=== PATIENT | female | born 1980 | race Caucasian/White ===

== ENCOUNTER 2022-07-15 13:50 | Outpatient (CLI) | payer OTHER, SELFPAY ==
--- NOTE | 2022-07-15 14:00 | CRLHL7_ITS ---
For Patients: As a result of the Century Cures Act, medical imaging exams and procedure reports are released immediately into your electronic medical record. You may view this report before your referring provider. If you have questions, please contact your health care provider. BILATERAL SCREENING MAMMOGRAM WITH COMPUTER-AIDED DETECTION AND TOMOSYNTHESIS TECHNIQUE: CC and MLO views were obtained. These mammographic images have been obtained using full-field digital technique. These mammographic images were interpreted with the benefit of computer-aided detection. Breast Tomosynthesis was used in this interpretation. COMPARISON FILM: 12/05/20, 10/08/19. FINDINGS: There are scattered areas of fibroglandular density IMPRESSION: There is no radiographic evidence for malignancy. ASSESSMENT: BI-RADS Category 1: Negative RECOMMENDATION: Routine screening mammogram in 1 year. A lay language report of this examination will be provided to the patient. Radhames Carlos M.D. Diagnostic Radiologist [email or web address] ARRON/Dictated by: Radhames Carlos MD @ 07/16/2022 10:36:00 AM (Electronically Signed)
== END 2022-07-15 13:51 | disposition home or self-care (01) ==
LOC: MAMMO 13:51
PROVIDERS: Visit Provider Registered Nurse
DX: Z12.31 Encounter for screening mammogram for malignant neoplasm of breast (principal)
CPT/HCPCS: 77063; 77067

== ENCOUNTER 2023-07-22 13:02 | Outpatient (CLI) | payer OTHER, SELFPAY ==
--- NOTE | 2023-07-22 13:20 | CRLHL7_ITS ---
For Patients: As a result of the Cures Act, medical imaging exams and procedure reports are released immediately into your electronic medical record. You may view this report before your referring provider. If you have questions, please contact your health care provider. BILATERAL SCREENING MAMMOGRAM WITH COMPUTER-AIDED DETECTION AND TOMOSYNTHESIS TECHNIQUE: CC and MLO views were obtained. These mammographic images have been obtained using full-field digital technique. These mammographic images were interpreted with the benefit of computer-aided detection. Breast Tomosynthesis was used in this interpretation. COMPARISON FILM: 07/15/22, 12/05/20, 10/08/19. FINDINGS: There are scattered areas of fibroglandular density IMPRESSION: There is no radiographic evidence for malignancy. ASSESSMENT: BI-RADS Category 1: Negative RECOMMENDATION: Routine screening mammogram in 1 year. A lay language report of this examination will be provided to the patient. Harry Martinez M.D. Diagnostic/Nuclear Medicine Radiologist [email or web address] ARRON/Dictated by: Harry Martinez MD @ 07/23/2023 10:39:00 AM (Electronically Signed)
== END 2023-07-22 13:03 | disposition home or self-care (01) ==
LOC: MAMMO 13:04
PROVIDERS: Visit Provider Registered Nurse
DX: Z12.31 Encounter for screening mammogram for malignant neoplasm of breast (principal)
CPT/HCPCS: 77063; 77067

== ENCOUNTER 2024-06-22 16:12 | Outpatient (CLI) | payer OTHER, SELFPAY ==
[2024-06-22 21:01] LABS: Chlamydia DNA Amplified* NOT DETECTED (No Detected); GC DNA Amplified* NOT DETECTED (No Detected)
== END 2024-06-22 16:13 | disposition home or self-care (01) ==
PROVIDERS: Visit Provider Registered Nurse
DX: Z01.419 Encounter for gynecological examination (general) (routine) without abnormal findings (principal); I10 Essential (primary) hypertension; R63.5 Abnormal weight gain; Z11.3 Encounter for screening for infections with a predominantly sexual mode of transmission; Z86.32 Personal history of gestational diabetes
CPT/HCPCS: 84443; 87491; 87591

== ENCOUNTER 2024-07-27 15:22 | Outpatient (CLI) | payer OTHER, SELFPAY ==
--- NOTE | 2024-07-27 15:40 | CRLHL7_ITS ---
For Patients: As a result of the Cures Act, medical imaging exams and procedure reports are released immediately into your electronic medical record. You may view this report before your referring provider. If you have questions, please contact your health care provider. BILATERAL SCREENING MAMMOGRAM WITH COMPUTER-AIDED DETECTION AND TOMOSYNTHESIS TECHNIQUE: CC and MLO views were obtained. These mammographic images have been obtained using full-field digital technique. These mammographic images were interpreted with the benefit of computer-aided detection. Breast Tomosynthesis was used in this interpretation. COMPARISON FILM: 07/22/23, 07/15/22, 12/05/20. FINDINGS: There are scattered areas of fibroglandular density IMPRESSION: There is no radiographic evidence for malignancy. ASSESSMENT: BI-RADS Category 2: Benign RECOMMENDATION: Routine screening mammogram in 1 year. A lay language report of this examination will be provided to the patient. Radhames Carlos M.D. Diagnostic Radiologist [email or web address] Transcribed: 4:15 p.marian carmen/Dictated by: Radhames Carlos MD @ 07/28/2024 9:08:00 AM (Electronically Signed)
== END 2024-07-27 15:23 | disposition home or self-care (01) ==
LOC: MAMMO 15:23
PROVIDERS: Visit Provider Registered Nurse
DX: Z12.31 Encounter for screening mammogram for malignant neoplasm of breast (principal)
CPT/HCPCS: 77063; 77067

== ENCOUNTER 2024-08-23 07:13 | Outpatient (CLI) | payer OTHER, SELFPAY ==
--- NOTE | 2024-08-23 08:19 | W.ANESCHARGE ---
Anesthesia Charges Start Date/Time Anesthesia Start Date: 08/23/24 Anesthesia Start Time: 07:53 Stop Date/Time Anesthesia Stop Date: 08/23/24 Anesthesia Stop Time: 08:17
--- NOTE | 2024-08-23 12:04 | W.ANESCHARGE ---
Anesthesia Charges Start Date/Time Anesthesia Start Date: 08/23/24 Anesthesia Start Time: 07:53 Stop Date/Time Anesthesia Stop Date: 08/23/24 Anesthesia Stop Time: 08:17
== END 2024-08-23 07:14 | disposition home or self-care (01) ==
LOC: OP CLINIC 07:14
PROVIDERS: Visit Provider Internal Medicine
DX: Z12.11 Encounter for screening for malignant neoplasm of colon (principal); Z86.010 Personal history of colon polyps
CPT/HCPCS: 00811; 00812; 45378; J2704

== ENCOUNTER 2024-12-02 10:53 | Outpatient (CLI) | payer OTHER, SELFPAY | END 2024-12-02 10:54 | disposition home or self-care (01) | LOC: NFLDREF 12-04 23:38 | PROVIDERS: Visit Provider Physician Assistant | DX: J02.9 Acute pharyngitis, unspecified (principal); N93.9 Abnormal uterine and vaginal bleeding, unspecified; N92.3 Ovulation bleeding | CPT/HCPCS: 87086 ==

== ENCOUNTER 2025-04-05 08:38 | Outpatient (CLI) | payer OTHER, SELFPAY | END 2025-04-05 08:39 | disposition home or self-care (01) | PROVIDERS: PCP Registered Nurse; Visit Provider Internal Medicine | DX: Z76.89 Persons encountering health services in other specified circumstances (principal); N02.B1 Recurrent and persistent immunoglobulin A nephropathy with glomerular lesion; I10 Essential (primary) hypertension | CPT/HCPCS: 99001 ==

== ENCOUNTER 2025-04-11 10:45 | Emergency (ER) | payer OTHER, SELFPAY ==
--- OUTSIDE RECORDS SUMMARY | 2025-04-11 10:48 | XMS_ITS | Encounter Summary ---
Author Organization [facility] Address [address] [place] [id number] Care Team Providers Care Satellite Tv Technician Installer Name Role Phone Elsewhere, Pcp Primary Care Provider Unavailabl e Encounter Details Date Type Department Care Team (Latest Contact Info) Description 03/24/2025 9:18 AM CDT - 03/24/2025 2:29 PM CDT Hospital Encounter Department of Laboratory Medicine and Pathology, [facility] in [place], [place] [address] [place] [address] Aleisha Sales T, AUTO WHEEL ALIGNMENT SPECIALIST, C.N.P. 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 No 03/30/2024 Social Connection and Isolat ion Panel [NHANES] Answer Date Recorded Frequency of Communication w ith Friends and Family Three times a week 07/16/2019 Frequency of Social Gatherin gs with Friends and Family Once a week 07/16/2019 Attends Islam Services More than 4 times per year 07/16/2019 Active Member of Clubs or Organizations No 07/16/2019 Attends Club or Organization Meetings Patient de veronicaed 07/16/2019 Marital Status 07/16/2019 AUDIT-C Answer Date Recorded Frequency of Alcohol Consumption 2-4 times a mon 06/17/2019 Average Number of Drinks 1 or 2 019 Frequency of Binge Drinking Less than monthly Overall Financial Resource Strain (CARDIA) Answe r Date Recorded Difficulty of Paying Living Expenses Not hard at all 06/17/2019 [facility] - Occupational Stress Questionnaire Answer Date Recorded Feeling of Stress Not at all 06/17/2019 Exercise Vital Sign Answer Date Recorde d On average, how many days pe r week do you engage in moderate to strenuous exercise (like a brisk walk)? 3 days 03/30/2024 On average, how many minutes do you engage in exercise at this level? 30 min 03/30/2024 Hunger Vital Sign Answer Date Recorded Within the past 12 months, y ou worried that your food would run out before you got the money to buy more. Never true 03/30/20 Within the past 12 months, t he food you bought just didn't last and you didn't have money to get more. Never true 03/30/2024 PRAPARE - Transportation Answer Date Re corded In the past 12 months, has l ack of transportation kept you from medical appointments or from getting medications? No 03/03 In the past 12 months, has l ack of transportation kept you from meetings, work, or from getting things needed for daily living? No 03/30/2024 Nutrition Answer Date Recorded On average, how many serving s of fruits and vegetables do you eat per day (serving size is equal to 1 cup or approximately the size of a tennis ball)? 3-5 03/30/2024 Dental Answer Date Recorded Dental: Regular Dentist Yes 04/07/20 Employment Answer Date Recorded Employment status Employed and actively working without restrictions 03/30/2024 Housing Stability Answer Date Recorded What is your living situation today? I have a [facility] place to live 03/30/2024 Education Answer Date Recorded What is the highest level of school you have completed or the highest degree you have received? 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 amoxicillin-pot clavulanate (Augmentin) 875-125 mg per tablet Take 1 tablet by mouth 2 (two) times a day. 12/20/2024 5 candesartan (ATACAND) 4 mg tablet Take 1 tablet by mouth daily. 5 cholecalciferol (Vitamin D3) 50 mcg (2,000 Unit) capsule Take 2,000 Units by mouth daily. 5 fluticasone propionate (Flovent HFA) 110 mcg/actuation inhaler Inhale 2 puffs 2 (two) times a day. Rinse mouth with water after use to reduce aftertaste and incidence of candidiasis. Do not swallow. 12 g 11 01/27/2025 5 hydroCHLOROthiazi de (MICROZIDE) 12.5 mg capsule Take 12.5 mg by mouth as directed. Every other day 5 predniSONE (Deltasone) 20 mg tablet Take 20 mg by mouth daily. TAKE 2 TABLETS BY MOUTH DAILY FOR 3 DAYS THEN TAKE 1 TABLET BY MOUTH DAILY FOR 2 DAYS 12/13/2024 5 documented as of this encounter Plan of Treatment Upcoming Encounters Date Type Department Care Team (Late st Contact Info) Description 04/26/2025 8:00 AM CDT Telemedicine Division of Nephrology and Hypertension in [place], [place] [address] [place] [address] Ángel Cleveland M.B.B.S. 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 LAB URINE ORDER PRUDENCE Final Result [facility] [address] [facility] 200 [place] [address] * Osmolality, Urine (03/24/2025 10:00 AM CDT) Osmolality, U 228 150 - 1150 mOsm/kg 03/24/2025 10:45 AM CDT DTL Urine 03/24/2025 10:0 0 AM CDT 03/24/2025 10:00 AM CDT Aleisha Sales APRN, C.N.P. LAB URINE ORDER PRUDENCE Final Result [facility] [address] 200 [place] [address] * pH, Urine (03/24/2025 10:00 AM CDT) Pathologist [facility] pH, U 5.6 4.5 - 8.0 03/24/2025 10: 45 AM CDT DT Urine 03/24/2025 10:0 0 AM CDT 03/24/2025 10:00 AM CDT Aleisha Sales APRN, C.N.P. LAB URINE ORDER PRUDENCE Final Result [facility] [address] 200 [place] [address] * Microscopic Automated (03/24/2025 10:00 AM CDT) Microscopy Normal 03/24/2025 10:27 AM CDT DTL RBC None Seen <3 /hpf 03/24/2025 10:27 AM CDT DTL WBC None Seen /hpf 03/24/2025 10:27 AM CDT DTL Comment: ----REFERENCE VALUE---- <4 (Males) <11 (Females) Urine 03/24/2025 10:0 0 AM CDT 03/24/2025 10:00 AM CDT us Aleisha Sales APRN, C.N.P. LAB URINE ORDER PRUDENCE Final Result Performing Organization Address [facility] de Phone Number [facility] [address] [place], [place] [phone] [place] [address] 200 [place] [address] * (ABNORMAL) Urinalysis, with Microscopic: Urine, Midstream (03/24/2025 10:00 AM CDT) Source Urine, Urine, Midstream 03/24/2025 10:00 AM CDT DTL Color, U Yellow 03/24/2025 10:00 AM CDT DTL Clarity, U Clear 03/24/2025 10:00 AM CDT DTL Protein, U 8 <26 mg/dL 03/24/2025 10:46 AM CDT DTL Protein/Osmol ality 0.35 <0.42 ratio 03/24/2025 10:46 AM CDT DTL Predicted 24 HR Protein, U 258(H) <229 mg/24 h 03/24/2025 10:46 AM CDT DTL Predicted Range 64-1046 mg/24 h 03/24/2025 10:46 AM CDT DTL Urine (Urine, Midstream) 03/24/2025 10:00 AM CDT 03/24/2025 10:00 AM CDT us Aleisha Sales APRN, C.N.P. 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
--- OUTSIDE RECORDS SUMMARY | 2025-04-11 10:48 | XMS_ITS | Encounter Summary ---
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 [address] [place] [address] Phone: tel: fax: [facility] Referral ID Status Reason Start Date Expiration Date Visits Re quested Visits Authorized [id number] Closed 03/24/2025 09/23/20[address] 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 [address] [place] [address] Phone: tel: fax: [facility] Referral ID Status Reason Start Date Expiration Date Visits Re quested Visits Authorized [id number] Closed 02/04/2025 08/06/2026 1 1 Encounter Details Date Type Department Care Team (Latest Contact Info) Description 03/24/2025 2:00 PM CDT Comprehensive Visit Division of Pulmonary Medicine in [place], [place] [address] [place] [phone] Atif Ambrose M.D. 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) Social History Tobacco Use Types Packs/Day Years Used Date Smoking Tobacco: Never Smokeless Tobacco: Never Alcohol Use Standard Drinks/Week Comments Yes 2 (1 standard drink = 0.6 oz pur e alcohol) 1-2 per week [facility] Utilities Answer Date Recorded In the past [...] and Family Once a week 07/16/2019 Attends Buddhism Services More than 4 times per year 07/16/2019 Active Member of Clubs or Organizations No 07/16/2019 Attends Club or Organization Meetings Patient murrayed 07/16/2019 Marital Status 07/16/2019 AUDIT-C Answer Date Recorded Frequency of Alcohol Consumption 2-4 times a mon 06/17/2019 Average Number of Drinks 1 or 2 019 Frequency of Binge Drinking Less than monthly Overall Financial Resource Strain (CARDIA) Answe r Date Recorded Difficulty of Paying Living Expenses Not hard at all 06/17/2019 [facility] Occupat ional [facility] - Occupational Stress [...] your living situation today? I have a [facility] place to live 03/30/2024 Education Answer Date Recorded What is the highest level of school you have completed or the highest degree you have received? 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 Gender Identity Female 05/12/2018 9:12 AM CDT Sexual Orientation Straight 05/12/2018 9: 12 AM CDT documented as of this encounter Last Filed Vital Signs Vital Sign Reading Time Taken Comments Blood Pressure 139/85 03/24/2025 1:53 PM CDT Pulse 80 03/24/2025 1:53 PM CDT Temperature 36.3 C (97.3 F) 03/24/2025 1:53 PM CDT Respiratory Rate - - Oxygen Saturation 98% 03/24/2025 1:53 PM CDT Inhaled Oxygen Concentration - - Weight 93.2 kg (205 lb 7.5 oz) 03/24/2025 1:53 P M CDT Height 170 cm (5' 6.93) 03/24/2025 1:53 PM CDT Body Mass Index 32.25 03/24/2025 1:53 PM CDT documented in this encounter H&P Notes * Atif Ambrose M.D. - 03/24/2025 2:00 PM CDT SUBJECTIVE CHIEF COMPLAINT / REASON FOR VISIT Mrs. Glendy Vieira is a 45 y.o. 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 VASCULITIS HISTORY Ms. Vieira has a history of IgA nephropathy (diagnosed at age 15, managed with blood pressure control) who was initially seen at the [facility] in 2012 for evaluation of shortness of breath. At that time she was found to have subglottic stenosis and she was also noted to have a positive MPO ANCA. She was told that vasculitis was in the list of differentials. She was referred to ENT to evaluate thesubglottic stenosis. She had a CO2 laser resection, Kenalog injections, mitomycin injections and steroid therapy without much relief in 2012. 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 In addition, working out would be even more challenging than usual. She was then seen by Dr. Vargas in clinic. It was noted that her MPO ANCA was still positive. She was also seen by ENT and was started on 40 mg of prednisone to taper over 2 months based on their exam showing inflammation in the infraglottic area. They had talked about starting Flonase as well but ultimately decided to go with oral steroids. In addition, she was referred to GI for evaluation of reflux. She does have acid reflux whileupright based on ambulatory pH monitoring and was restarted on omeprazole. She feels that while shewas on prednisone, she had improved in terms of shortness of breath but she did gain weight while on it. She has been off steroids since summer She also has Raynaud's phenomenon which she has had since childhood. She also has cold-induced urticaria managed with Zyrtec. Finally, she is allergic to sulfa. Last seen here in 2020. At that time no signs or symptoms suggesting worsening of her subglottic stenosis or the development of other symptoms of vasculitis over the preceding 2 years. No immunosuppressinve therapy recommended, but continuation of Flovent 2 puffs twice daily, omeprazole 40 mg dailyand dietary and behavioral reflux precautions. HISTORY OF PRESENT ILLNESS Since her last visit here 4 years ago she has continued to do well. She has not experienced any progressive dyspnea on exertion suggesting any organ system involvement of MPO ANCA associated vasculitis. She was evaluated at the end of January by Aleisha Sales in ENT, and no progressive narrowing in the subglottic region was noted. Her return evaluation in ENT was prompted by a prolonged (almost 2 months) conley with respiratory symptoms in the aftermath of an influenza infection around [place]. These symptoms have since completely resolved. OBJECTIVE Vitals: 03/24/25 1353 BP: 139/85 Patient Position: Sitting Pulse: 80 Temp: 36.3 ??C Height: 170 cm Weight: 93.2 kg SpO2: 98% TempSrc: Temporal PHYSICAL EXAM General: Well appearing. No conversational dyspnea. No coughing during evaluation. 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 C-reactive protein is mildly elevated of 5.5, which is better than testing obtained with the last 6 years. Her MPO ANCA level remains elevated at 7.7. Urinalysis shows trace hemoglobin and mild proteinuria at 258. No chest roentgenogram was obtained at this visit. Complete pulmonary function testing showed normal lung volumes, flows and diffusing capacity, representing no change compared to last testing in 2020. Again, there is no evidence for any disease activity of MPO ANCA associated vasculitis, and consequently no reason for immunosuppression from that end. In light of her IgA nephropathy, the gradually rising serum creatinine is of concern, and in light of the latest evidence the mere observation approach, given her young age, may no longer reflect thestate of the art. I discussed this with Dr. Marie from on glomerulonephritis clinic, and she kindly agreed to see Mrs Vieira on April 08 or consultation. documented in this encounter Plan of Treatment Upcoming Encounters Date Type Department Care Team (Late st Contact Info) Description 04/26/2025 8:00 AM CDT Telemedicine Division of Nephrology and Hypertension in [place], [place] [address] [place] [phone] Ángel Cleveland M.B.B.S. 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
--- OUTSIDE RECORDS SUMMARY | 2025-04-11 10:48 | XMS_ITS | Encounter Summary ---
Author Organization [facility] Address [address] [place] [address] Care Team Providers Care Vice President Of Instruction Name Role Phone Elsewhere, Pcp Primary Care Provider Unavailabl e Reason for Visit * Outpatient (Routine) - Closed Specialty Diagnoses / Procedures Referred By Parul chauhan Referred To Contact Otorhinolaryngology Aleisha Sales APRN, C.N.P. [address] [place] [phone] Phone: tel: fax: [facility] Referral ID Status Reason Start Date Expiration Date Visits Re quested Visits Authorized [id number] Closed 02/01/2025 08/03/2026 1 1 Encounter Details Date Type Department Care Team (Latest Contact Info) Description 03/24/2025 11:15 AM CDT Office Visit Department of Otorhinolaryngology in [place], [place] [address] [place] [phone] Aleisha Sales APRN, C.N.P. 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 No 03/30/2024 Social Connection and Isolat ion Panel [NHANES] Answer Date Recorded Frequency of Communication w ith Friends and Family Three times a week 07/16/2019 Frequency of Social Gatherin gs with Friends and Family Once a week 07/16/2019 Attends Adventism Services More than 4 times per year [...] Living Expenses Not hard at all 06/17/2019 [facility] of Occupat ional Health - Occupational Stress [...] your living situation today? I have a mini place to live 03/30/2024 Education Answer Date Recorded What is the highest level of school you have completed or the highest degree you have received? Master's degree (e.g., MA, MS, Viraj, MEd, CP BLEACHER OPERATOR, SIMONE) 06/16/2019 Comments Unknown Sex and Gender Information Value Date Recorded Sex Assigned at Female 05/12/2018 9:12 AM CDT Legal Sex Female 5:22 PM PHOTOGRAPHER'S MODEL Gender Identity Female 05/12/2018 9:12 AM CDT Sexual Orientation Straight 05/12/2018 9: 12 AM CDT documented as of this encounter Progress Notes * Aleisha Sales, CORAL, C.N.P. - 03/24/2025 11:15 AM CDT Images from the original note were not included. The patient verbally consented to an audio recording of their visit to assist with the completion of documentation. SUBJECTIVE CHIEF COMPLAINT/ REASON FOR VISIT 1. Granulomatosis with polyangiitis 2. 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 Glendy Vieira is a 45 year old female with granulomatosis with polyangiitis and subglottic stenosis who presents for evaluation of her breathing difficulties. She experienced worsening breathing, particularly at night, with episodes of severe difficulty during her last visit in January 2025. Infraglottic edema was noted at that time. She was started on Flovent, 110 mcg, two puffs twice a day. She then switch to Arnuity Ellipta 1 puff daily. Overall, shenotes a significant improvement in her breathing with no ???scary?? episodes of shortness of breath. However, she still experiences shortness of breath when walking up stairs or talking while walking.Severe episodes have not recurred, and she feels the influenza has resolved. She is scheduled for pulmonary function testing early this afternoon and follow up with Dr. Ambrose for assessment of her GPA. She reports her peak flow meter readings are in the 350 range and overall she can complete all activities of daily living without difficulty CURRENT MEDICATIONS Reviewed and updated in the EMR. Allergies Allergen Reactions Midazolam Hypotension (Reselect Reaction) Sulfa (Sulfonamide Antibiotics) Itching Erythromycin Rash OBJECTIVE PHYSICAL EXAMINATION Physical Exam HEENT: Ears normal. Vocal cords improved, less erythematous. General: 45 y.o. year old female, in no acute distress. Skin: No rashes or lesions. Ears: Bilateral canals and TM's normal. Nose: [place] and moist. Oral Cavity: [place] and moist. Mucous membranes normal . [place] dentition noted. Neck: No palpable lymphadenopathy. PROCEDURE NOTE Procedure: Tracheoscopy Details: After verbal consent obtained, topical decongestion and anesthesia with lidocaine and phenylephrinewas applied. The flexible laryngoscope was inserted on the left side. The nasal cavity, nasopharynx, oropharynx, and hypopharynx were normal. The larynx was anesthetized with 4% lidocaine via the EZ sprayer. At the level of the larynx, the epiglottis, false vocal folds, true vocal folds, arytenoids, and pyriform sinuses are without masses or lesions. The true vocal folds are mobile bilaterally. The scope was advanced below the glottis into the subglottis and upper trachea with edema noted in the infraglottic region, less erythema than the prior exam. The patient tolerated the procedure well. 01/2024 - initiated inhaled steroid 03/24/25 ASSESSMENT / PLAN #1 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) #2 Stenosis Subglottic Assessment & Plan Subglottic/infraglottic stenosis Improved breathing, reduced infraglottic edema, no recent respiratory distress, minor exertional limitations. Inhaled steroid therapy beneficial. - Continue Arnuity Ellipta, one puff daily. - Rinse and gargle after using inhaled steroid. - Perform pulmonary function testing today, as scheduled - Consult with Dr. Ambrose in pulmonary medicine, later today has scheduled - Review pulmonary function test results and Dr. Ambrose consult with sales representative cash registers. - Follow up after reviewing test results and consulting with sales representative cash registers. PATIENT EDUCATION: Ready to learn, no apparent learning barriers were identified; learning preferences include listening. Explained diagnosis and treatment plan; patient expressed understanding of the content. documented in this encounter Plan of Treatment Upcoming Encounters Date Type Department Care Team (Late st Contact Info) Description 04/26/2025 8:00 AM CDT Telemedicine Division of Nephrology and Hypertension in [place], [place] [address] [place] [phone] Ángel Cleveland M.B.BMatheusS. [address] [place] [phone] Sylvia Jackman, NERYN, LD [address] [place] [phone] documented as of this encounter Visit Diagnoses Diagnosis 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)- Primary Stenosis Subglottic documented in this encounter Care Teams Vice President Of Instruction Relationship Specialty Start Date End Date Elsewhere, Pcp PCP - General Family Medicine 07/16/18 documented as of this encounter
--- OUTSIDE RECORDS SUMMARY | 2025-04-11 10:48 | XMS_ITS | Encounter Summary ---
Author Organization [facility] Address [address] [place] [address] Care Team Providers Care Digester Name Role Phone Elsewhere, Pcp Primary Care Provider Unavailabl e Encounter Details Date Type Department Care Team (Latest Contact Info) Description 03/24/2025 9:18 AM CDT - 03/24/2025 2:29 PM CDT Hospital Encounter Department of Laboratory Medicine and Pathology, [facility] in [place], [place] [address] [place] [phone] Aleisha Sales T, MACHINE TOOL OPERATOR, C.N.P. [address] [place] [phone] 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); Stenosis Subglottic Discharge Disposition: Home or Self Care Social History Tobacco Use Types Packs/Day Years Used Date Smoking Tobacco: Never Smokeless Tobacco: Never Alcohol Use Standard Drinks/Week Comments Yes 2 (1 standard drink = 0.6 oz pur e alcohol) 1-2 per week [facility] Utilities Answer Date Recorded In the [...] and Family Once a week 07/16/2019 Attends Catholic Services More than 4 times per [...] Living Expenses Not hard at all 06/17/2019 [employer] of Occupat ional Health - Occupational Stress [...] Master's degree (e.g., MA, MS, Viraj, MEd, EMERGENCY DISPATCH OPERATOR, SIMONE) 06/16/2019 Comments Unknown Sex and Gender Information Value Date Recorded Sex Assigned at Female 05/12/2018 9:12 AM CDT Legal Sex Female 5:22 PM ACCOUNT SERVICES ANALYST Gender Identity Female 05/12/2018 9:12 AM CDT [...] Telemedicine Division of Nephrology and Hypertension in [place], [place] [address] [place] [address] Ángel Cleveland M.B.B.S. [address] [place] [address] Sylvia Jackman, NERYN, LD [address] [place] [phone] documented as of this encounter Procedures Procedure Name Priority Date/Time Associated Diagnosis Comments ANCA VASCULITIS PANEL, S Routine 03/24/2025 9:27 AM CDT 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) Stenosis Subglottic CYTOPLASMIC NEUTROPHIL ABS, S Routine 03/24/2025 9:27 AM CDT CBC WITH DIFFERENTIAL, B Routine 03/24/2025 9:27 AM CDT 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) Stenosis Subglottic C-REACTIVE PROTEIN (CRP), S/P Routine 03/24/2025 9:27 AM CDT 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) Stenosis Subglottic URIC ACID, S/P Routine 03/24/2025 9:27 AM CDT 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) Stenosis Subglottic PHOSPHORUS (INORGANIC), S Routine 03/24/2025 9:27 AM CDT 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) Stenosis Subglottic GLUCOSE, FASTING, S/P Routine 03/24/2025 9:27 AM CDT 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) Stenosis Subglottic COMPREHENSIVE METABOLIC PANEL, S/P Routine 03/24/2025 9:27 AM CDT 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) Stenosis Subglottic documented in this encounter Results * (ABNORMAL) Cytoplasmic Neutrophil Antibodies (03/24/2025 9:27 AM CDT) c-ANCA Negative Negative 03/28/2025 9:33 AM CDT [facility] Perinuclear (P-ANCA) Positive(A) Negative 03/28/2025 9:33 AM CDT [facility] Comment: Positive for MPO antibodies by solid-phase immunoassay and pANCA pattern by immunofluorescence. Consistent with ANCA-associated vasculitis, if compatible clinical features are present. ----ADDITIONAL INFORMATION---- This test was developed and its performance characteristics determined by [facility] in a manner consistent with CLIA requirements. This test has not been cleared or approved by the U.S. Food and Drug Administration. Blood 03/24/2025 9:27 AM CDT 03/24/2025 1:46 PM CDT Aleisha Sales APRN, C.N.P. LAB BLOOD ADD-O N Final Result Performing Organization Address City/[facility]/ZIP Co de Phone Number [facility] [address] [place] [address] [facility] [address] [place] [address] [place] [address] * Uric Acid (03/24/2025 9:27 AM CDT) Pathologist [facility] Uric Acid, S 5.6 2.7 - 6.1 mg/dL 03/24/2025 10:42 AM CDT DT Blood (Blood, Venous) 03/24/2025 9:27 AM CDT 03/24/2025 10:12 AM CDT Aleisha Sales APRN, C.N.P. LAB BLOOD ADD-O N Final Result [facility] [address] [place] [address], [place] [facility] [address] [place] [address] * Phosphorus Inorganic (03/24/2025 9:27 AM CDT) Pathologist [facility] Phosphorus (Inorganic), S 3.0 2.5 - 4.5 mg/dL 03/24/2025 10:42 AM CDT DTL Blood (Blood, Venous) 03/24/2025 9:27 AM CDT 03/24/2025 10:12 AM CDT Aleisha Sales APRN, C.N.P. LAB BLOOD ADD-O N Final Result Performing Organization Address City/[facility]/ZIP Co de Phone Number [facility] [address] [place] [address], [facility] [address] [place] [address] * (ABNORMAL) Glucose, Fasting (03/24/2025 9:27 AM CDT) Glucose, P 117(H) 70 - 100 mg/dL 03/24/2025 11:07 AM CDT DTL Last Intake 3 hr 03/24/2025 10:01 AM CDT DT Blood (Blood, Venous) 03/24/2025 9:27 AM CDT 03/24/2025 10:01 AM CDT Aleisha Sales APRN, C.N.P. LAB BLOOD NON A DD-ON Final Result Performing Organization Address [facility] Co de Phone Number [facility] [address] [place] [address], [facility] [address] [place] [address] * (ABNORMAL) CRP (C-Reactive Protein) (03/24/2025 9:27 AM CDT) C-Reactive Protein (CRP), S 5.5(H) <5.0 mg/L 03/24/2025 10:42 AM CDT DTL Blood (Blood, Venous) 03/24/2025 9:27 AM CDT 03/24/2025 10:12 AM CDT Aleisha Sales APRN, C.N.P. LAB BLOOD ADD-O N Final Result [facility] [address] [place] [address], [place] DTL [facility] [address] [place] [address] * (ABNORMAL) Comprehensive Metabolic Panel (03/24/2025 9:27 AM CDT) Potassium, S 5.0 3.6 - 5.2 mmol/L 03/24/2025 10:46 AM CDT DTL Sodium, S 140 135 - 145 mmol/L 03/24/2025 10:46 AM CDT DTL Chloride, S 106 98 - 107 mmol/L 03/24/2025 10:46 AM CDT DTL Bicarbonate, S 24 22 - 29 mmol/L 03/24/2025 10:42 AM CDT DTL Anion Gap 10 7 - 15 03/24/2025 10:46 AM CDT DTL BUN (Blood Urea Nitrogen), S 29(H) 6 - 21 mg/dL 03/24/2025 10:42 AM CDT DTL Creatinine 1.24(H) 0.59 - 1.04 mg/dL 03/24/2025 10:42 AM CDT DTL Estimated GFR (eGFR) 54(L) >=60 mL/min/BS A 03/24/2025 10:42 AM CDT DTL Comment: Estimated GFR calculated using the 2020 CKD_EPI creatinine equation. Calcium, Total, S 10.3(H) 8.6 - 10.0 mg/dL 03/24/2025 10:42 AM CDT DTL Glucose, S CANCELED mg/dL 03/24/2025 10:12 AM CDT DTL Comment: Duplicate test request. Result canceled by the ancillary. Protein, Total, S 7.0 6.3 - 7.9 g/dL 03/24/2025 10:42 AM CDT DTL Albumin, S 4.4 3.5 - 5.0 g/dL 03/24/2025 10:42 AM CDT DTL Aspartate Aminotransferase (AST), S 16 8 - 43 U/L 03/24/2025 10:42 AM CDT DTL Alkaline Phosphatase, S 61 35 - 104 U/L 03/24/2025 10:42 AM CDT DTL Alanine Aminotransferase (ALT), S 19 7 - 45 U/L 03/24/2025 10:42 AM CDT DTL Bilirubin, Total, S 0.6 0.0 - 1.2 mg/dL 03/24/2025 10:42 AM CDT DTL Blood (Blood, Venous) 03/24/2025 9:27 AM CDT 03/24/2025 10:12 AM CDT us Aleisha Sales APRN, C.N.P. LAB BLOOD ADD-O N Final Result [facility] [address] [place] [address], [place] [facility] [address] [place] [address] * (ABNORMAL) CBC with Differential, Blood (03/24/2025 9:27 AM CDT) Hemoglobin 15.6(H) 11.6 - 15.0 g/dL 03/24/2025 10:03 AM CDT DTL Hematocrit 46.7(H) 35.5 - 44.9 % 03/24/2025 10:03 AM CDT DTL Erythrocytes 5.12 3.92 - 5.13 x10(12)/L 03/24/2025 10:03 AM CDT DTL MCV 91.2 78.2 - 97.9 fL 03/24/2025 10:03 AM CDT DTL RBC Distrib Width 12.6 12.2 - 16.1 % 03/24/2025 10:03 AM CDT DTL Platelet Count 271 157 - 371 x10(9)/L 03/24/2025 10:03 AM CDT DTL Leukocytes 8.2 3.4 - 9.6 x10(9)/L 03/24/2025 10:03 AM CDT DTL Neutrophils 5.77 1.56 - 6.45 x10(9)/L 03/24/2025 10:03 AM CDT DHPM Lymphocytes 1.66 0.95 - 3.07 x10(9)/L 03/24/2025 10:03 AM CDT DTL Monocytes 0.51 0.26 - 0.81 x10(9)/L 03/24/2025 10:03 AM CDT DTL Eosinophils 0.17 0.03 - 0.48 x10(9)/L 03/24/2025 10:03 AM CDT DTL Basophils 0.06 0.01 - 0.08 x10(9)/L 03/24/2025 10:03 AM CDT DTL Blood (Blood, Venous) 03/24/2025 9:27 AM CDT 03/24/2025 9:49 AM CDT us Aleisha Sales APRN, C.N.P. LAB BLOOD ADD-O N Final Result Performing Organization Address City/[facility]/ZIP Co de Phone Number [facility] [address] [place] [address], [place] DTL [facility] [address] [place] [address] DHPM [facility] [address] [place] [address] * (ABNORMAL) ANCA (Antineutrophil Cytoplasmic Antibodies) Vasculitis Panel (03/24/2025 9:27 AM CDT) Myeloperoxidase Ab, S 7.7(H) <0.4 (Negative ) U 03/24/2025 1:38 PM CDT [facility] Comment:Interpretation: Posi tive (>=1.0) Proteinase 3 Ab (PR3), S <0.2 <0.4 (Negative ) U 03/24/2025 1:38 PM CDT [facility] Blood (Blood, Venous) 03/24/2025 9:27 AM CDT 03/24/2025 11:57 AM CDT us Aleisha Sales APRN, C.N.P. LAB BLOOD ADD-O N Final Result Performing Organization Address City/[facility]/ZIP Co de Phone Number [facility] [address] [place] [address] [facility] [address] [place] [place] [address] documented in this encounter Visit Diagnoses Diagnosis 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) Stenosis Subglottic documented in this encounter Care Teams Digester Relationship Specialty Start Date End Date Elsewhere, Pcp PCP - General Family Medicine 07/16/18 documented as of this encounter
--- OUTSIDE RECORDS SUMMARY | 2025-04-11 10:49 | XMS_ITS | Encounter Summary ---
Author Organization [facility] Address [address] [place] [address] Phone Care Team Providers Care Raisin Washer Name Role Phone Flores Carter MD Primary Care Provider [phone] Reason for Visit * Reason Comments Med Refill Encounter Details Date Type Department Care Team (Late st Contact Info) Description 10/11/2022 Refill [facility] [address] [place], [place] [phone] Micky Chandra PA [address] [place], [place] [address] Chronic kidney disease stage 2; IgA nephropathy; Essential (primary) hypertension; Proteinuria, not otherwise specified Social History Tobacco Use Types Packs/Day Years Used Date Smoking Tobacco: Former Cigarettes Smokeless Tobacco: Never Comments:In college Alcohol Use Standard Drinks/Week Comments Yes 2 (1 standard drink = 0.6 oz pur e alcohol) Comments Unknown Sex and Gender Information Value Date Recorded Sex Assigned at Not on file Legal Sex Female 3:46 PM MDT Gender Identity Not on file Sexual Orientation Not on file documented as of this encounter Plan of Treatment Not on file documented as of this encounter Visit Diagnoses Diagnosis Chronic kidney disease stage 2 IgA nephropathy Essential (primary) hypertension Proteinuria, not otherwise specified documented in this encounter Care Teams Raisin Washer Relationship Specialty Start Date End Date Flores Carter MD [address] [place] [address] PCP - General 06/12/23 documented as of this encounter
--- OUTSIDE RECORDS SUMMARY | 2025-04-11 10:49 | XMS_ITS | Encounter Summary ---
Author Organization [facility] Address [address] [place] [address] Care Team Providers Care Privacy Analyst Name Role Phone Elsewhere, Pcp Primary Care Provider Unavailabl e Encounter Details Date Type Department Care Team (Late st Contact Info) Description 03/21/2025 Orders Only Virtual Review in [place], [place] [address] [place] [address] Beatris Mendiola Social History Tobacco Use Types Packs/Day Years Used Date Smoking Tobacco: Never Smokeless Tobacco: Never Alcohol Use Standard Drinks/Week Comments Yes 2 (1 standard drink = 0.6 oz pur e alcohol) 1-2 per week [facility] Utilities Answer Date Recorded In the past [...] and Family Once a week 07/16/2019 Attends [employer] Services More than 4 times per year [...] Living Expenses Not hard at all 06/17/2019 [facility] of Occupat ional Health - Occupational Stress [...] your living situation today? I have a [facility] place to live 03/30/2024 Education Answer Date Recorded What is the highest level of school you have completed or the highest degree you have received? Master's degree (e.g., MA, MS, Viraj, MEd, SHELLFISH MEAT SEPARATOR OPERATOR, SIMONE) 06/16/2019 Comments Unknown Sex and Gender Information Value Date Recorded Sex Assigned at Female 05/12/2018 9:12 AM CDT Legal Sex Female 5:22 PM DISPENSARY CLERK Gender Identity Female 05/12/2018 9:12 AM CDT Sexual Orientation Straight 05/12/2018 9: 12 AM CDT documented as of this encounter Plan of Treatment Upcoming Encounters Date Type Department Care Team (Late st Contact Info) Description 04/26/2025 8:00 AM CDT Telemedicine Division of Nephrology and Hypertension in [place], [place] [address] [place] [phone] Ángel Cleveland M.B.B.S. [address] [place] [phone] Sylvia Jackman, RDN, LD [address] [place] [phone] documented as of this encounter Visit Diagnoses Not on filedocumented in this encounter Care Teams Privacy Analyst Relationship Specialty Start Date End Date Elsewhere, Pcp PCP - General Family Medicine 07/16/18 documented as of this encounter
--- OUTSIDE RECORDS SUMMARY | 2025-04-11 10:49 | XMS_ITS | Encounter Summary ---
Author Organization [facility] Address [address] [place] [address] Care Team Providers Care Heel Trimmer Name Role Phone Elsewhere, Pcp Primary Care Provider Unavailabl e Reason for Visit * Reason Onset Date Comments Appt Request 02/04/2025 Encounter Details Date Type Department Care Team (Late st Contact Info) Description 02/04/2025 Clinical Communication Division of Pulmonary Medicine in [place], [place] [address] [place] [phone] Atif Ambrose M.D. [address] [place] [phone] Appt Request Social History Tobacco Use Types Packs/Day Years Used Date Smoking Tobacco: Never Smokeless Tobacco: Never Alcohol Use Standard Drinks/Week Comments Yes 2 (1 standard drink = 0.6 oz pur e alcohol) 1-2 per week [facility] Utilities Answer Date Recorded In the past 12 months has e [employer], gas, oil, or water [employer] threatened to shut off services in your home? No 03/30/2024 Social Connection and Isolat ion Panel [NHANES] Answer Date Recorded Frequency of Communication w ith Friends and Family Three times a week 07/16/2019 Frequency of Social Gatherin gs with Friends and Family Once a week 07/16/2019 Attends Protestant Services More than 4 times per year [...] Living Expenses Not hard at all 06/17/2019 [facility] of Occupat ional Health - Occupational Stress [...] your living situation today? I have a [facility] place to live 03/30/2024 Education Answer Date Recorded What is the highest level of school you have completed or the highest degree you have received? Master's degree (e.g., MA, MS, Viraj, MEd, FISHERIES INSPECTOR, SIMONE) 06/16/2019 Comments Unknown Sex and Gender Information Value Date Recorded Sex Assigned at Female 05/12/2018 9:12 AM CDT Legal Sex Female 5:22 PM TOP AND SEAT COVER FITTER Gender Identity Female 05/12/2018 9:12 AM CDT Sexual Orientation Straight 05/12/2018 9: 12 AM CDT documented as of this encounter Plan of Treatment Upcoming Encounters Date Type Department Care Team (Late st Contact Info) Description 04/26/2025 8:00 AM CDT Telemedicine Division of Nephrology and Hypertension in [place], [place] [address] [place] [address] Ángel Cleveland M.B.B.S. [address] [place] [address] Sylvia Jackman, NERYN, LD [address] [place] [phone] documented as of this encounter Visit Diagnoses Not on filedocumented in this encounter Care Teams Heel Trimmer Relationship Specialty Start Date End Date Elsewhere, Pcp PCP - General Family Medicine 07/16/18 documented as of this encounter
--- OUTSIDE RECORDS SUMMARY | 2025-04-11 10:49 | XMS_ITS | Clinical Summary ---
Author Organization [facility] Address [address] [place] [address] Phone Care Team Providers Care Engine Repairer Production Name Role Phone Flores Carter MD Primary Care Provider [phone] Allergies Active Allergy Reactions Criticality Noted Date Comments Erythromycin Rash Low 12/17/2005 Sulfa Antibiotics Itching Low 07/28/2024 Midazolam 01/19/2020 Medications cetirizine (ZyrTEC) 10 MG tablet Take 10 mg by mouth 1 (one) time each day Active norethindrone (MICRONOR) 0.35 MG tablet Take 1 tablet by mouth 1 (one) time each day Active Cholecalciferol (Vitamin D) 50 MCG (1999 UT) capsule Take 2,000 Units by mouth 1 (one) time each day Active hydroCHLOROthiaz summer 12.5 MG tablet TAKE 1 TABLET(12.5 MG) BY MOUTH EVERY OTHER DAY 45 tablet 3 12/21/2024 Active candesartan (ATACAND) 4 MG tabletIndication s:Chronic kidney disease stage 2,IgA nephropathy,Esse ntial (primary) hypertension,Pro teinuria, not otherwise specified TAKE 1 TABLET(4 MG) BY MOUTH EVERY DAY 90 tablet 3 01/02/2025 Active Active Problems Problem Noted Date Diagnosed Date Hyperglycemia 06/12/2023 Other specified disease of upper respiratory tra ct 02/18/2019 Chronic kidney disease stage 2 10/03/2016 Acute upper respiratory infection 10/03/2016 Diarrhea 10/03/2016 IgA nephropathy 03/21/2016 Proteinuria 03/23/2015 Essential (primary) hypertension 08/16/2013 Immunizations Immunization Administration Dates Next Due Influenza, Injectable, Quadr ivalent, Preservative Free 10/12/2022,11/01/2021,10/03/2020,2018,10/20/2018,09/13/2016,09/04/2015,1 12/19/2011 Moderna Sars-cov-2 Vaccination 10/19/2021,2020,01/02/2021 TD Preservative Free 12/01/1996 Tdap 09/04/2015,07/05/2008 Family History Medical History Relation Comments COPD Brother 1 Hypertension Brother 2 ADD / ADHD Daughter COPD Father Depression Father Hypertension Father Hypertension Mother ADD / ADHD Son Kidney disease Neg Hx Relation Status Comments Brother 1 Alive Brother 2 Alive Daughter Alive Father Alive Mother Alive Son Alive Social History Tobacco Use Types Packs/Day Years Used Date Smoking Tobacco: Former Cigarettes Smokeless Tobacco: Never Tobacco Cessation:Counseling Given: No Comments:In college Alcohol Use Standard Drinks/Week Comments Yes 2 (1 standard drink = 0.6 oz pur e alcohol) Comments No Sex and Gender Information Value Date Recorded Sex Assigned at Not on file Legal Sex Female 3:46 PM MDT Gender Identity Not on file Sexual Orientation Not on file Last Filed Vital Signs Vital Sign Reading Time Taken Comments Blood Pressure 115/75 07/28/2024 2:29 PM CDT Pulse 68 07/28/2024 2:29 PM CDT Temperature 36.3 C (97.4 F) 07/28/2024 2:29 PM CDT Respiratory Rate 16 06/12/2023 9:24 AM CDT Oxygen Saturation 100% 06/12/2023 9:24 AM CDT Inhaled Oxygen Concentration - - Weight 96.2 kg (212 lb) 07/28/2024 2:29 PM CDT Height 170.2 cm (5' 7) 06/12/2023 9:24 AM CDT Body Mass Index 33.2 06/12/2023 9:24 AM CDT Plan of Treatment Health Maintenance Due Date Last Done Comments Pneumococcal PPSV23 Highest Risk Adult (1 of 3 - PCV13) 1998 COVID-19 Vaccine (4 - 2023-2 5 season) 2024 10/19/2021, 2021, 01/02/2021 Influenza Vaccine (Season Ended) 2025 10/12/2022, 11/01/2021, 10/03/2020, Additional history exists Insurance PM INTERFACED INSURANCE PM INTERFACED INSURANCE Care Teams Engine Repairer Production Relationship Specialty Start Date End Date Flores Carter MD [address] [place] [address] PCP - General 06/12/23
--- OUTSIDE RECORDS SUMMARY | 2025-04-11 10:49 | XMS_ITS | Encounter Summary ---
Author Organization [facility] Address [address] [place] [address] Care Team Providers Care Lehr Cutter Name Role Phone Elsewhere, Pcp Primary Care Provider Unavailabl e Encounter Details Date Type Department Care Team (Latest Contact Info) Description 02/03/2025 Clinical Communication Department of Otorhinolaryngology in [place], [place] [address] [place] [phone] Aleisha Sales T, MATTRESS INSPECTOR, C.N.P. [address] [place] [phone] Social History Tobacco Use Types Packs/Day Years Used Date Smoking Tobacco: Never Smokeless Tobacco: Never Alcohol Use Standard Drinks/Week Comments Yes 2 (1 standard drink = 0.6 oz pur e alcohol) 1-2 per week [facility] Utilities Answer Date Recorded In the past 12 months has e [employer], gas, oil, or water [employer] threatened to shut off services in your home? No 03/30/2024 Social Connection and Isolat ion Panel [NHANES] Answer Date Recorded Frequency of Communication w ith Friends and Family Three times a week 07/16/2019 Frequency of Social Gatherin gs with Friends and Family Once a week 07/16/2019 Attends Rastafarian Services More than 4 times per year 07/16/2019 Active Member of Clubs or Organizations No 07/16/2019 Attends Club or Organization Meetings Patient de clined 07/16/2019 Marital Status 07/16/2019 AUDIT-C Answer Date Recorded Frequency of Alcohol Consumption 2-4 times a mon 06/17/2019 Average Number of Drinks 1 or 2 07/18/2 019 Frequency of Binge Drinking Less than monthly Overall Financial Resource Strain (CARDIA) Answe r Date Recorded Difficulty of Paying Living Expenses Not hard at all 06/17/2019 [facility] of Occupat ional Health - Occupational Stress [...] money to buy more. Never true 03/30/20 24 Within the past 12 months, t he [...] living situation today? I have a [facility] place to live 03/30/2024 Education Answer Date Recorded What is the highest level of school you have completed or the highest degree you have received? Master's degree (e.g., MA, MS, Viraj, MEd, MANAGER DIVISION, SIMONE) 06/16/2019 Comments Unknown Sex and Gender Information Value Date Recorded Sex Assigned at Female 05/12/2018 9:12 AM CDT Legal Sex Female 5:22 PM PSYCHIATRIC TECHNICIAN ASSISTANT Gender Identity Female 05/12/2018 9:12 AM CDT Sexual Orientation Straight 05/12/2018 9: 12 AM CDT documented as of this encounter Plan of Treatment Upcoming Encounters Date Type Department Care Team (Late st Contact Info) Description 04/26/2025 8:00 AM CDT Telemedicine Division of Nephrology and Hypertension in [place], [place] [address] [place] [address] Ángel Cleveland M.B.B.S. [address] [place] [phone] Sylvia Jackman, RDN, LD [address] [place] [phone] documented as of this encounter Visit Diagnoses Not on filedocumented in this encounter Care Teams Lehr Cutter Relationship Specialty Start Date End Date Elsewhere, Pcp PCP - General Family Medicine 07/16/18 documented as of this encounter
--- OUTSIDE RECORDS SUMMARY | 2025-04-11 10:49 | XMS_ITS | Encounter Summary ---
Author Organization [facility] Address [address] [place] [address] Care Team Providers Care Pilot Boat Operator Name Role Phone Elsewhere, Pcp Primary Care Provider Unavailabl e Reason for Visit * Reason Onset Date Comments Med Refill 03/01/2025 Encounter Details Date Type Department Care Team (Late st Contact Info) Description 03/01/2025 Refill Department of Otorhinolaryngology in [place], [place] [address] [place] [phone] Aleisha Sales T, OUT AND OUT CIGAR MAKER HAND, C.N.P. [address] [place] [phone] Med Refill Social History Tobacco Use Types Packs/Day Years Used Date Smoking Tobacco: Never Smokeless Tobacco: Never Alcohol Use Standard Drinks/Week Comments Yes 2 (1 standard drink = 0.6 oz pur e alcohol) 1-2 per week [facility] Utilities Answer Date Recorded In the past 12 months has [employer], gas, oil, or water [employer] threatened to shut off services in your [...] Living Expenses Not hard at all 06/17/[address] [facility] [address] of Occupat ional Health - Occupational Stress [...] your living situation today? I have a [facility] place to live 03/30/2024 Education Answer Date Recorded What is the highest level of school you have completed or the highest degree you have received? Master's degree (e.g., MA, MS, Viraj, MEd, SURVEYOR HELPER, SIMONE) 06/16/2019 Comments Unknown Sex and Gender Information Value Date Recorded Sex Assigned at Female 05/12/2018 9:12 AM CDT Legal Sex Female 5:22 PM CUSTOMER SUPPORT TECHNICIAN Gender Identity Female 05/12/2018 9:12 AM CDT Sexual Orientation Straight 05/12/2018 9: 12 AM CDT documented as of this encounter Plan of Treatment Upcoming Encounters Date Type Department Care Team (Late st Contact Info) Description 04/26/2025 8:00 AM CDT Telemedicine Division of Nephrology and Hypertension in [place], [place] [address] [place] [phone] Ángel Cleveland M.B.B.S. [address] [place] [phone] Sylvia Jackman, RDN, LD [address] [place] [phone] documented as of this encounter Visit Diagnoses Not on filedocumented in this encounter Care Teams Pilot Boat Operator Relationship Specialty Start Date End Date Elsewhere, Pcp PCP - General Family Medicine 07/16/18 documented as of this encounter
--- OUTSIDE RECORDS SUMMARY | 2025-04-11 10:49 | XMS_ITS | Encounter Summary ---
Author Organization [facility] Address [address] [place] [address] Care Team Providers Care Development Mechanic Name Role Phone Elsewhere, Pcp Primary Care Provider Unavailabl e Reason for Visit * Reason Onset Date Comments Pre-visit Intake 03/21/2025 * Appointment Request (Routine) - Authorized Specialty Diagnoses / Procedures Referred By Parul t Referred To Contact Otorhinolaryngology Referral ID Status Reason Start Date Expiration Date V isits Requested Visits Authorized [id number] Authorized 02/11/2025 05/14/2026 1 1 Encounter Details Date Type Department Care Team (Latest Contact Info) Description 03/21/2025 4:15 PM CDT Clinical Communication Virtual Review in [address] [phone] Pre-visit Intake Social History Tobacco Use Types Packs/Day Years Used Date Smoking Tobacco: Never Smokeless Tobacco: Never Tobacco Cessation:Counseling Given: Not Answered Alcohol Use Standard Drinks/Week Comments Yes 2 (1 standard drink = 0.6 oz pur e alcohol) 1-2 per week [facility] Utilities Answer Date Recorded In the [...] and Family Once a week 07/16/2019 Attends [employer] Services More than 4 times per year [...] Not hard at all 06/17/2019 [facility] of Occupat ional Health - Occupational Stress [...] your living situation today? I have a [facility] place to live 03/30/2024 Education Answer Date Recorded What is the highest level of school you have completed or the highest degree you have received? Master's degree (e.g., MA, MS, Viraj, MEd, NET TRAINER, SIMONE) 06/16/2019 Comments Unknown Sex and Gender Information Value Date Recorded Sex Assigned at Female 05/12/2018 9:12 AM CDT Legal Sex Female 5:22 PM CHIEF PAYROLL CLERK Gender Identity Female 05/12/2018 9:12 AM CDT Sexual Orientation Straight 05/12/2018 9: 12 AM CDT documented as of this encounter Plan of Treatment Upcoming Encounters Date Type Department Care Team (Late st Contact Info) Description 04/26/2025 8:00 AM CDT Telemedicine Division of Nephrology and Hypertension in [place], [place] [address] [place] [phone] Ángel Cleveland M.B.B.S. [address] [place] [phone] Sylvia Jackman, RDN, LD [address] [place] [phone] documented as of this encounter Visit Diagnoses Not on filedocumented in this encounter Care Teams Development Mechanic Relationship Specialty Start Date End Date Elsewhere, Pcp PCP - General Family Medicine 07/16/18 documented as of this encounter
--- OUTSIDE RECORDS SUMMARY | 2025-04-11 10:50 | XMS_ITS | Encounter Summary ---
Author Organization [facility] Address [address] [place] [address] Care Team Providers Care Resistance Welding Machine Operator Name Role Phone Elsewhere, Pcp Primary Care Provider Unavailabl e Reason for Visit * Reason Onset Date Comments Follow-up Orders 04/08/2025 Encounter Details Date Type Department Care Team (Latest Contact Info) Description 04/08/2025 Clinical Communication Division of Nephrology and Hypertension in [place], [place] [address] [place] [phone] Qian Marie M.D. [address] [place] [phone] Follow-up Orders Social History Tobacco Use Types Packs/Day Years Used Date Smoking Tobacco: Never Smokeless Tobacco: Never Alcohol Use Standard Drinks/Week Comments Yes 2 (1 standard drink = 0.6 oz pur e alcohol) 1-2 per week [facility] Utilities Answer Date Recorded In the past 12 months has [employer], gas, oil, or water [employer] threatened to shut off services in your home? No 04/08/2025 Social Connection and Isolat ion Panel [NHANES] Answer Date Recorded Frequency of Communication w ith Friends and Family Three times a week 07/16/2019 Frequency of Social Gatherin gs with Friends and Family Once a week 07/16/2019 Attends Congregation Services More than 4 times per year [...] Living Expenses Not hard at all 06/17/2019 [employer] [place] of Occupat ional Health - Occupational Stress [...] Master's degree (e.g., MA, MS, Viraj, MEd, KETTLE FIRER, SIMONE) 06/16/2019 Comments Unknown Sex and Gender Information Value Date Recorded Sex Assigned at Female 05/12/2018 9:12 AM CDT Legal Sex Female 5:22 PM .NET PROGRAMMER Gender Identity Female 05/12/2018 9:12 AM CDT Sexual Orientation Straight 05/12/2018 9: 12 AM CDT documented as of this encounter Miscellaneous Notes * Telephone Encounter - Foster Harris - 04/08/2025 2:12 PM CDT Orders have been placed for this patient to do locally. Send to:Fax to facility Name of facility: [facility] Fax or Date of Orders/Encounter: 04/08/25 Provider: Qian Marie Lab order(s) to be sent: Home Overnight Oximetry [[id number]] Imaging order(s)to be sent: Infusion order(s) to be sent: Additional information: Upon receiving, please call patient to schedule at their convenience. documented in this encounter Plan of Treatment Upcoming Encounters Date Type Department Care Team (Late st Contact Info) Description 04/26/2025 8:00 AM CDT Telemedicine Division of Nephrology and Hypertension in [place], [place] [address] [place] [phone] Ángel Cleveland M.B.B.S. [address] [place] [phone] Sylvia Jackman, RDN, LD [address] [place] [phone] documented as of this encounter Visit Diagnoses Not on filedocumented in this encounter Care Teams Resistance Welding Machine Operator Relationship Specialty Start Date End Date Elsewhere, Pcp PCP - General Family Medicine 07/16/18 documented as of this encounter
--- OUTSIDE RECORDS SUMMARY | 2025-04-11 10:50 | XMS_ITS | Encounter Summary ---
Author Organization [facility] Address [address] [place] [address] Care Team Providers Care Corporate Development Analyst Name Role Phone Elsewhere, Pcp Primary Care Provider Unavailabl e Reason for Referral * Outpatient (Routine) - Authorized Specialty Diagnoses / Procedures Referred By Parul chauhan Referred To Contact Nephrology and Hypertension Diagnoses Glomerulonephritis Immunoglobulin A (IgA Nephropathy) Ángel Cleveland M.B.B.S. [address] [place] [phone] Phone: tel: fax: Qian Marie M.D. 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 200 [place] [phone] Phone: tel: fax: [facility] Referral ID Status Reason Start Date Expiration Date V isits Requested Visits Authorized [id number] Authorized 04/08/2025 10/08/2026 1 1 Scheduling Instructions This appointment should ideally be scheduled AFTER the Prize Fighter Consults, but must at least be scheduled 48 hours after 24-hour urine collection is complete. Virtual visit is acceptable for this dietitian visit. 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 [address] [place] [address] Phone: tel: fax: [facility] Referral ID Status Reason Start Date Expiration Date Visits Re quested Visits Authorized [id number] Closed 03/24/2025 09/23/2026 1 1 Encounter Details Date Type Department Care Team (Latest Contact Info) Description 04/08/2025 1:00 PM CDT Comprehensive Visit Division of Nephrology and Hypertension in [place], [place] [address] [place] [phone] Qian Marie M.D. 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 No 04/08/2025 Social Connection and Isolat ion Panel [NHANES] Answer Date Recorded Frequency of Communication w ith Friends and Family Three times a week 07/16/2019 Frequency of Social Gatherin gs with Friends and Family Once a week 07/16/2019 Attends Yazidism Services More than 4 times per year [...] Living Expenses Not hard at all 06/17/2019 [facility] of Occupat ional Health - Occupational [...] Master's degree (e.g., MA, MS, Viraj, MEd, SPECIAL PROJECTS COORDINATOR, SIMONE) 06/16/2019 Comments Unknown Sex and Gender Information Value Date Recorded Sex Assigned at Female 05/12/2018 9:12 AM CDT Legal Sex Female 5:22 PM YARN PREPARATION SUPERVISOR Gender Identity Female 05/12/2018 9:12 AM CDT [...] 5. We will refer patient to a enologist/dietitian for additional recommendations regarding low protein diet [...] recommendations. This can be performed either in [place] or locally with her primary care provider. [...] blood pressure, patient remember referred to a pediatrician managing partner and perform any kidney biopsy and being told that she has IgA nephropathy, started CAROLYNE inhibitors with reported cough and then transitioned to ARBs and maintained on conservative medical management with RAAS inhibitors. Patient reported no additional immunosuppression treatment history. During lifetime patient reported 3 pregnancies with the 1st in 2006 noted to be complicated with preeclampsia lower leg swelling patient was induced and delivered at 37 weeks and after which patient was maintained on chlorthalidone. Duringadditionally patient antihypertensive medication managed accordingly. 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 Most recently noted patient noted to have worsening shortness of breath with exertion, MPO titer noted to be positive in 2017 and patient was started on oral prednisone [...] Total, S 1.0 Recent Labs 04/06/25 0526 [id number] ASSESSMENT / PLAN IgA nephropathy Proteinuria [...] additionally patient we will meet with a dietitian/enologist for additional management recommendations. Noted elevated hemoglobin [...] sleep apnea especially in the setting of her elevated hemoglobin levels. We can consider addition of an SGLT2 inhibitor if she remains proteinuric. We also referred her to a dietitian to cut down on her protein intake as it currently is high at 145 g per day. Weight reduction can also help alone her proteinuria. I plan to see her back in 3 months to assess the response to medication adjustments. documented in this encounter Plan of Treatment Upcoming Encounters Date Type Department Care Team (Late st Contact Info) Description 04/26/2025 8:00 AM CDT Telemedicine Division of Nephrology and Hypertension in [place], [place] [address] [place] [address] Ángel Cleveland M.B.B.S. [address] [place] [phone] Sylvia Jackman, VIRIDIANA, LD [address] [place] [phone] Scheduled Orders Name Type Priority Associated Diagnoses [...] Snoring documented in this encounter Care Teams Corporate Development Analyst Relationship Specialty Start Date End Date Elsewhere, Pcp PCP - General Family Medicine 07/16/18 documented as of this encounter
--- OUTSIDE RECORDS SUMMARY | 2025-04-11 10:50 | XMS_ITS | Encounter Summary ---
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 [address] [place] [address] Phone: tel: fax: [facility] Referral ID Status Reason Start Date Expiration Date Visits Re quested Visits Authorized [id number] Closed 03/24/2025 06/24/2026 1 1 Encounter Details Date Type Department Care Team (Latest Contact Info) Description 04/08/2025 7:51 AM CDT - 04/08/2025 9:09 AM CDT Hospital Encounter Department of Radiology, [facility], in [place], [place] [address] [place] [address] Qian Marie M.D. 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 I have a [facility] place to live 04/08/2025 Education Answer Date Recorded What is the highest level of school you have completed or the highest degree you have received? Master's degree (e.g., MA, MS, Viraj, MEd, PIPE CUTTER, SIMONE) 06/16/2019 Comments Unknown Sex and Gender Information Value Date Recorded Sex Assigned at Female 05/12/2018 9:12 AM CDT Legal Sex Female 5:22 PM DRAY DRIVER Gender Identity Female 05/12/2018 9:12 AM CDT [...] Telemedicine Division of Nephrology and Hypertension in [place], [place] [address] [place] [address] Ángel Cleveland M.B.B.S. [address] [place] [address] Sylvia Jackman, RDN, LD [address] [place] [address] documented as of this encounter Procedures Procedure [...] No renal artery stenosis. 2. No hydronephrosis. Qian Marie M.D. 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
--- OUTSIDE RECORDS SUMMARY | 2025-04-11 10:50 | XMS_ITS | Encounter Summary ---
Author Organization [facility] Address [address] [place] [address] Care Team Providers Care Bush Regenerator Name Role Phone Elsewhere, Pcp Primary Care Provider Unavailabl e Encounter Details Date Type Department Care Team (Latest Contact Info) Description 03/24/2025 2:30 PM CDT - 03/24/2025 11:59 PM CDT Hospital Encounter Department of Laboratory Medicine and Pathology, [facility] in [place], [place] [address] [place] [address] Qian Marie M.D. 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) Discharge Disposition: Home or Self Care Social History Tobacco Use Types Packs/Day Years Used Date Smoking Tobacco: Never Smokeless Tobacco: Never Alcohol Use Standard Drinks/Week Comments Yes 2 (1 standard drink = 0.6 oz pur e alcohol) 1-2 per week [facility] Utilities Answer Date Recorded In [...] and Family Once a week 07/16/2019 Attends Taoist Services More than 4 times per year [...] Living Expenses Not hard at all 06/17/2019 [facility] of Occupat ional [facility] - Occupational Stress Questionnaire Answer Date [...] your living situation today? I have a [facility] place to live 03/30/2024 Education Answer Date Recorded What is the highest level of school you have completed or the highest degree you have received? Master's degree (e.g., MA, MS, Viraj, MEd, COMMUNITY HEALTH NURSE SUPERVISOR, SIMONE) 06/16/2019 Comments Unknown Sex and Gender Information Value Date Recorded Sex Assigned at Female 05/12/2018 9:12 AM CDT Legal Sex Female 5:22 PM UNDERWRITING CLERK Gender Identity Female 05/12/2018 9:12 AM [...] Telemedicine Division of Nephrology and Hypertension in [place], [place] [address] [place] [address] Ángel Cleveland M.B.B.S. 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 LAB URINE ORDERABLES Final Resul t [facility] [address] [place] [address], [facility] [address] [place] [address] * (ABNORMAL) Protein, Total, 24 hour, Urine (04/06/2025 5:26 AM CDT) Total Protein, 24 HR, U 432(H) <229 mg/24 h 04/07/2025 2:13 PM CDT DTL Collection Duration 24 h 04/07/2025 1:31 PM CDT DTL Urine Volume 1200 mL 04/07/2025 1:31 PM CDT DTL Urine (Urine, 24 Hours) 04/06/2025 5:26 AM CDT 04/07/2025 1:31 PM CDT Qian Marie M.D. LAB URINE ORDERABLES Final Resul t [facility] [address] [place] [address], [facility] [address] [place] [address] * (ABNORMAL) Creatinine Clearance, Serum and 24 hour Urine (04/05/2025 8:49 AM CDT) Creatinine 1.17(H) 0.59 - 1.04 mg/dL 04/07/2025 2:41 PM CDT DTL Estimated GFR (eGFR) 58(L) >=60 mL/min/BSA 04/07/2025 2:41 PM CDT DTL Comment: Estimated GFR calculated using the 2020 CKD_EPI creatinine equation. Creatinine, U 137 mg/dL 04/07/2025 2:13 PM CDT DTL Collection Duration (h) 24 h 04/07/2025 1:31 PM CDT DTL Volume (mL) 1200 mL 04/07/2025 1:31 PM CDT DTL Creatinine Clearance 83 67 - 146 mL/min/BSA 04/07/2025 2:41 PM CDT DTL Urine (Urine, 24 Hours) 04/05/2025 8:49 AM CDT 04/07/2025 1:31 PM CDT Narrative [facility] - 04/07/2025 2:41 PM CDT Specimen Information: Specimen ID: [id number] Specimen Type: Urine Specimen Collection Start Date: 04/06/2025 5:26 AM Specimen Received Date: 04/07/2025 1:31 PM Specimen ID: [id number] Specimen Type: Blood Specimen Collection Start Date: 04/05/2025 8:49 AM Specimen Received Date: 04/07/2025 1:42 PM Qian Marie M.D. 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
--- OUTSIDE RECORDS SUMMARY | 2025-04-11 10:50 | XMS_ITS | Encounter Summary ---
Author Organization [facility] Address [address] [place] [address] Care Team Providers Care Online Marketer Name Role Phone Elsewhere, Pcp Primary Care Provider Unavailabl e Encounter Details Date Type Department Care Team (Latest Contact Info) Description 04/08/2025 9:10 AM CDT - 04/08/2025 11:59 PM CDT Hospital Encounter Department of Laboratory Medicine and Pathology, [facility] in [place], [place] [address] [place] [address] Qian Marie M.D. 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 I have a [facility] place to live 04/08/2025 Education Answer Date Recorded What is the highest level of school you have completed or the highest degree you have received? Master's degree (e.g., MA, MS, Viraj, MEd, MANAGER UNDERWRITING, SIMONE) 06/16/2019 Comments Unknown Sex and Gender Information Value Date Recorded Sex Assigned at Female 05/12/2018 9:12 AM CDT Legal Sex Female 5:22 PM MANAGER POWER Gender Identity Female 05/12/2018 9:12 AM CDT Sexual Orientation Straight 05/12/2018 9: 12 AM CDT documented as of this encounter Medications at Time of Discharge candesartan (Atacand) 4 mg tabletIndications:Gl omerulonephritis Immunoglobulin A (IgA Nephropathy) Take 2 tablets (8 mg total) by mouth daily. 180 tablet 3 04/08/2025 cetirizine (ZyrTEC) 10 mg tablet Take 10 mg by mouth daily. fluticasone furoate (Arnuity Ellipta) 100 mcg/actuation diskus inhaler Inhale 1 puff daily. 30 each 11 03/01/2025 norethindrone (NORLYDA) 0.35 mg tablet Take 1 tablet by mouth daily. documented as of this encounter Plan of Treatment Upcoming Encounters Date Type Department Care Team (Late st Contact Info) Description 04/26/2025 8:00 AM CDT Telemedicine Division of Nephrology and Hypertension in [place], [place] [address] [place] [phone] Ángel Cleveland M.B.B.S. 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) Once for 1 Occurrences starting 04/08/2025 until 04/08/2025 1,25-Dihydroxyvitam in D Lab Routine 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) Once for 1 Occurrences starting 04/08/2025 until 04/08/2025 documented as of this encounter Procedures Procedure Name Priority Date/Time Associated Diagnosis Comments PHOSPHORUS (INORGANIC), S Routine 04/08/2025 9:52 AM CDT 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) PARATHYROID HORMONE (PTH), S Routine 04/08/2025 9:52 AM CDT 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) COMPREHENSIVE METABOLIC PANEL, S/P Routine 04/08/2025 9:52 AM CDT 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) documented in this encounter Results * (ABNORMAL) Comprehensive Metabolic Panel (04/08/2025 9:52 AM CDT) Pathologist [facility] Potassium, S 4.5 3.6 - 5.2 mmol/L [...] BLOOD ADD-ON Final Result Performing Organization Address City/[facility]/ZIP Co de Phone Number [facility] [address] [place], [place] [phone] [place] [address] * Phosphorus Inorganic (04/08/2025 9:52 AM CDT) Phosphorus (Inorganic), S 3.0 2.5 - 4.5 mg/dL 04/08/2025 10:55 AM CDT DTL Blood (Blood, Venous) 04/08/2025 9:52 AM CDT 04/08/2025 10:25 AM CDT Qian Marie M.D. LAB BLOOD ADD-ON Final Result Performing Organization Address City/[facility]/ZIP Co de Phone Number [facility] [address] [place] [address], [facility] [address] [place] [phone] * Parathyroid Hormone (PTH) (04/08/2025 9:52 AM CDT) Parathyroid Hormone (PTH), S 56 15 - 65 pg/mL 04/08/2025 10:55 AM CDT DTL Blood (Blood, Venous) 04/08/2025 9:52 AM CDT 04/08/2025 10:25 AM CDT Qian Marie M.D. 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
--- OUTSIDE RECORDS SUMMARY | 2025-04-11 10:50 | XMS_ITS | Encounter Summary ---
Author Organization [facility] Address [address] [place] [address] Care Team Providers Care Grinder Set Up Operator Gear Tool Name Role Phone Elsewhere, Pcp Primary Care Provider Unavailabl e Encounter Details Date Type Department Care Team (Latest Contact Info) Description 03/24/2025 6:40 PM CDT Ancillary Procedure Department of Otorhinolaryngology Social History Tobacco Use Types Packs/Day Years Used Date Smoking Tobacco: Never Smokeless Tobacco: Never Alcohol Use Standard Drinks/Week Comments Yes 2 (1 standard drink = 0.6 oz pur e alcohol) 1-2 per week [facility] Utilities Answer Date Recorded In the [...] and Family Once a week 07/16/2019 Attends Gnosticist Services More than 4 times per year [...] Living Expenses Not hard at all 06/17/2019 [facility] [place] of Occupat ional Health - Occupational Stress [...] your living situation today? I have a [facility] place to live 03/30/2024 Education Answer Date Recorded What is the highest level of school you have completed or the highest degree you have received? Master's degree (e.g., MA, MS, Viraj, MEd, ENVIRONMENTAL HEALTH SANITARIAN, SIMONE) 06/16/2019 Comments Unknown Sex and Gender Information Value Date Recorded Sex Assigned at Female 05/12/2018 9:12 AM CDT Legal Sex Female 5:22 PM SYSTEMS MGR Gender Identity Female 05/12/2018 9:12 AM CDT Sexual Orientation Straight 05/12/2018 9: 12 AM CDT documented as of this encounter Plan of Treatment Upcoming Encounters Date Type Department Care Team (Late st Contact Info) Description 04/26/2025 8:00 AM CDT Telemedicine Division of Nephrology and Hypertension in [place], [place] [address] [place] [address] Ángel Cleveland M.B.B.S. [address] [place] [address] Sylvia Jackman, RDN, LD [address] [place] [address] documented as of this encounter Procedures Procedure Name Priority Date/Time Associated Diagnosis Comments OTORHINOLARYNGOLOGY IMAGE EXAM Routine 03/24/2025 11:50 AM CDT documented in this encounter Results * Laryngopharyngoscopy-Otorhinolaryngology Image Exam (03/24/2025 11:50 AM CDT) Narrative [facility] - 03/24/2025 11:50 AM CDT This order has been created and auto-finalized to support the import of images acquired without order. The clinical documentation to support these images can be found on the encounter that produced images. us Provider Not In System IMG NON RAD IMAGING PROCE DURES Final Result [facility] NA documented in this encounter Visit Diagnoses Not on filedocumented in this encounter Care Teams Grinder Set Up Operator Gear Tool Relationship Specialty Start Date End Date Elsewhere, Pcp PCP - General Family Medicine 07/16/18 documented as of this encounter
--- OUTSIDE RECORDS SUMMARY | 2025-04-11 10:50 | XMS_ITS | Clinical Summary ---
Author Organization [facility] Address [facility] [place] [address] Care Team Providers Care Automotive Manufacturer Name Role Phone Linette Ambrocio Cortez Primary Care Provider + Allergies Active Allergy Reactions Criticality Noted Date Comments Erythromycin Rash 12/17/2005 Sulfa (Sulfonamide Antibiotics) Itching 06/01 Midazolam Hypotension 12/17/2005 Medications Cetirizine (ZYRTEC) 10 mg cap Take by mouth. 0 08/31/2014 Active norethindrone, Contraceptive, (MICRONOR, 28,) 0.35 mg tablet Take 1 Tablet by mouth. Active fluticasone propionate (FLOVENT) 110 mcg/Actuation inhaler Inhale 1 Puff by mouth. 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, with unspecified pathological lesion in kidney 02/21/2006 Ventricular septal defect 02/21/2006 Need for desensitization to allergens 02/21/2006 Immunizations Immunization Administration Dates Next Due Td, Preservative Free (age >= 7 Years) 7 Tdap 07/05/2008 Family History Medical History Relation Name Comments Psychiatric illness Father Depressi on/anxiety Diabetes Maternal Grandmother type II Heart Disease Maternal Grandmother CHF Other Mother Fibroids Thyroid Disease Mother Diabetes Paternal Grandfather type II Relation Name Status Comments Brother 1 Alive Brother 2 Alive Father Alive Maternal Grandfather Maternal Grandmother Alive Mother Alive Paternal Grandfather Alive Paternal Grandmother Alive Social History Tobacco Use Types Packs/Day Years Used Date Smoking Tobacco: Never Smokeless Tobacco: Never Tobacco Cessation:Counseling Given: Yes Alcohol Use Standard Drinks/Week Comments Yes 0 (1 standard drink = 0.6 oz pur e alcohol) occasional Comments No Sex and Gender Information Value Date Recorded Sex Assigned at Not on file Legal Sex Female 7:08 AM COKE DRAWER Gender Identity Not on file Sexual Orientation Not on file Obstetrics History Para Term AB IAB SAB Ectopic Multiple Livin g Live Births 1 1 1 0 0 0 0 0 0 1 1 Date Outcome GA Total Labor Labor//3rd Weight Sex Type Anes PTL Alanna A1 A5 Name Clin 2006 Term 37w 0d 4.17 kg (9 lb 3 oz) F Vag Living Dmitry Comments:Induced Last Filed Vital Signs Vital Sign Reading Time Taken Comments Blood Pressure 125/85 12/10/2022 3:33 PM COKE DRAWER tow er Pulse 72 12/10/2022 3:33 PM COKE DRAWER Temperature 36.5 C (97.7 F) 10/02/2010 9:27 AM CDT Respiratory Rate 16 09/14/2010 2:34 PM CDT Oxygen Saturation 97% 12/10/2022 3:33 PM COKE DRAWER Inhaled Oxygen Concentration - - Weight 98 kg (216 lb) 12/10/2022 3:33 PM COKE DRAWER Height 171.5 cm (5' 7.5) 01/02/2010 9:02 AM COKE DRAWER Body Mass Index - - Plan of Treatment Health Maintenance Due Date Last Done Comments Depression screening for age 12+ 1991 HIV for age 15-65 1994 BMI (ht and wt on same day) for age 18+ 1997 Hepatitis C screening for ag e 18-79 1997 Pneumococcal series for age 6-49 (1 of 2 - PCV) 1998 Tetanus booster 07/05/2018 07/05/2008, 12/01/1996 Colonoscopy through age 75 01/31/2024 Lipids for age 45-75 01/31/2024 07/05/2008, 01/24/20 05 Mammogram for age 45-75 01/31/2024 COVID-19 vaccine series (2023- season) 2024 10/19/2021, 2021, 01/02/2021 Influenza Vaccine (Season Ended) 2025 Pap test for age 21-65 06/20/2026 , 06/20/2023, 11/05/2018, Additional history exists Tdap Completed 07/05/2008 Procedures Procedure Name Priority Date/Time Associated Diagnosis Comments HPV HIGH RISK Routine 06/20/2023 4:30 PM CDT LIPID PANEL Routine 07/05/2008 11:21 AM CDT Routine General Medical Exam from Last 3 Months or Most Recently Relevant to Health Maintenance Results * HPV HIGH RISK (06/20/2023 4:30 PM CDT) TYPE 16 Negative Negative 06/26/2023 1:50 PM CDT [facility] TYPE 18 Negative Negative 06/26/2023 1:50 PM CDT [facility] OTHER HIGH RISK TYPES Negative Negative 06/26/2023 1:50 PM CDT [facility] Other (Cervical) 06/20/2023 4:30 PM CDT 06/25/2023 11:53 AM CDT Narrative [facility] - 06/26/2023 1:50 PM CDT HPV types 16, 18, 31, 33, 35, 39, 45, 51, 52, 56, 58, 59, 66 and 68 DNA were undetectable or below the pre-set threshold. Methodology: Rohini Cristiano 4800 HPV Test us Maame Palacios NP MICROBIOLOGY Final Res ult [facility] [address] [place] [address], * LIPID PANEL (07/05/2008 11:21 AM CDT) CHOLESTEROL,TOTAL 131 110 - 199 mg/dL [facility] TRIGLYCERIDES 101 40 - 149 mg/dL [facility] HDL CHOLESTEROL 43 >40 mg/dL [facility] CHOL/HDL RATIO 3.05 <4.51 [facility] LDL CHOLESTEROL 68 <131 mg/dL [facility] PATIENT STATUS Fasting [facility] Blood specimen (specimen) BLOOD SPECIMEN / Unknown 07/05/2008 11:21 AM CDT 07/05/2008 11:15 AM CDT Ambrocio Sue DO CHEMISTRY Final Re sult [facility] [place]NAL ZIP [id number] [address] from Last 3 Months or Most Recently Relevant to Health Maintenance Care Teams Automotive Manufacturer Relationship Specialty Start Date End Date Ambrocio Sue DO [address] [place] [id number] PCP - General 12/17/05
--- OUTSIDE RECORDS SUMMARY | 2025-04-11 10:50 | XMS_ITS | Clinical Summary ---
Author Organization [facility] Address [address] [place] [address] Care Team Providers Care Law Enforcement Instructor Name Role Phone Elsewhere, Pcp Primary Care Provider Unavailabl e Source Comments Patient records contain information from all sites at [facility]. For routine questions regarding patient records, call [phone] during business hours, M-F 8:00 AM - 5:00 PM Central Time. Record requests for emergency care only can be directed to [phone] at any time.[facility] Allergies Active Allergy Reactions Criticality Noted Date Comments Erythromycin Rash Low 12/17/2005 Midazolam Hypotension (Reselec t Reaction) 05/05/2013 Sulfa (Sulfonamide Antibiotics) Itching 05/05/2013 Medications * This document contains information received from the source organization and may not represent a complete record from that organization. norethindrone (NORLYDA) 0.35 mg tablet Take 1 tablet by mouth daily. Active cetirizine (ZyrTEC) 10 mg tablet Take 10 mg by mouth daily. Active fluticasone furoate (Arnuity Ellipta) 100 mcg/actuation diskus inhaler Inhale 1 puff daily. 30 each 11 025 2025 Active candesartan (Atacand) 4 mg tabletIndications :Glomerulonephrit is Immunoglobulin A (IgA Nephropathy) Take 2 tablets (8 mg total) by mouth daily. 180 tablet 3 Active hydroCHLOROthiazi de (MICROZIDE) 12.5 mg capsule Take 12.5 mg by mouth as directed. Every other day 2024 Discontinued candesartan (ATACAND) 4 mg tablet Take 1 tablet by mouth daily. 2024 Discontinued(R eorder) fluticasone propionate (Flovent HFA) 110 mcg/actuation inhaler Inhale 2 puffs 2 (two) times a day. Rinse mouth with water after use to reduce aftertaste and incidence of candidiasis. Do not swallow. 12 g 11 025 2024 Discontinued amoxicillin-pot clavulanate (Augmentin) 875-125 mg per tablet Take 1 tablet by mouth 2 (two) times a day. 025 2024 Discontinued cholecalciferol (Vitamin D3) 50 mcg (2,000 Unit) capsule Take 2,000 Units by mouth daily. 2024 Discontinued predniSONE (Deltasone) 20 mg tablet Take 20 mg by mouth daily. 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 Date Type Department Care Team Description 5 1:00 PM CDT Comprehensive Visit Division of Nephrology and Hypertension in [place], [place] [address] [place] [address] Qian Marie M.D. 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) Discharge Disposition: Home or Self Care 5 7:51 AM CDT - 5 9:09 AM CDT Hospital Encounter Department of Radiology, [facility] in [place], [place] [address] [place] [address] Qian Marie M.D. 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) Discharge Disposition: Home or Self Care 5 Clinical Communication Division of Nephrology and Hypertension in [place], [place] [address] [place] [address] Qian Marie M.D. Follow-up Orders 5 6:40 PM CDT Ancillary Procedure Department of Otorhinolaryngology 5 2:30 PM CDT - 5 11:59 PM CDT Hospital Encounter Department of Laboratory Medicine and Pathology, [facility] in [place], [place] [address] [place] [address] Qian Marie M.D. 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) Discharge Disposition: Home or Self Care 5 2:00 PM CDT Comprehensive Visit Division of Pulmonary Medicine in [place], [place] [address] [place] [address] Atif Ambrose M.D. 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) (Primary Dx); Stenosis Subglottic 5 9:18 AM CDT - 5 2:29 PM CDT Hospital Encounter Department of Laboratory Medicine and Pathology, [facility] in [place], [place] [address] [place] [address] Aleisha Sales APRN, C.N.P. 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); Stenosis Subglottic Discharge Disposition: Home or Self Care 5 9:18 AM CDT - 5 2:29 PM CDT Hospital Encounter Department of Laboratory Medicine and Pathology, [facility], in [place], [place] [address] [place] [address] Aleisha Sales APRN, C.N.P. 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); Stenosis Subglottic Discharge Disposition: Home or Self Care 5 Orders Only Division of Nephrology and Hypertension in [place], [place] [address] [place] [phone] Qian Marie M.D. 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) (Primary Dx) 5 4:15 PM CDT Clinical Communication Virtual Review in [place], [place] [address] [place] [address] Pre-visit Intake 5 Orders Only Virtual Review in [place], [place] [address] [place] [address] Beatris Mendiola 5 Refill Department of Otorhinolaryngology in [place], [place] [address] [place] [phone] Aleisha Sales APRN, C.N.P. Med Refill 5 Clinical Communication Division of Pulmonary Medicine in [place], [place] [address] [place] [phone] Atif Ambrose M.D. Appt Request 5 Orders Only Department of Otorhinolaryngology in [place], [place] [address] [place] [phone] Aleisha Sales APRN, C.N.P. 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) (Primary Dx); Stenosis Subglottic 5 Orders Only Department of Otorhinolaryngology in [place], [place] [address] [place] [phone] Aleisha Sales APRN, C.N.P. 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) (Primary Dx); Stenosis Subglottic 5 Clinical Communication Department of Otorhinolaryngology in [place], [place] [address] [place] [address] Aleisha Sales APRN, C.N.P. 5 Orders Only Department of Otorhinolaryngology in [place], [place] [address] [place] [address] Aleisha Sales APRN, C.N.P. 5 Orders Only Department of Otorhinolaryngology in [place], [place] [address] [place] [address] Aleisha Sales APRN, C.N.P. 5 6:15 PM RECORDS MANAGEMENT DIRECTOR Ancillary Procedure Department of Otorhinolaryngology 5 10:45 AM RECORDS MANAGEMENT DIRECTOR Office Visit Department of Otorhinolaryngology in [place], [place] [address] [place] [address] Aleisha Sales APRN, C.N.P. Stenosis Subglottic (Primary Dx) from Last 3 Months Family History Medical History Relation Name Comments Anxiety disorder Brother 1 ceasar muhle Hyperlipidemia Brother 1 ceasar muhle Sleep apnea Brother 1 ceasar muhle Anxiety disorder Brother 2 bryant muhle Anxiety disorder Father lucas muhle Depression Father lucas muhle Diabetes Father lucas muhle Hypertension Father lucas muhle Stroke Maternal Grandmother erika riedman Diabetes Paternal Grandfather migel muhle Parkinsonism Paternal Grandfather migel muhle Anxiety disorder Paternal Grandmother erika muhle Depression Paternal Grandmother eirka muhle Relation Name Status Comments Brother 1 ceasar muhle Brother 2 bryant muhle Father lucas muhle Maternal Grandmother erika riedman Paternal Grandfather migel muhle Paternal Grandmother erika muhle Social History Tobacco Use Types Packs/Day Years Used Date Smoking Tobacco: Never Smokeless Tobacco: Never Tobacco Cessation:Counseling Given: Not Answered Alcohol Use Standard Drinks/Week Comments Yes 2 (1 standard drink = 0.6 oz pur e alcohol) 1-2 per week [facility] Utilities Answer Date Recorded In [...] and Family Once a week 07/16/2019 Attends Jewish Services More than 4 times per year [...] Living Expenses Not hard at all 06/17/2019 [facility] of Occupat ional Health - Occupational Stress [...] your living situation today? I have a [facility] place to live 04/08/2025 Education Answer Date Recorded What is the highest level of school you have completed or the highest degree you have received? Master's degree (e.g., MA, MS, Viraj, MEd, RADIO TELEVISION ANNOUNCER, SIMONE) 06/16/2019 Comments Unknown Sex and Gender Information Value Date Recorded Sex Assigned at Female 05/12/2018 9:12 AM CDT Legal Sex Female 5:22 PM RECORDS MANAGEMENT DIRECTOR Gender Identity Female 05/12/2018 9:12 AM CDT Sexual Orientation Straight 05/12/2018 9: 12 AM CDT Last Filed Vital Signs Vital Sign Reading Time Taken Comments Blood Pressure 114/79 04/08/2025 12:52 PM CDT Pulse 87 04/08/2025 12:52 PM CDT Temperature 36.9 C (98.4 F) 04/08/2025 12:52 PM CDT Respiratory Rate 17 06/19/2018 2:15 PM CDT Oxygen Saturation 98% 03/24/2025 1:53 PM CDT Inhaled Oxygen Concentration - - Weight 91.7 kg (202 lb 4.4 oz) 04/08/2025 12:52 PM CDT Height 170.1 cm (5' 6.97) 04/08/2025 12:52 PM C DT Body Mass Index 31.71 04/08/2025 12:52 PM CDT Plan of Treatment Upcoming Encounters Date Type Department Care Team (Late st Contact Info) Description 04/26/2025 8:00 AM CDT Telemedicine Division of Nephrology and Hypertension in [place], [place] [address] [place] [address] Ángel Cleveland M.B.B.S. [address] [place] [address] Sylvia Jackman, RDN, LD [address] [place] [address] Health Maintenance Due Date Last Done Comments CT Colonography 1979 Cologuard 1979 Colonoscopy 1979 Colorectal Cancer Surveillance 1979 HIV Screening 1979 Hepatitis C Screening 1979 Lipid (Cholesterol) Screening 1979 Mammogram 1979 Hepatitis B Vaccines (1 of 3 - 19+ 3-dose series) 1998 COVID-19 Vaccine ( season) 2024 12/15/2022, 10/19/2021, 2021, Additional history exists Influenza Vaccine (#1) 2024 , 11/01/2021, 10/03/2020, Additional history exists Depression Screening (Annual PHQ-2) 12/01/2024 DTaP,Tdap,and Td Vaccines (4 - Td or Tdap) 09/04/2025 09/04/2015, 07/05/2008, 12/01/1996 Creatinine Level (Kidney Function Test) 04/08/2026 04/08/2025, 04/05/2025, 03/24/2025, Additional history exists Potassium Level 04/08/2026 04/08/2025, 03/02, 10/18/2021, Additional history exists Sodium Level 04/08/2026 04/08/2025, 03/02, 10/18/2021, Additional history exists Cervical/Vaginal Cancer Screening 06/20/2026 06/20/2023, 11/05/2018 Fasting Glucose for Diabetes Screening 04/08/2028 04/08/2025, 03/24/2025, 10/18/2021, Additional history exists IPV Vaccines Aged Out No longer eligi ble based on patient's age to complete this topic Pneumococcal vaccine (0-49 years) Aged Out No longer eligible based on patient's age to complete this topic Procedures Procedure Name Priority Date/Time Associated Diagnosis Comments COMPREHENSIVE METABOLIC PANEL, S/P Routine 04/08/2025 9:52 AM CDT 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) PHOSPHORUS (INORGANIC), S Routine 04/08/2025 9:52 AM CDT 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) PARATHYROID HORMONE (PTH), S Routine 04/08/2025 9:52 AM CDT 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) US KIDNEYS WITH RENAL ARTERY DOPPLER RAD - Routine (most inpatients and all outpatients) 04/08/2025 9:25 AM CDT 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) SODIUM, U Routine 04/06/2025 5:26 AM CDT 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) PROTEIN, TOTAL, 24 HR, U Routine 025 5:26 AM CDT 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) CREATININE CLEARANCE, S AND 24H U Routine 04/05/2025 8:49 AM CDT 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) PULMONARY FUNCTION TESTS Routine 025 12:38 PM CDT 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) Stenosis Subglottic OTORHINOLARYNGOLOGY IMAGE EXAM Routine 03/24/2025 11:50 AM CDT DIPSTICK, U Routine 03/24/2025 10:00 AM CDT OSMOLALITY, U Routine 03/24/2025 10:00 AM CDT PH, U Routine 03/24/2025 10:00 AM CDT MICROSCOPIC AUTOMATED Routine 03/24/2025 10:00 AM CDT URINALYSIS WITH MICROSCOPIC Routine 03/24/2025 10:00 AM CDT 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) Stenosis Subglottic CYTOPLASMIC NEUTROPHIL ABS, S Routine 03/24/2025 9:27 AM CDT URIC ACID, S/P Routine 03/24/2025 9:27 AM [...] Polyangiitis Without Renal Involvement (HCC) Stenosis Subglottic CBC WITH DIFFERENTIAL, B Routine 025 9:27 AM CDT 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) Stenosis Subglottic ANCA VASCULITIS PANEL, S Routine 025 9:27 AM CDT 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) Stenosis Subglottic OTORHINOLARYNGOLOGY IMAGE EXAM Routine 01/27/2025 11:29 AM RECORDS MANAGEMENT DIRECTOR from Last 3 Months Results * Phosphorus Inorganic (04/08/2025 9:52 AM CDT) Only the most recent of2 resultswithin the time period is included. Phosphorus (Inorganic), S 3.0 2.5 - 4.5 mg/dL 04/08/2025 10:55 AM CDT DTL Blood (Blood, Venous) 04/08/2025 9:52 AM CDT 04/08/2025 10:25 AM CDT Qian Marie M.D. LAB BLOOD ADD-ON Final Result Performing Organization Address City/[facility]/ZIP Co de Phone Number [facility] [address] [place] [address], [facility] [address] [place] [address] * Parathyroid Hormone (PTH) (04/08/2025 9:52 AM CDT) Parathyroid Hormone (PTH), S 56 15 - 65 pg/mL 04/08/2025 10:55 AM CDT DTL Blood (Blood, Venous) 04/08/2025 9:52 AM CDT 04/08/2025 10:25 AM CDT Qian Marie M.D. LAB BLOOD ADD-ON Final Result Performing Organization Address [facility] de Phone Number [facility] [address] [place] [address], [place] [address] * (ABNORMAL) Comprehensive Metabolic Panel (04/08/2025 9:52 AM CDT) Only the most recent of2 resultswithin the time period is included. Potassium, S 4.5 3.6 - 5.2 mmol/L [...] 9:52 AM CDT 04/08/2025 10:25 AM CDT us Qian Marie M.D. LAB BLOOD ADD-ON Final Result [facility] [address] [place] [address], [facility] [address] [place] [address] * US Kidneys with Renal Artery Doppler [...] Bladder: Normal where seen. Procedure Note Millicent oMore M.D. - 04/08/2025 EXAM: US KIDNEYS WITH [...] 2. No hydronephrosis. us Qian Marie M.D. IMG US PROCEDURES Final Result * Sodium, 24 hour, Urine (04/06/2025 5:26 AM CDT) Sodium, 24 HR, U 80 22 - 328 mmol/24 h 04/07/2025 2:13 PM CDT DTL Collection Duration 24 h 04/07/2025 1:31 PM CDT DTL Urine Volume 1200 mL 04/07/2025 1:31 PM CDT DTL Urine (Urine, 24 Hours) 04/06/2025 5:26 AM CDT 04/07/2025 1:31 PM CDT us Qian Marie M.D. LAB URINE ORDERABLES Final Resul t [facility] [address] [place] [address], [facility] [address] [place] [address] * (ABNORMAL) Protein, Total, 24 hour, Urine (04/06/2025 5:26 AM CDT) Total Protein, 24 HR, U 432(H) <229 mg/24 h 04/07/2025 2:13 PM CDT DTL Collection Duration 24 h 04/07/2025 1:31 PM CDT DTL Urine Volume 1200 mL 04/07/2025 1:31 PM CDT DTL Urine (Urine, 24 Hours) 04/06/2025 5:26 AM CDT 04/07/2025 1:31 PM CDT us Qian Marie M.D. LAB URINE ORDERABLES Final Resul t [facility] [address] [place] [address], [facility] [address] [place] [address] * (ABNORMAL) Creatinine Clearance, Serum and 24 [...] AM CDT 04/07/2025 1:31 PM CDT Narrative [facility] - 04/07/2025 2:41 PM CDT Specimen Information: Specimen ID: [id number] Specimen Type: Urine Specimen Collection Start Date: 04/06/2025 5:26 AM Specimen Received Date: 04/07/2025 1:31 PM Specimen ID: [id number] Specimen Type: Blood Specimen Collection Start Date: 04/05/2025 8:49 AM Specimen Received Date: 04/07/2025 1:42 PM us Qian Marie M.D. LAB URINE ORDERABLES Final Resul t [facility] [address] [place] [address], [place] [facility] [address] [place] [address] * Pulmonary Function Tests (03/24/2025 12:38 PM CDT) FVC 3.95 L 03/24/2025 1:29 PM CDT [facility]1 3.08 L 03/24/2025 1:29 PM CDT [facility] FEV1/FVC 78.05 % 03/24/2025 1:29 PM CDT [facility] CUU94-49% 2.78 L/s 03/24/2025 1:29 PM CDT [facility] PEF PRE 5.84 L/s 03/24/2025 1:29 PM CDT [facility] PIF PRE 4.48 L/s 03/24/2025 1:29 PM CDT [facility] Pre FEF50/FIF50 121.20 % 03/24/2025 1:29 PM CDT [facility] FET PRE 11.48 sec 03/24/2025 1:29 PM CDT [facility] MVV 82.61 L/min 03/24/2025 1:29 PM CDT [facility] DLCO 25.04 ml/(min*mm Hg) 03/24/2025 1:29 PM CDT [facility] DLCOc 23.58 ml/(min*mm Hg) 03/24/2025 1:29 PM CDT [facility] HB 15.60 g(Hb)/dL 03/24/2025 1:29 PM CDT [facility] SUITE Pre % Pred [place] SINGLE BREATH 5.32 L 03/24/2025 1:29 PM CDT [facility] PulseRest 85.00 1/min 03/24/2025 1:29 PM CDT [facility] T1WtbNgtk 98.00 % 03/24/2025 1:29 PM CDT [facility] PulseExer 109.00 1/min 03/24/2025 1:29 PM CDT [facility] EXER TIME 3.00 min 03/24/2025 1:29 PM CDT [facility] STEP HEIGHT PRE 9.00 Inch 03/24/2025 1:29 PM CDT [facility] 03/24/2025 12:3 8 PM CDT Impressions [facility] - 03/24/2025 1:29 PM CDT Abnormal. Maximum voluntary ventilation (MVV) is reduced relative to FEV1, suggesting neuromuscular weakness, poor performance or central airway obstruction. Spirometry and diffusion capacity are otherwise normal. Pulse oximetry is normal at rest and with exercise. Compared to 10/18/2021, there has been no significant change. Narrative Procedure Note Kishan Carrillo M.B.BMatheusS. - 03/24/2025 IMPRESSION: Abnormal. Maximum voluntary ventilation (MVV) is reduced relative to FEV1,suggesting neuromuscular weakness, poor performance or central airwayobstruction. Spirometry and diffusion capacity are otherwise normal. Pulseoximetry is normal at rest and with exercise. Compared to 10/18/2021, there has been no significantchange. us Aleisha Sales APRN, C.N.P. PFT ORDERABLES Final Result [facility] NA * Laryngopharyngoscopy-Otorhinolaryngology Image Exam (03/24/2025 11:50 AM CDT) Only the most recent of2 resultswithin the time period is included. Narrative [facility] - 03/24/2025 11:50 AM CDT This order has been created and auto-finalized to support the import of images acquired without order. The clinical documentation to support these images can be found on the encounter that produced images. us Provider Not In System IMG NON RAD IMAGING PROCE DURES Final Result [facility] NA * (ABNORMAL) Dipstick, Urine (03/24/2025 10:00 AM CDT) Pathologist [facility] Hemoglobin, QL, U Trace(A) Negative 03/24/2025 10:27 [...] ORDER PRUDENCE Final Result Performing Organization Address City/[facility] [place] [address] * Microscopic Automated (03/24/2025 10:00 AM CDT) [facility] Microscopy Normal 03/24/2025 10:27 AM CDT DTL RBC None Seen <3 /hpf 03/24/2025 10:27 AM CDT DTL WBC None Seen /hpf 03/24/2025 10:27 AM CDT DTL Comment: ----REFERENCE VALUE---- <4 (Males) <11 (Females) Urine 03/24/2025 10:0 0 AM CDT 03/24/2025 10:00 AM CDT Aleisha Sales APRN, C.N.P. LAB URINE ORDER PRUDENCE Final Result Performing Organization Address City/[facility]/[place] [address] * pH, Urine (03/24/2025 10:00 AM CDT) Pathologist [facility] pH, U 5.6 4.5 - 8.0 03/24/2025 10: 45 AM CDT DTL Urine 03/24/2025 10:0 0 AM CDT 03/24/2025 10:00 AM CDT Aleisha Sales APRN, C.N.P. LAB URINE ORDER PRUDENCE Final Result Performing Organization Address [facility] Co de Phone Number [facility] [address] [place] [address] * Osmolality, Urine (03/24/2025 10:00 AM CDT) Pathologist [facility] Osmolality, U 228 150 - 1150 mOsm/kg 03/24/2025 10:45 AM CDT DT Urine 03/24/2025 10:0 0 AM CDT 03/24/2025 10:00 AM CDT Aleisha Sales APRN, C.N.P. LAB URINE ORDER PRUDENCE Final Result Performing Organization Address [facility] de Phone Number [facility] [address] [place] [address] * (ABNORMAL) Urinalysis, with Microscopic: Urine, Midstream [...] 10:00 AM CDT 03/24/2025 10:00 AM CDT Aleisha Sales APRN, C.N.P. LAB URINE ORDER PRUDENCE Final Result [facility] [address] [place] [address], [facility] DTL [facility] [address] [place] [address] * (ABNORMAL) ANCA (Antineutrophil Cytoplasmic Antibodies) Vasculitis Panel (03/24/2025 9:27 AM CDT) Pathologist [facility] Myeloperoxidase Ab, S 7.7(H) <0.4 (Negative ) U 03/24/2025 1:38 PM CDT [facility] Comment:Interpretation: Posi tive (>=1.0) Proteinase 3 Ab (PR3), S <0.2 <0.4 (Negative ) U 03/24/2025 1:38 PM CDT [facility] Blood (Blood, Venous) 03/24/2025 9:27 AM CDT 03/24/2025 11:57 AM CDT Aleisha Sales APRN, C.N.P. LAB BLOOD ADD-O N Final Result [facility] [address] [place] [address] [facility] [address] [place] [address] * (ABNORMAL) Cytoplasmic Neutrophil Antibodies (03/24/2025 9:27 AM CDT) c-ANCA Negative Negative 03/28/2025 9:33 AM CDT [facility] Perinuclear (P-ANCA) Positive(A) Negative 03/28/2025 9:33 AM CDT [facility] Comment: Positive for MPO antibodies by solid-phase immunoassay and pANCA pattern by immunofluorescence. Consistent with ANCA-associated vasculitis, if compatible clinical features are present. ----ADDITIONAL INFORMATION---- This test was developed and its performance characteristics determined by [facility] in a manner consistent with CLIA requirements. This test has not been cleared or approved by the U.S. Food and Drug Administration. Blood 03/24/2025 9:27 AM CDT 03/24/2025 1:46 PM CDT us Aleisha Sales APRN C.N.P. LAB BLOOD ADD-O N Final Result [facility] [address] [place] [address] [facility] [address] [place] [address] [place] [address] * (ABNORMAL) CBC with Differential, Blood (03/24/2025 [...] 9:27 AM CDT 03/24/2025 9:49 AM CDT Aleisha Sales APRN, C.N.P. LAB BLOOD ADD-O N Final Result Performing Organization Address City/[facility]/ZIP Co de Phone Number [facility] [address] [place] [address] * (ABNORMAL) CRP (C-Reactive Protein) (03/24/2025 9:27 AM CDT) Pathologist [facility] C-Reactive Protein (CRP), S 5.5(H) <5.0 mg/L 03/24/2025 10:42 AM CDT DTL Blood (Blood, Venous) 03/24/2025 9:27 AM CDT 03/24/2025 10:12 AM CDT Aleisha Sales APRN, C.N.P. LAB BLOOD ADD-O N Final Result [facility] [address] [place] [address] * Uric Acid (03/24/2025 9:27 AM CDT) Uric Acid, S 5.6 2.7 - 6.1 mg/dL 03/24/2025 10:42 AM CDT DTL Blood (Blood, Venous) 03/24/2025 9:27 AM CDT 03/24/2025 10:12 AM CDT Aleisha Sales APRN, C.N.P. LAB BLOOD ADD-O N Final Result Performing Organization Address City/[facility]/ZIP Co de Phone Number [facility] [address] [place] [address], [facility] 200 [place] [address] * (ABNORMAL) Glucose, Fasting (03/24/2025 9:27 AM CDT) Glucose, P 117(H) 70 - 100 mg/dL 03/24/2025 11:07 AM CDT DTL Last Intake 3 hr 03/24/2025 10:01 AM CDT DTL Blood (Blood, Venous) 03/24/2025 9:27 AM CDT 03/24/2025 10:01 AM CDT Aleisha Sales APRN, C.N.P. LAB BLOOD NON A DD-ON Final Result Performing Organization Address City/[facility] Co de Phone Number [facility] [address] [place] [address], [facility] [address] [place] [address] from Last 3 Months Insurance [place] Care Teams Law Enforcement Instructor Relationship Specialty Start Date End Date Elsewhere, Pcp PCP - General Family Medicine 07/16/18
--- OUTSIDE RECORDS SUMMARY | 2025-04-11 10:51 | XMS_ITS | Encounter Summary ---
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 200 [place] [address] Phone: tel: fax: [facility] Referral ID Status Reason Start Date Expiration Date Visits Re quested Visits Authorized [id number] Closed 03/24/2025 06/24/2026 1 1 Encounter Details Date Type Department Care Team (Late st Contact Info) Description 03/24/2025 Orders Only Division of Nephrology and Hypertension in [place], [place] 200 [place] [phone] Qian Marie M.D. 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 I have a [facility]'s place to live 04/08/2025 Education Answer Date Recorded What is the highest level of school you have completed or the highest degree you have received? Master's degree (e.g., MA, MS, Viraj, MEd, STILL CLEANER TUBE, SIMONE) 06/16/2019 Comments Unknown Sex and Gender Information Value Date Recorded Sex Assigned at Female 05/12/2018 9:12 AM CDT Legal Sex Female 5:22 PM ESTIMATION MANAGER Gender Identity Female 05/12/2018 9:12 AM CDT Sexual Orientation Straight 05/12/2018 9: 12 AM CDT documented as of this encounter Plan of Treatment Upcoming Encounters Date Type Department Care Team (Late st Contact Info) Description 04/26/2025 8:00 AM CDT Telemedicine Division of Nephrology and Hypertension in [place], [place] [address] [place] [phone] Ángel Cleveland M.B.B.S. 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) Expected: 04/08/2025, Expires: 06/23/2026 documented as of this encounter Results * (ABNORMAL) Comprehensive Metabolic Panel (04/08/2025 9:52 AM CDT) Pathologist [facility] Potassium, S 4.5 3.6 - 5.2 mmol/L [...] BLOOD ADD-ON Final Result Performing Organization Address City/[facility]/ZIP Co de Phone Number [facility] [address] 200 [place] [address] * Phosphorus Inorganic (04/08/2025 9:52 AM CDT) Phosphorus (Inorganic), S 3.0 2.5 - 4.5 mg/dL 04/08/2025 10:55 AM CDT DTL Blood (Blood, Venous) 04/08/2025 9:52 AM CDT 04/08/2025 10:25 AM CDT Qian Marie M.D. LAB BLOOD ADD-ON Final Result Performing Organization Address City/[facility]/ZIP Co de Phone Number [facility] [address] [place], [place] [address] [place] [address] 200 [place] [address] * Parathyroid Hormone (PTH) (04/08/2025 9:52 AM CDT) Parathyroid Hormone (PTH), S 56 15 - 65 pg/mL 04/08/2025 10:55 AM CDT DTL Blood (Blood, Venous) 04/08/2025 9:52 AM CDT 04/08/2025 10:25 AM CDT us Qian Marie M.D. LAB BLOOD ADD-ON Final Result [facility] [address] [place] [address], [place] DTL [facility] [address] * US Kidneys with Renal Artery Doppler [...] LAB URINE ORDERABLES Final Resul t [facility] [address] [place] [address], [facility] [address] [place] [address] * (ABNORMAL) Protein, Total, 24 hour, Urine [...] M.D. LAB URINE ORDERABLES Final Resul t [facility] [address] [place] [address], [facility] [address] [place] [address] * (ABNORMAL) Creatinine Clearance, Serum and 24 [...] AM CDT 04/07/2025 1:31 PM CDT Narrative [facility] - 04/07/2025 2:41 PM CDT Specimen Information: Specimen ID: [id number] Specimen Type: Urine Specimen Collection Start Date: 04/06/2025 5:26 AM Specimen Received Date: 04/07/2025 1:31 PM Specimen ID: [id number] Specimen Type: Blood Specimen Collection Start Date: 04/05/2025 8:49 AM Specimen Received Date: 04/07/2025 1:42 PM Qian Marie M.D. 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
[2025-04-11 11:01] VITALS: BP 143/87; PULSE 71; RESP 16; TEMP 36.7; O2SAT 100; BMI 31.6
[2025-04-11 12:04] LABS: Basophils Absolute Auto 0.04 K/uL (0.00-0.30); Basophils Percent Auto 0.5 % (0.0-3.0); Eosinophils Percent Auto 1.3 % (0.0-7.0); Hematocrit 44.5 % (33.0-51.0); Hemoglobin* 14.7 gm/dL (12.0-16.0); Immature Granulocytes Abs Auto 0.02 K/uL (0.00-0.30); Immature Granulocytes Pct Auto 0.3 %; Lymphocytes Percent Auto 19.9 % (20-44); Mean Corpuscular HGB Conc 33 gm/dL (32-36); Mean Corpuscular Hemoglobin 31 pg (26-34); Mean Corpuscular Volume 93 fL (80-100); Monocytes Percent Auto 6.4 % (0.0-11.0); Neutrophils Absolute Auto 5.34 K/uL (1.7-7.0); Neutrophils Percent Auto 71.6 % (42.0-72.0); Platelet Count* 248 K/uL (140-440); RDW Coefficient of Variation % 12.2 % (11.5-15.5); Red Blood Count 4.78 m/uL (4.00-5.20); White Blood Count* 7.47 K/uL (4.50-11.00)
[2025-04-11 12:09] LABS: Slide Review Reflex No
[2025-04-11 12:17] LABS: Chloride* 109 mmol/L (96-114); Potassium* 4.5 mmol/L (3.6-5.1)
[2025-04-11 12:20] LABS: Blood Urea Nitrogen* 14 mg/dL (5-24); Calcium* 9.3 mg/dL (8.4-10.6); Carbon Dioxide* 25 mmol/L (20-32); Est. Creatinine Clearance* 68.36; Estimated Glomerular Filt Rate 70 ml/min; Glucose* 113 mg/dL (60-115); Magnesium* 2.1 mg/dL (1.5-2.6)
--- OUTSIDE RECORDS SUMMARY | 2025-04-11 12:27 | XMS_ITS | Encounter Summary ---
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 200 [place] [address] Phone: tel: fax: [facility] Referral ID Status Reason Start Date Expiration Date Visits Re quested Visits Authorized [id number] Closed 03/24/2025 09/23/2026 [address] 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 200 [place] [address] Phone: tel: fax: [facility] Referral ID Status Reason Start Date Expiration Date Visits Re quested Visits Authorized [id number] Closed 02/04/2025 08/06/2026 1 1 Encounter Details Date Type Department Care Team (Latest Contact Info) Description 03/24/2025 2:00 PM CDT Comprehensive Visit Division of Pulmonary Medicine in [place], [place] [address] [place] [phone] Atif Ambrose M.D. 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 I have a [facility] place to live 03/30/2024 Education Answer Date Recorded What is the highest level of school you have completed or the highest degree you have received? Master's degree (e.g., MA, MS, Viraj, MEd, GOVERNMENT CLERK, SIMONE) 06/16/2019 Comments Unknown Sex and Gender Information Value Date Recorded Sex Assigned at Female 05/12/2018 9:12 AM CDT Legal Sex Female 5:22 PM STERILE TECH Gender Identity Female 05/12/2018 9:12 AM CDT [...] who was initially seen at the [facility] in 2012 for evaluation of shortness of [...] the aftermath of an influenza infection around [place]. These symptoms have since completely resolved. OBJECTIVE [...] Telemedicine Division of Nephrology and Hypertension in [place], [place] [address] [place] [phone] Ángel Cleveland M.B.B.S. [address] [place] [phone] Sylvia Jackman, RDN, LD [address] [place] [phone] Scheduled Referrals Name Type Priority Associated Diagnoses [...] (HCC) documented in this encounter Care Teams Superintendent House Relationship Specialty Start Date End Date Elsewhere, Pcp PCP - General Family Medicine 07/16/18 documented as of this encounter
--- OUTSIDE RECORDS SUMMARY | 2025-04-11 12:27 | XMS_ITS | Encounter Summary ---
Author Organization [facility] Address [address] [place] [address] Care Team Providers Care Flight Communications Operator Name Role Phone Elsewhere, Pcp Primary Care Provider Unavailabl e Encounter Details Date Type Department Care Team (Latest Contact Info) Description 03/24/2025 9:18 AM CDT - 03/24/2025 2:29 PM CDT Hospital Encounter Department of Laboratory Medicine and Pathology, [facility] in [place], [place] [address] [place] [address] Aleisha Sales T, CONSULTING SOFTWARE ENGINEER, C.N.P. 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); Stenosis Subglottic Discharge Disposition: Home or Self Care Social History Tobacco Use Types Packs/Day Years Used Date Smoking Tobacco: Never Smokeless Tobacco: Never Alcohol Use Standard Drinks/Week Comments Yes 2 (1 standard drink = 0.6 oz pur e alcohol) 1-2 per week [facility] Utilities Answer Date Recorded In the [...] and Family Once a week 07/16/2019 Attends [facility] More than 4 times per year [...] Living Expenses Not hard at all 06/17/2019 [facility] of Occupat ional Health - [...] Master's degree (e.g., MA, MS, Viraj, MEd, ROAD DRIVER, SIMONE) 06/16/2019 Comments Unknown Sex and Gender Information Value Date Recorded Sex Assigned at Female 05/12/2018 9:12 AM CDT Legal Sex Female 5:22 PM PLANT PHYSIOLOGY TEACHER Gender Identity Female 05/12/2018 9:12 AM CDT [...] Telemedicine Division of Nephrology and Hypertension in [place], [place] [address] [place] [address] Ángel Cleveland M.B.B.S. 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 Consistent with ANCA-associated vasculitis, if compatible clinical features are present. ----ADDITIONAL INFORMATION---- This test was developed and its performance characteristics determined by [facility] in a manner consistent with CLIA requirements. This test has not been cleared or approved by the U.S. Food and Drug Administration. Blood 03/24/2025 9:27 AM CDT 03/24/2025 1:46 PM CDT Aleisha Sales APRN, C.N.P. LAB BLOOD ADD-O N Final Result Performing Organization Address City/[facility]/ZIP Co de Phone Number [facility] [address] [place] [address] [facility] [address] [place] [address] [place] [address] * Uric Acid (03/24/2025 9:27 AM CDT) Pathologist [facility] Uric Acid, S 5.6 2.7 - 6.1 mg/dL 03/24/2025 10:42 AM CDT DT Blood (Blood, Venous) 03/24/2025 9:27 AM CDT 03/24/2025 10:12 AM CDT Aleisha Sales APRN, C.N.P. LAB BLOOD ADD-O N Final Result [facility] [address] [place] [address], [place] [facility] [address] [place] [address] * Phosphorus Inorganic (03/24/2025 9:27 AM CDT) Pathologist [facility] Phosphorus (Inorganic), S 3.0 2.5 - 4.5 mg/dL 03/24/2025 10:42 AM CDT DTL Blood (Blood, Venous) 03/24/2025 9:27 AM CDT 03/24/2025 10:12 AM CDT Aleisha Sales APRN, C.N.P. LAB BLOOD ADD-O N Final Result Performing Organization Address City/[facility]/ZIP Co de Phone Number [facility] 200 [place] [address], [facility] 200 [place] [address] * (ABNORMAL) Glucose, Fasting (03/24/2025 9:27 AM CDT) Glucose, P 117(H) 70 - 100 mg/dL 03/24/2025 11:07 AM CDT DTL Last Intake 3 hr 03/24/2025 10:01 AM CDT DT Blood (Blood, Venous) 03/24/2025 9:27 AM CDT 03/24/2025 10:01 AM CDT Aleisha Sales APRN, C.N.P. LAB BLOOD NON A DD-ON Final Result Performing Organization Address [facility] Co de Phone Number [facility] [address] [place] [address], [facility] [address] [place] [address] * (ABNORMAL) CRP (C-Reactive Protein) (03/24/2025 9:27 AM CDT) C-Reactive Protein (CRP), S 5.5(H) <5.0 mg/L 03/24/2025 10:42 AM CDT DTL Blood (Blood, Venous) 03/24/2025 9:27 AM CDT 03/24/2025 10:12 AM CDT Aleisha Sales APRN, C.N.P. LAB BLOOD ADD-O N Final Result [facility] [address] [place] [address], [place] DTL [facility] [address] [place] [address] * (ABNORMAL) Comprehensive Metabolic Panel (03/24/2025 9:27 [...] C.N.P. LAB BLOOD ADD-O N Final Result [facility] [address] [place] [address], [facility] [address] [place] [address] * (ABNORMAL) CBC with Differential, Blood (03/24/2025 [...] ADD-O N Final Result Performing Organization Address City/[facility]/ZIP Co de Phone Number [facility] [address] [place] [address], [facility] DTL [facility] [address] [place] [address] DHPM [facility] [address] [place] [address] * (ABNORMAL) ANCA (Antineutrophil Cytoplasmic Antibodies) Vasculitis Panel (03/24/2025 9:27 AM CDT) Myeloperoxidase Ab, S 7.7(H) <0.4 (Negative ) U 03/24/2025 1:38 PM CDT [facility] Comment:Interpretation: Posi tive (>=1.0) Proteinase 3 Ab (PR3), S <0.2 <0.4 (Negative ) U 03/24/2025 1:38 PM CDT [facility] Blood (Blood, Venous) 03/24/2025 9:27 AM CDT 03/24/2025 11:57 AM CDT us Aleisha Sales APRN, C.N.P. 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
--- OUTSIDE RECORDS SUMMARY | 2025-04-11 12:27 | XMS_ITS | Encounter Summary ---
Author Organization [facility] Address [address] [place] [address] Care Team Providers Care Hand Flatwork Finisher Name Role Phone Elsewhere, Pcp Primary Care Provider Unavailabl e Reason for Visit * Outpatient (Routine) - Closed Specialty Diagnoses / Procedures Referred By Parul chauhan Referred To Contact Otorhinolaryngology Aleisha Sales APRN, C.N.P. [address] [place] [phone] Phone: tel: fax: [facility] Referral ID Status Reason Start Date Expiration Date Visits Re quested Visits Authorized [id number] Closed 02/01/2025 08/03/2026 1 1 Encounter Details Date Type Department Care Team (Latest Contact Info) Description 03/24/2025 11:15 AM CDT Office Visit Department of Otorhinolaryngology in [place], [place] [address] [place] [phone] Aleisha Sales APRN, C.N.P. 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) (Primary Dx); Stenosis Subglottic Social History Tobacco Use Types Packs/Day Years Used Date Smoking Tobacco: Never Smokeless Tobacco: Never Alcohol Use Standard Drinks/Week Comments Yes 2 (1 standard drink = 0.6 oz pur e alcohol) 1-2 per week [facility] Utilities Answer Date Recorded In [...] and Family Once a week 07/16/2019 Attends Oriental [employer] Services More than 4 times per [...] Living Expenses Not hard at all 06/17/2019 [facility] of Occupat ional Health - Occupational Stress [...] Master's degree (e.g., MA, MS, Viraj, MEd, RETAINING ROOM CUTTER, SIMONE) 06/16/2019 Comments Unknown Sex and Gender Information Value Date Recorded Sex Assigned at Female 05/12/2018 9:12 AM CDT Legal Sex Female 5:22 PM ANY COMMODITY BUYER Gender Identity Female 05/12/2018 9:12 AM CDT [...] Ears: Bilateral canals and TM's normal. Nose: [place] and moist. Oral Cavity: [place] and moist. Mucous membranes normal . [place] dentition noted. Neck: No palpable lymphadenopathy. PROCEDURE [...] test results and Dr. Ambrose consult with cane flume feeding machine operator. - Follow up after reviewing test results and consulting with cane flume feeding machine operator. PATIENT EDUCATION: Ready to learn, no apparent learning barriers were identified; learning preferences include listening. Explained diagnosis and treatment plan; patient expressed understanding of the content. documented in this encounter Plan of Treatment Upcoming Encounters Date Type Department Care Team (Late st Contact Info) Description 04/26/2025 8:00 AM CDT Telemedicine Division of Nephrology and Hypertension in [place], [place] [address] [place] [phone] Ángel Cleveland M.B.BMatheusS. 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
--- OUTSIDE RECORDS SUMMARY | 2025-04-11 12:28 | XMS_ITS | Encounter Summary ---
Author Organization [facility] Address [address] [place] [address] Care Team Providers Care Pipe Insulator Name Role Phone Elsewhere, Pcp Primary Care Provider Unavailabl e Encounter Details Date Type Department Care Team (Latest Contact Info) Description 02/03/2025 Clinical Communication Department of Otorhinolaryngology in [place], [place] [address] [place] [phone] Aleisha Sales T, SOLID WASTE FACILITY OPERATOR, C.N.P. [address] [place] [phone] Social History Tobacco Use Types Packs/Day Years Used Date Smoking Tobacco: Never Smokeless Tobacco: Never Alcohol Use Standard Drinks/Week Comments Yes 2 (1 standard drink = 0.6 oz pur e alcohol) 1-2 per week [facility] Utilities Answer Date Recorded In the past 12 months has e [employer], gas, oil, or water [place] threatened to shut off services in your home? No 03/30/2024 Social Connection and Isolat ion Panel [NHANES] Answer Date Recorded Frequency of Communication w ith Friends and Family Three times a week 07/16/2019 Frequency of Social Gatherin gs with Friends and Family Once a week 07/16/2019 Attends [employer] Services More than 4 times per year [...] Expenses Not hard at all 06/17/2019 [facility] of Occupat ional Health - Occupational Stress [...] living situation today? I have a [facility] place to live 03/30/2024 Education Answer Date Recorded What is the highest level of school you have completed or the highest degree you have received? Master's degree (e.g., MA, MS, Viraj, MEd, MUSIC COPYIST, SIMONE) 06/16/2019 Comments Unknown Sex and Gender Information Value Date Recorded Sex Assigned at Female 05/12/2018 9:12 AM CDT Legal Sex Female 5:22 PM HEALTHCARE NETWORK CONSULTANT Gender Identity Female 05/12/2018 9:12 AM CDT Sexual Orientation Straight 05/12/2018 9: 12 AM CDT documented as of this encounter Plan of Treatment Upcoming Encounters Date Type Department Care Team (Late st Contact Info) Description 04/26/2025 8:00 AM CDT Telemedicine Division of Nephrology and Hypertension in [place], [place] [address] [place] [address] Ángel Cleveland M.B.B.S. [address] [place] [phone] Sylvia Jackman, RDN, LD [address] [place] [phone] documented as of this encounter Visit Diagnoses Not on filedocumented in this encounter Care Teams Pipe Insulator Relationship Specialty Start Date End Date Elsewhere, Pcp PCP - General Family Medicine 07/16/18 documented as of this encounter
--- OUTSIDE RECORDS SUMMARY | 2025-04-11 12:28 | XMS_ITS | Clinical Summary ---
Author Organization [facility] Address [address] [place] [address] Phone Care Team Providers Care Tire Shop Manager Name Role Phone Flores Carter MD Primary Care Provider [phone] Allergies Active Allergy Reactions Criticality Noted Date [...] INTERFACED INSURANCE PM INTERFACED INSURANCE Care Teams Tire Shop Manager Relationship Specialty Start Date End Date Flores Carter MD [address] [place] [address] PCP - General 06/12/23
--- OUTSIDE RECORDS SUMMARY | 2025-04-11 12:28 | XMS_ITS | Encounter Summary ---
Author Organization [facility] Address [address] [place] [address] Care Team Providers Care Tire Duster Name Role Phone Elsewhere, Pcp Primary Care Provider Unavailabl e Reason for Visit * Reason Onset Date Comments Med Refill 03/01/2025 Encounter Details Date Type Department Care Team (Late st Contact Info) Description 03/01/2025 Refill Department of Otorhinolaryngology in [place], [place] [address] [place] [phone] Aleisha Sales T, SERVICE OBSERVER CHIEF, C.N.P. [address] [place] [phone] Med Refill Social History Tobacco Use Types Packs/Day Years Used Date Smoking Tobacco: Never Smokeless Tobacco: Never Alcohol Use Standard Drinks/Week Comments Yes 2 (1 standard drink = 0.6 oz pur e alcohol) 1-2 per week [facility] Utilities Answer Date Recorded In the past 12 months has [place], gas, oil, or water [employer] threatened to shut off services in your [...] Living Expenses Not hard at all 06/17/2019 [facility] [place] of Occupat ional Health - Occupational Stress [...] living situation today? I have a [facility] place to live 03/30/2024 Education Answer Date Recorded What is the highest level of school you have completed or the highest degree you have received? Master's degree (e.g., MA, MS, Viraj, MEd, HOUSEKEEPER/LAUNDRY ASSISTANT, SIMONE) 06/16/2019 Comments Unknown Sex and Gender Information Value Date Recorded Sex Assigned at Female 05/12/2018 9:12 AM CDT Legal Sex Female 5:22 PM HISTOLOGY ASSISTANT Gender Identity Female 05/12/2018 9:12 AM CDT Sexual Orientation Straight 05/12/2018 9: 12 AM CDT documented as of this encounter Plan of Treatment Upcoming Encounters Date Type Department Care Team (Late st Contact Info) Description 04/26/2025 8:00 AM CDT Telemedicine Division of Nephrology and Hypertension in [place], [place] [address] [place] [phone] Ángel Cleveland M.B.B.S. [address] [place] [address] [phone] Sylvia Jackman, RDN, LD [address] [place] [phone] documented as of this encounter Visit Diagnoses Not on filedocumented in this encounter Care Teams Tire Duster Relationship Specialty Start Date End Date Elsewhere, Pcp PCP - General Family Medicine 07/16/18 documented as of this encounter
--- OUTSIDE RECORDS SUMMARY | 2025-04-11 12:28 | XMS_ITS | Encounter Summary ---
Author Organization [facility] Address [address] [place] [address] Care Team Providers Care Paper Sales Manager Name Role Phone Elsewhere, Pcp Primary Care Provider Unavailabl e Encounter Details Date Type Department Care Team (Late st Contact Info) Description 03/21/2025 Orders Only Virtual Review in [place], [place] 200 [place] [phone] Beatris Mendiola Social History Tobacco Use Types Packs/Day Years Used Date Smoking Tobacco: Never Smokeless Tobacco: Never Alcohol Use Standard Drinks/Week Comments Yes 2 (1 standard drink = 0.6 oz pur e alcohol) 1-2 per week [facility] Utilities Answer Date Recorded In the [...] Living Expenses Not hard at all 06/17/2019 [facility] [place] of Occupat ional Health - Occupational Stress [...] your living situation today? I have a [facility] place to live 03/30/2024 Education Answer Date Recorded What is the highest level of school you have completed or the highest degree you have received? Master's degree (e.g., MA, MS, Viraj, MEd, LEAD SETTER, SIMONE) 06/16/2019 Comments Unknown Sex and Gender Information Value Date Recorded Sex Assigned at Female 05/12/2018 9:12 AM CDT Legal Sex Female 5:22 PM LIVING SUPERVISOR Gender Identity Female 05/12/2018 9:12 AM CDT Sexual Orientation Straight 05/12/2018 9: 12 AM CDT documented as of this encounter Plan of Treatment Upcoming Encounters Date Type Department Care Team (Late st Contact Info) Description 04/26/2025 8:00 AM CDT Telemedicine Division of Nephrology and Hypertension in [place], [place] [address] [place] [phone] Ángel Cleveland M.B.B.S. [address] [place] [phone] Sylvia Jackman, RDN, LD [address] [place] [phone] documented as of this encounter Visit Diagnoses Not on filedocumented in this encounter Care Teams Paper Sales Manager Relationship Specialty Start Date End Date Elsewhere, Pcp PCP - General Family Medicine 07/16/18 documented as of this encounter
--- OUTSIDE RECORDS SUMMARY | 2025-04-11 12:28 | XMS_ITS | Encounter Summary ---
Author Organization [facility] Address [address] [place] [address] Care Team Providers Care Liner Worker Name Role Phone Elsewhere, Pcp Primary Care Provider Unavailabl e Encounter Details Date Type Department Care Team (Latest Contact Info) Description 03/24/2025 9:18 AM CDT - 03/24/2025 2:29 PM CDT Hospital Encounter Department of Laboratory Medicine and Pathology, [facility] in [place], [place] [address] [place] [phone] Aleisha Sales T, TYPEWRITER MECHANIC, C.N.P. 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); Stenosis Subglottic Discharge Disposition: Home or Self Care Social History Tobacco Use Types Packs/Day Years Used Date Smoking Tobacco: Never Smokeless Tobacco: Never Alcohol Use Standard Drinks/Week Comments Yes 2 (1 standard drink = 0.6 oz pur e alcohol) 1-2 per week [facility] Utilities Answer Date Recorded In [...] hard at all 06/17/2019 [facility] [place] [facility] of Occupat ional Health - [...] Master's degree (e.g., MA, MS, Viraj, MEd, COMMERCIAL CREDIT HEAD, SIMONE) 06/16/2019 Comments Unknown Sex and Gender Information Value Date Recorded Sex Assigned at Female 05/12/2018 9:12 AM CDT Legal Sex Female 5:22 PM FILLING HAND Gender Identity Female 05/12/2018 9:12 AM CDT [...] Telemedicine Division of Nephrology and Hypertension in [place], [place] [address] [place] [address] Ángel Cleveland M.B.B.S. [address] [place] [address] Sylvia Jackman, NERYN, LD [address] [place] [phone] documented as of this encounter Procedures Procedure [...] LAB URINE ORDER PRUDENCE Final Result [facility] [address] [facility] 200 [place] [address] * Osmolality, Urine (03/24/2025 10:00 AM CDT) Osmolality, U 228 150 - 1150 mOsm/kg 03/24/2025 10:45 AM CDT DTL Urine 03/24/2025 10:0 0 AM CDT 03/24/2025 10:00 AM CDT Aleisha Sales APRN, C.N.P. LAB URINE ORDER PRUDENCE Final Result [facility] [address] 200 [place] [address] * pH, Urine (03/24/2025 10:00 AM CDT) Pathologist [facility] pH, U 5.6 4.5 - 8.0 03/24/2025 10: 45 AM CDT DT Urine 03/24/2025 10:0 0 AM CDT 03/24/2025 10:00 AM CDT Aleisha Sales APRN, C.N.P. LAB URINE ORDER PRUDENCE Final Result [facility] [address] 200 [place] [address] * Microscopic Automated (03/24/2025 10:00 AM CDT) [...] ORDER PRUDENCE Final Result Performing Organization Address [facility] de Phone Number [facility] 200 [place], [place] [phone] [place] [address] 200 [place] [address] * (ABNORMAL) Urinalysis, with Microscopic: Urine, Midstream [...] ORDER PRUDENCE Final Result Performing Organization Address [facility]/ZIP Co de Phone Number [facility] 200 [place] [address], [facility] 200 [place] [address] documented in this encounter Visit Diagnoses Diagnosis 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
--- OUTSIDE RECORDS SUMMARY | 2025-04-11 12:28 | XMS_ITS | Encounter Summary ---
Author Organization [facility] Address [address] [place] [address] Phone Care Team Providers Care Evidence Custodian Name Role Phone Flores Carter MD Primary Care Provider [phone] Reason for Visit * Reason Comments Med Refill Encounter Details Date Type Department Care Team (Late st Contact Info) Description 10/11/2022 Refill [facility] [address] [place], [place] [phone] Micky Chandra PA [address] [place], [place] [address] Chronic kidney disease stage 2; IgA nephropathy; [...] specified documented in this encounter Care Teams Evidence Custodian Relationship Specialty Start Date End Date Flores Carter MD [address] [place] [address] PCP - General 06/12/23 documented as of this encounter
--- OUTSIDE RECORDS SUMMARY | 2025-04-11 12:28 | XMS_ITS | Encounter Summary ---
Author Organization [facility] Address [address] [place] [address] Care Team Providers Care Crayon Molding Machine Operator Name Role Phone Elsewhere, Pcp Primary Care Provider Unavailabl e Reason for Visit * Reason Onset Date Comments Pre-visit Intake 03/21/2025 * Appointment Request (Routine) - Authorized Specialty Diagnoses / Procedures Referred By Parul t Referred To Contact Otorhinolaryngology Referral ID Status Reason Start Date Expiration Date V isits Requested Visits Authorized [id number] Authorized 02/11/2025 05/14/2026 1 1 Encounter Details Date Type Department Care Team (Latest Contact Info) Description 03/21/2025 4:15 PM CDT Clinical Communication Virtual Review in [address] [phone] Pre-visit Intake Social History Tobacco Use Types [...] and Family Once a week 07/16/2019 Attends [employer] Services More than 4 times per year [...] Living Expenses Not hard at all 06/17/2019 [facility] [place] of Occupat ional Health - Occupational Stress [...] your living situation today? I have a [facility] place to live 03/30/2024 Education Answer Date Recorded What is the highest level of school you have completed or the highest degree you have received? 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 [address] [place] [phone] Sylvia Jackman, RDN, LD [address] [place] [phone] documented as of this encounter Visit Diagnoses Not on filedocumented in this encounter Care Teams Crayon Molding Machine Operator Relationship Specialty Start Date End Date Elsewhere, Pcp PCP - General Family Medicine 07/16/18 documented as of this encounter
--- OUTSIDE RECORDS SUMMARY | 2025-04-11 12:28 | XMS_ITS | Encounter Summary ---
Author Organization [facility] Address [address] [place] [address] Care Team Providers Care Buttonhole Tacker Name Role Phone Elsewhere, Pcp Primary Care Provider Unavailabl e Reason for Visit * Reason Onset Date Comments Appt Request 02/04/2025 Encounter Details Date Type Department Care Team (Late st Contact Info) Description 02/04/2025 Clinical Communication Division of Pulmonary Medicine in [place], [place] [address] [place] [phone] Atif Ambrose M.D. [address] [place] [phone] Appt Request Social History Tobacco Use Types Packs/Day Years Used Date Smoking Tobacco: Never Smokeless Tobacco: Never Alcohol Use Standard Drinks/Week Comments Yes 2 (1 standard drink = 0.6 oz pur e alcohol) 1-2 per week [facility] Utilities Answer Date Recorded In the past 12 months has e [place], gas, oil, or water [employer] threatened to shut off services in your home? No 03/30/2024 Social Connection and Isolat ion Panel [NHANES] Answer Date Recorded Frequency of Communication w ith Friends and Family Three times a week 07/16/2019 Frequency of Social Gatherin gs with Friends and Family Once a week 07/16/2019 Attends [employer] More than 4 times per year [...] Living Expenses Not hard at all 06/17/2019 [facility] [place] of Occupat ional Health - Occupational Stress [...] living situation today? I have a [facility] place to live 03/30/2024 Education Answer Date Recorded What is the highest level of school you have completed or the highest degree you have received? Master's degree (e.g., MA, MS, Viraj, MEd, PHYSICAL EDUCATION INSTRUCTOR, SIMONE) 06/16/2019 Comments Unknown Sex and Gender Information Value Date Recorded Sex Assigned at Female 05/12/2018 9:12 AM CDT Legal Sex Female 5:22 PM SUPERINTENDENT QUARRY Gender Identity Female 05/12/2018 9:12 AM CDT Sexual Orientation Straight 05/12/2018 9: 12 AM CDT documented as of this encounter Plan of Treatment Upcoming Encounters Date Type Department Care Team (Late st Contact Info) Description 04/26/2025 8:00 AM CDT Telemedicine Division of Nephrology and Hypertension in [place], [place] [address] [place] [address] Ángel Cleveland M.B.B.S. [address] [place] [address] Sylvia Jackman, NERYN, LD [address] [place] [phone] documented as of this encounter Visit Diagnoses Not on filedocumented in this encounter Care Teams Buttonhole Tacker Relationship Specialty Start Date End Date Elsewhere, Pcp PCP - General Family Medicine 07/16/18 documented as of this encounter
--- OUTSIDE RECORDS SUMMARY | 2025-04-11 12:30 | XMS_ITS | Encounter Summary ---
Author Organization [facility] Address [address] [place] [address] Care Team Providers Care Sidehand Name Role Phone Elsewhere, Pcp Primary Care Provider Unavailabl e Reason for Referral * Outpatient (Routine) - Closed Specialty Diagnoses / Procedures Referred By Contac t Referred To Contact Diagnoses 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) Procedures US Kidneys with Renal Artery Doppler Qian Marie M.D. 200 [place] [address] Phone: tel: fax: [facility] Referral ID Status Reason Start Date Expiration Date Visits Re quested Visits Authorized [id number] Closed 03/24/2025 06/24/2026 1 1 Encounter Details Date Type Department Care Team (Late st Contact Info) Description 03/24/2025 Orders Only Division of Nephrology and Hypertension in [place], [place] 200 [place] [phone] Qian Marie M.D. 200 [place] [phone] 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) (Primary Dx) Social History Tobacco Use Types Packs/Day Years Used Date Smoking Tobacco: Never Smokeless Tobacco: Never Alcohol Use Standard Drinks/Week Comments Yes 2 (1 standard drink = 0.6 oz pur e alcohol) 1-2 per week [facility] Utilities Answer Date Recorded In the [...] and Family Once a week 07/16/2019 Attends [employer] Services More than 4 times per year [...] Living Expenses Not hard at all 06/17/2019 [facility] of Occupat ional Health - Occupational [...] your living situation today? I have a [facility] place to live 04/08/2025 Education Answer Date Recorded What is the highest level of school you have completed or the highest degree you have received? 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 [address] [place] [phone] Sylvia Jackman, RDN, LD [address] [place] [phone] Pending Results Name Type Priority Associated Diagnoses [...] Metabolic Panel (04/08/2025 9:52 AM CDT) Pathologist [facility] Potassium, S 4.5 3.6 - 5.2 mmol/L [...] BLOOD ADD-ON Final Result Performing Organization Address City/[facility]/ZIP Co de Phone Number [facility] [address] 200 [place] [address] * Phosphorus Inorganic (04/08/2025 9:52 AM CDT) Phosphorus (Inorganic), S 3.0 2.5 - 4.5 mg/dL 04/08/2025 10:55 AM CDT DTL Blood (Blood, Venous) 04/08/2025 9:52 AM CDT 04/08/2025 10:25 AM CDT Qian Marie M.D. LAB BLOOD ADD-ON Final Result Performing Organization Address City/[facility]/ZIP Co de Phone Number [facility] [address] [place], [place] [phone] [place] [address] 200 [place] [address] * Parathyroid Hormone (PTH) (04/08/2025 9:52 AM CDT) Parathyroid Hormone (PTH), S 56 15 - 65 pg/mL 04/08/2025 10:55 AM CDT DTL Blood (Blood, Venous) 04/08/2025 9:52 AM CDT 04/08/2025 10:25 AM CDT us Qian Marie M.D. LAB BLOOD ADD-ON Final Result [facility] [address] [place] [address], [place] DTL [facility] [address] * US Kidneys with Renal Artery Doppler [...] M.D. LAB URINE ORDERABLES Final Resul t [facility] [address] [place] [address], [facility] [address] [place] [address] * (ABNORMAL) Protein, Total, 24 hour, Urine [...] M.D. LAB URINE ORDERABLES Final Resul t [facility] [address] [place] [address], [facility] [address] [place] [address] * (ABNORMAL) Creatinine Clearance, Serum and 24 [...] AM CDT 04/07/2025 1:31 PM CDT Narrative [facility] - 04/07/2025 2:41 PM CDT Specimen Information: Specimen ID: [id number] Specimen Type: Urine Specimen Collection Start Date: 04/06/2025 5:26 AM Specimen Received Date: 04/07/2025 1:31 PM Specimen ID: [id number] Specimen Type: Blood Specimen Collection Start Date: 04/05/2025 8:49 AM Specimen Received Date: 04/07/2025 1:42 PM Qian Marie M.D. LAB URINE ORDERABLES Final Resul t [facility] [address] [place] [address], [facility] [address] [place] [address] documented in this encounter Visit Diagnoses Diagnosis 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)- Primary 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) 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) documented in this encounter Care Teams Sidehand Relationship Specialty Start Date End Date Elsewhere, Pcp PCP - General Family Medicine 07/16/18 documented as of this encounter
--- OUTSIDE RECORDS SUMMARY | 2025-04-11 12:30 | XMS_ITS | Encounter Summary ---
Author Organization [facility] Address [address] [place] [address] Care Team Providers Care Body Mechanic Name Role Phone Elsewhere, Pcp Primary [...] oz pur e alcohol) 1-2 per week [facility] Utilities Answer Date Recorded In the [...] and Family Once a week 07/16/2019 Attends [employer] More than 4 times per year [...] Living Expenses Not hard at all 06/17/2019 [facility] of Occupat ional Health - Occupational Stress [...] your living situation today? I have a [facility] place to live 03/30/2024 Education Answer Date Recorded What is the highest level of school you have completed or the highest degree you have received? Master's degree (e.g., MA, MS, Viraj, MEd, ROUNDSMAN, SIMONE) 06/16/2019 Comments Unknown Sex and Gender Information Value Date Recorded Sex Assigned at Female 05/12/2018 9:12 AM CDT Legal Sex Female 5:22 PM ENGRAVER TENDER Gender Identity Female 05/12/2018 9:12 AM CDT Sexual Orientation Straight 05/12/2018 9: 12 AM CDT documented as of this encounter Plan of Treatment Upcoming Encounters Date Type Department Care Team (Late st Contact Info) Description 04/26/2025 8:00 AM CDT Telemedicine Division of Nephrology and Hypertension in [place], [place] [address] [place] [address] Ángel Cleveland M.B.B.S. [address] [place] [address] Sylvia Jackman, RDN, LD [address] [place] [phone] documented as of this encounter Procedures Procedure [...] on filedocumented in this encounter Care Teams Body Mechanic Relationship Specialty Start Date End Date Elsewhere, Pcp PCP - General Family Medicine 07/16/18 documented as of this encounter
--- OUTSIDE RECORDS SUMMARY | 2025-04-11 12:30 | XMS_ITS | Encounter Summary ---
Author Organization [facility] Address [address] [place] [address] Care Team Providers Care Market Asset Protection Manager Name Role Phone Elsewhere, Pcp Primary Care Provider Unavailabl e Encounter Details Date Type Department Care Team (Latest Contact Info) Description 04/08/2025 9:10 AM CDT - 04/08/2025 11:59 PM CDT Hospital Encounter Department of Laboratory Medicine and Pathology, [facility] in [place], [place] [address] [place] [address] Qian Marie M.D. [address] [place] [address] 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) Discharge Disposition: Home or Self Care Social History Tobacco Use Types Packs/Day Years Used Date Smoking Tobacco: Never Smokeless Tobacco: Never Alcohol Use Standard Drinks/Week Comments Yes 2 (1 standard drink = 0.6 oz pur e alcohol) 1-2 per week [facility] Utilities Answer Date Recorded In [...] and Family Once a week 07/16/2019 Attends [employer] Services More than 4 times per year [...] Living Expenses Not hard at all 06/17/2019 [facility] Occupat ional [facility] - Occupational Stress Questionnaire Answer [...] your living situation today? I have a [facility] place to live 04/08/2025 Education Answer Date Recorded What is the highest level of school you have completed or the highest degree you have received? Master's degree (e.g., MA, MS, Viraj, MEd, PLASTIC STRAIGHTENING ROLL OPERATOR, SIMONE) 06/16/2019 Comments Unknown Sex and Gender Information Value Date Recorded Sex Assigned at Female 05/12/2018 9:12 AM CDT Legal Sex Female 5:22 PM REPORTING PROCESS CONSULTANT Gender Identity Female 05/12/2018 9:12 AM [...] Nephrology and Hypertension in [place], [place] [address] [place] [phone] Ángel Cleveland M.B.B.S. [address] [place] [phone] Sylvia Jackman, RDN, LD [address] [place] [phone] Pending Results Name Type Priority Associated Diagnoses [...] Panel (04/08/2025 9:52 AM CDT) Pathologist [facility] Potassium, S 4.5 3.6 - 5.2 mmol/L [...] BLOOD ADD-ON Final Result Performing Organization Address City/[facility]/ZIP Co de Phone Number [facility] 200 [place], [place] [address] [place] [address] * Phosphorus Inorganic (04/08/2025 9:52 AM CDT) Phosphorus (Inorganic), S 3.0 2.5 - 4.5 mg/dL 04/08/2025 10:55 AM CDT DTL Blood (Blood, Venous) 04/08/2025 9:52 AM CDT 04/08/2025 10:25 AM CDT Qian Marie M.D. LAB BLOOD ADD-ON Final Result Performing Organization Address City/[facility]/ZIP Co de Phone Number [facility] [address] [place] [address], [facility] [address] [place] [phone] * Parathyroid Hormone (PTH) (04/08/2025 9:52 AM CDT) Parathyroid Hormone (PTH), S 56 15 - 65 pg/mL 04/08/2025 10:55 AM CDT DTL Blood (Blood, Venous) 04/08/2025 9:52 AM CDT 04/08/2025 10:25 AM CDT Qian Marie M.D. LAB BLOOD ADD-ON Final Result [address] [address], [facility] [address] [address] documented in this encounter Visit Diagnoses Diagnosis 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) documented in this encounter Care Teams Market Asset Protection Manager Relationship Specialty Start Date End Date Elsewhere, Pcp PCP - General Family Medicine 07/16/18 documented as of this encounter
--- OUTSIDE RECORDS SUMMARY | 2025-04-11 12:30 | XMS_ITS | Clinical Summary ---
Author Organization [facility] Address [address] [place] [address] Care Team Providers Care Cheese Specialist Name Role Phone Elsewhere, Pcp Primary Care Provider Unavailabl e Source Comments Patient records contain information from all sites at [facility]. For routine questions regarding patient records, call [phone] during business hours, M-F 8:00 AM - 5:00 PM Central Time. Record requests for emergency care only can be directed to [phone] at any time.[facility] Allergies Active Allergy Reactions Criticality Noted Date [...] Visit Division of Nephrology and Hypertension in [place], [place] [address] [place] [address] Qian Marie M.D. 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 Follow-up Orders 5 6:40 PM CDT Ancillary Procedure Department of Otorhinolaryngology 5 2:30 PM CDT - 5 11:59 PM CDT Hospital Encounter Department of Laboratory Medicine and Pathology, [facility] in [place], [place] [address] [place] [address] Qian Marie M.D. 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 Med Refill 5 Clinical Communication Division of Pulmonary Medicine in [place], [place] [address] [place] [phone] Atif Ambrose M.D. Appt Request 5 Orders Only Department of Otorhinolaryngology in [place], [place] [address] [place] [phone] Aleisha Sales APRN, C.N.P. 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 5 Orders Only Department of Otorhinolaryngology in [place], [place] [address] [place] [address] Aleisha Sales APRN, C.N.P. 5 Orders Only Department of Otorhinolaryngology in [place], [place] [address] [place] [address] Aleisha Sales APRN, C.N.P. 5 6:15 PM LOG LOADER Ancillary Procedure Department of Otorhinolaryngology 5 10:45 AM LOG LOADER Office Visit Department of Otorhinolaryngology in [place], [place] [address] [place] [address] Aleisha Sales APRN, C.N.P. Stenosis Subglottic (Primary [...] Paternal Grandmother erika muhle Depression Paternal Grandmother erika muhle Relation Name Status Comments Brother 1 [...] and Family Once a week 07/16/2019 Attends [employer] Services More than 4 times per year [...] Living Expenses Not hard at all 06/17/2019 [facility] - [...] your living situation today? I have a [facility] place to live 04/08/2025 Education Answer Date Recorded What is the highest level of school you have completed or the highest degree you have received? Master's degree (e.g., MA, MS, Viraj, MEd, INFORMATION LEAD, SIMONE) 06/16/2019 Comments Unknown Sex and Gender Information Value Date Recorded Sex Assigned at Female 05/12/2018 9:12 AM CDT Legal Sex Female 5:22 PM LOG LOADER Gender Identity Female 05/12/2018 9:12 AM CDT [...] Telemedicine Division of Nephrology and Hypertension in [place], [place] [address] [place] [address] Ángel Cleveland M.B.B.S. [address] [place] [address] Sylvia Jackman, RDN, LD [address] [place] [address] Health Maintenance Due Date Last Done Comments [...] OTORHINOLARYNGOLOGY IMAGE EXAM Routine 01/27/2025 11:29 AM LOG LOADER from Last 3 Months Results * Phosphorus Inorganic (04/08/2025 9:52 AM CDT) Only the most recent of2 resultswithin the time period is included. Phosphorus (Inorganic), S 3.0 2.5 - 4.5 mg/dL 04/08/2025 10:55 AM CDT DTL Blood (Blood, Venous) 04/08/2025 9:52 AM CDT 04/08/2025 10:25 AM CDT Qian Marie M.D. LAB BLOOD ADD-ON Final Result Performing Organization Address City/[facility]/ZIP Co de Phone Number [facility] 200 [place] [address], [facility] 200 [place] [address] * Parathyroid Hormone (PTH) (04/08/2025 9:52 AM CDT) Parathyroid Hormone (PTH), S 56 15 - 65 pg/mL 04/08/2025 10:55 AM CDT DTL Blood (Blood, Venous) 04/08/2025 9:52 AM CDT 04/08/2025 10:25 AM CDT Qian Marie M.D. LAB BLOOD ADD-ON Final Result Performing Organization Address [facility] de Phone Number [facility] 200 [place] [address], [place] [address] * (ABNORMAL) Comprehensive Metabolic Panel (04/08/2025 9:52 [...] Marie M.D. LAB BLOOD ADD-ON Final Result [facility] [address] [place] [address], [facility] [address] [place] [address] * US Kidneys with Renal Artery Doppler [...] M.D. LAB URINE ORDERABLES Final Resul t [facility] [address] [place] [address], [facility] [address] [place] [address] * (ABNORMAL) Protein, Total, 24 hour, Urine [...] M.D. LAB URINE ORDERABLES Final Resul t [facility] [address] [place] [address], [facility] [address] [place] [address] * (ABNORMAL) Creatinine Clearance, Serum and 24 [...] AM CDT 04/07/2025 1:31 PM CDT Narrative [facility] - 04/07/2025 2:41 PM CDT Specimen Information: Specimen ID: [id number] Specimen Type: Urine Specimen Collection Start Date: 04/06/2025 5:26 AM Specimen Received Date: 04/07/2025 1:31 PM Specimen ID: [id number] Specimen Type: Blood Specimen Collection Start Date: 04/05/2025 8:49 AM Specimen Received Date: 04/07/2025 1:42 PM us Qian Marie M.D. LAB URINE ORDERABLES Final Resul t [facility] [address] [place] [address], [place] [facility] [address] [place] [address] * Pulmonary Function Tests (03/24/2025 12:38 PM CDT) FVC 3.95 L 03/24/2025 1:29 PM CDT [facility] FEV1 3.08 L 03/24/2025 1:29 PM CDT [facility] FEV1/FVC 78.05 % 03/24/2025 1:29 PM CDT [facility] PEQ42-16% 2.78 L/s 03/24/2025 1:29 PM CDT [facility] PEF PRE 5.84 L/s 03/24/2025 1:29 PM CDT [facility] PIF PRE 4.48 L/s 03/24/2025 1:29 PM CDT [facility] Pre FEF50/FIF50 121.20 % 03/24/2025 1:29 PM CDT [facility] FET PRE 11.48 sec 03/24/2025 1:29 PM CDT [facility] MVV 82.61 L/min 03/24/2025 1:29 PM CDT [facility] DLCO 25.04 ml/(min*mm Hg) 03/24/2025 1:29 PM CDT [facility] DLCOc 23.58 ml/(min*mm Hg) 03/24/2025 1:29 PM CDT [facility] HB 15.60 g(Hb)/dL 03/24/2025 1:29 PM CDT [facility] SUITE Pre % Pred VA SINGLE BREATH 5.32 L 03/24/2025 1:29 PM CDT [facility] PulseRest 85.00 1/min 03/24/2025 1:29 PM CDT [facility] [id number] 98.00 % 03/24/2025 1:29 PM CDT [facility] PulseExer 109.00 1/min 03/24/2025 1:29 PM CDT [facility] EXER TIME 3.00 min 03/24/2025 1:29 PM CDT [facility] STEP HEIGHT PRE 9.00 Inch 03/24/2025 1:29 PM CDT [facility] 03/24/2025 12:3 8 PM CDT Impressions [facility] - 03/24/2025 1:29 PM CDT Abnormal. [...] Sales APRN, C.N.P. PFT ORDERABLES Final Result [facility] NA * Laryngopharyngoscopy-Otorhinolaryngology Image Exam (03/24/2025 [...] NON RAD IMAGING PROCE DURES Final Result [facility] NA * (ABNORMAL) Dipstick, Urine (03/24/2025 10:00 AM CDT) Pathologist [facility] Hemoglobin, QL, U Trace(A) Negative 03/24/2025 10:27 [...] ORDER PRUDENCE Final Result Performing Organization Address City/[facility] [place] [address] * Microscopic Automated (03/24/2025 10:00 AM CDT) [facility] Microscopy Normal 03/24/2025 10:27 AM CDT DTL RBC None Seen <3 /hpf 03/24/2025 10:27 AM CDT DTL WBC None Seen /hpf 03/24/2025 10:27 AM CDT DTL Comment: ----REFERENCE VALUE---- <4 (Males) <11 (Females) Urine 03/24/2025 10:0 0 AM CDT 03/24/2025 10:00 AM CDT Aleisha Sales APRN, C.N.P. LAB URINE ORDER PRUDENCE Final Result Performing Organization Address City/[facility]/[place] [address] * pH, Urine (03/24/2025 10:00 AM CDT) Pathologist [facility] pH, U 5.6 4.5 - 8.0 03/24/2025 10: 45 AM CDT DTL Urine 03/24/2025 10:0 0 AM CDT 03/24/2025 10:00 AM CDT Aleisha Sales APRN, C.N.P. LAB URINE ORDER PRUDENCE Final Result Performing Organization Address [facility] Co de Phone Number [facility] [address] [place] [address] * Osmolality, Urine (03/24/2025 10:00 AM CDT) Pathologist [facility] Osmolality, U 228 150 - 1150 mOsm/kg 03/24/2025 10:45 AM CDT DT Urine 03/24/2025 10:0 0 AM CDT 03/24/2025 10:00 AM CDT Aleisha Sales APRN, C.N.P. LAB URINE ORDER PRUDENCE Final Result Performing Organization Address [facility] de Phone Number [facility] [address] [place] [address] * (ABNORMAL) Urinalysis, with Microscopic: Urine, Midstream [...] C.N.P. LAB URINE ORDER PRUDENCE Final Result [facility] [address] [place] [address], [facility] DTL [facility] [address] [place] [address] * (ABNORMAL) ANCA (Antineutrophil Cytoplasmic Antibodies) Vasculitis Panel (03/24/2025 9:27 AM CDT) Pathologist [facility] Myeloperoxidase Ab, S 7.7(H) <0.4 (Negative ) U 03/24/2025 1:38 PM CDT [facility] Comment:Interpretation: Posi tive (>=1.0) Proteinase 3 Ab (PR3), S <0.2 <0.4 (Negative ) U 03/24/2025 1:38 PM CDT [facility] Blood (Blood, Venous) 03/24/2025 9:27 AM CDT 03/24/2025 11:57 AM CDT Aleisha Sales APRN, C.N.P. LAB BLOOD ADD-O N Final Result [facility] [address] [place] [address] [facility] [address] [place] [address] * (ABNORMAL) Cytoplasmic Neutrophil Antibodies (03/24/2025 9:27 AM CDT) c-ANCA Negative Negative 03/28/2025 9:33 AM CDT [facility] Perinuclear (P-ANCA) Positive(A) Negative 03/28/2025 9:33 AM CDT [facility] Comment: Positive for MPO antibodies by solid-phase immunoassay and pANCA pattern by immunofluorescence. Consistent with ANCA-associated vasculitis, if compatible clinical features are present. ----ADDITIONAL INFORMATION---- This test was developed and its performance characteristics determined by [facility] in a manner consistent with CLIA requirements. This test has not been cleared or approved by the U.S. Food and Drug Administration. Blood 03/24/2025 9:27 AM CDT 03/24/2025 1:46 PM CDT us Aleisha Sales APRN C.N.P. LAB BLOOD ADD-O N Final Result [facility] [address] [place] [address] [facility] [address] [place] [address] [place] [address] * (ABNORMAL) CBC with Differential, Blood (03/24/2025 [...] ADD-O N Final Result Performing Organization Address City/[facility]/ZIP Co de Phone Number [facility] 200 [place] [address] * (ABNORMAL) CRP (C-Reactive Protein) (03/24/2025 9:27 AM CDT) Pathologist [facility] C-Reactive Protein (CRP), S 5.5(H) <5.0 mg/L 03/24/2025 10:42 AM CDT DTL Blood (Blood, Venous) 03/24/2025 9:27 AM CDT 03/24/2025 10:12 AM CDT Aleisha Sales APRN, C.N.P. LAB BLOOD ADD-O N Final Result [facility] 200 [place] [address] * Uric Acid (03/24/2025 9:27 AM CDT) Uric Acid, S 5.6 2.7 - 6.1 mg/dL 03/24/2025 10:42 AM CDT DTL Blood (Blood, Venous) 03/24/2025 9:27 AM CDT 03/24/2025 10:12 AM CDT Aleisha Sales APRN, C.N.P. LAB BLOOD ADD-O N Final Result Performing Organization Address City/[facility]/ZIP Co de Phone Number [facility] [address] [place] [address], [facility] 200 [place] [address] * (ABNORMAL) Glucose, Fasting (03/24/2025 9:27 AM CDT) Glucose, P 117(H) 70 - 100 mg/dL 03/24/2025 11:07 AM CDT DTL Last Intake 3 hr 03/24/2025 10:01 AM CDT DTL Blood (Blood, Venous) 03/24/2025 9:27 AM CDT 03/24/2025 10:01 AM CDT Aleisha Sales APRN, C.N.P. LAB BLOOD NON A DD-ON Final Result Performing Organization Address City/[facility] Co de Phone Number [facility] [address] [place] [address], [facility] [address] [place] [address] from Last 3 [place] [address] Care Teams Cheese Specialist Relationship Specialty Start Date End Date Elsewhere, Pcp PCP - General Family Medicine 07/16/18
--- OUTSIDE RECORDS SUMMARY | 2025-04-11 12:30 | XMS_ITS | Clinical Summary ---
Author Organization [employer] [facility] Address [facility] [place] [address] Care Team Providers Care Clothespin Machine Operator Name Role Phone Linette Ambrocio Cortez Primary [...] (DME)Indications :Gastrocnemius equinus, unspecified laterality,Plant ar fasciitis [phone] Plantar Fascia Night Splint, Medium 1 Each [...] on file Legal Sex Female 7:08 AM PRIMING MIXTURE CARRIER Gender Identity Not on file Sexual Orientation [...] Comments Blood Pressure 125/85 12/10/2022 3:33 PM PRIMING MIXTURE CARRIER tow er Pulse 72 12/10/2022 3:33 PM PRIMING MIXTURE CARRIER Temperature 36.5 C (97.7 F) 10/02/2010 9:27 AM CDT Respiratory Rate 16 09/14/2010 2:34 PM CDT Oxygen Saturation 97% 12/10/2022 3:33 PM PRIMING MIXTURE CARRIER Inhaled Oxygen Concentration - - Weight 98 kg (216 lb) 12/10/2022 3:33 PM PRIMING MIXTURE CARRIER Height 171.5 cm (5' 7.5) 01/02/2010 9:02 AM PRIMING MIXTURE CARRIER Body Mass Index - - Plan of [...] 16 Negative Negative 06/26/2023 1:50 PM CDT [facility] TYPE 18 Negative Negative 06/26/2023 1:50 PM CDT [facility] OTHER HIGH RISK TYPES Negative Negative 06/26/2023 1:50 PM CDT [facility] Other (Cervical) 06/20/2023 4:30 PM CDT 06/25/2023 11:53 AM CDT Narrative [facility] - 06/26/2023 1:50 PM CDT HPV types 16, 18, 31, 33, 35, 39, 45, 51, 52, 56, 58, 59, 66 and 68 DNA were undetectable or below the pre-set threshold. Methodology: Rohini Cristiano 4800 HPV Test us Maame Palacios NP MICROBIOLOGY Final Res ult [facility] [address] [place] [address], * LIPID PANEL (07/05/2008 11:21 AM CDT) CHOLESTEROL,TOTAL 131 110 - 199 mg/dL [facility] TRIGLYCERIDES 101 40 - 149 mg/dL [facility] HDL CHOLESTEROL 43 >40 mg/dL [facility] CHOL/HDL RATIO 3.05 <4.51 [facility] LDL CHOLESTEROL 68 <131 mg/dL [facility] PATIENT STATUS Fasting [facility] Blood specimen (specimen) BLOOD SPECIMEN / Unknown 07/05/2008 11:21 AM CDT 07/05/2008 11:15 AM CDT Ambrocio Sue DO CHEMISTRY Final Re sult [facility] INTERNAL ZIP [address] [address] from Last 3 Months or Most Recently Relevant to Health Maintenance Care Teams Clothespin Machine Operator Relationship Specialty Start Date End Date Ambrocio Sue DO [address] [place] [id number] PCP - General 12/17/05
--- OUTSIDE RECORDS SUMMARY | 2025-04-11 12:30 | XMS_ITS | Encounter Summary ---
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 [address] [place] [address] Phone: tel: fax: [facility] Referral ID Status Reason Start Date Expiration Date Visits Re quested Visits Authorized [id number] Closed 03/24/2025 06/24/2026 1 1 Encounter Details Date Type Department Care Team (Latest Contact Info) Description 04/08/2025 7:51 AM CDT - 04/08/2025 9:09 AM CDT Hospital Encounter Department of Radiology, [facility], in [place], [place] [address] [place] [address] Qian Marie M.D. 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 I have a [facility] place to live 04/08/2025 Education Answer Date Recorded What is the highest level of school you have completed or the highest degree you have received? Master's degree (e.g., MA, MS, Viraj, MEd, SLUBBER RUNNER, SIMONE) 06/16/2019 Comments Unknown Sex and Gender Information Value Date Recorded Sex Assigned at Female 05/12/2018 9:12 AM CDT Legal Sex Female 5:22 PM POOL FINISHER Gender Identity Female 05/12/2018 9:12 AM CDT [...] Telemedicine Division of Nephrology and Hypertension in [place], [place] [address] [place] [address] Ángel Cleveland M.B.B.S. [address] [place] [address] Sylvia Jackman, RDN, LD [address] [place] [address] documented as of this encounter Procedures Procedure [...] (HCC) documented in this encounter Care Teams Crab Butcher Relationship Specialty Start Date End Date Elsewhere, Pcp PCP - General Family Medicine 07/16/18 documented as of this encounter
--- OUTSIDE RECORDS SUMMARY | 2025-04-11 12:30 | XMS_ITS | Encounter Summary ---
Author Organization [facility] Address [address] [place] [address] Care Team Providers Care Credit Control Assistant Name Role Phone Elsewhere, Pcp Primary Care Provider Unavailabl e Reason for Visit * Reason Onset Date Comments Follow-up Orders 04/08/2025 Encounter Details Date Type Department Care Team (Latest Contact Info) Description 04/08/2025 Clinical Communication Division of Nephrology and Hypertension in [place], [place] [address] [place] [address] Qian Marie M.D. [address] [place] [phone] Follow-up Orders Social History Tobacco Use Types Packs/Day Years Used Date Smoking Tobacco: Never Smokeless Tobacco: Never Alcohol Use Standard Drinks/Week Comments Yes 2 (1 standard drink = 0.6 oz pur e alcohol) 1-2 per week [facility] Utilities Answer Date Recorded In the past 12 months has [employer], gas, oil, or water in[employer] threatened to shut off services in your home? No 04/08/2025 Social Connection and Isolat ion Panel [NHANES] Answer Date Recorded Frequency of Communication w ith Friends and Family Three times a week 07/16/2019 Frequency of Social Gatherin gs with Friends and Family Once a week 07/16/2019 Attends [employer] Services More than 4 times per year [...] Living Expenses Not hard at all 06/17/2019 [facility] [place] of Occupat ional Health - Occupational Stress [...] Master's degree (e.g., MA, MS, Viraj, MEd, WAITER/WAITRESS SECOND CLASS, SIMONE) 06/16/2019 Comments Unknown Sex and Gender Information Value Date Recorded Sex Assigned at Female 05/12/2018 9:12 AM CDT Legal Sex Female 5:22 PM ORTHOTIST OR PROSTHETIST Gender Identity Female 05/12/2018 9:12 AM CDT Sexual Orientation Straight 05/12/2018 9: 12 AM CDT documented as of this encounter Miscellaneous Notes * Telephone Encounter - Foster Harris - 04/08/2025 2:12 PM CDT Orders have been placed for this patient to do locally. Send to:Fax to facility Name of facility: [facility] Fax or Date of Orders/Encounter: 04/08/25 Provider: Qian Marie Lab order(s) to be sent: Home Overnight Oximetry [[id number]] Imaging order(s)to be sent: Infusion order(s) to be sent: Additional information: Upon receiving, please call patient to schedule at their convenience. documented in this encounter Plan of Treatment Upcoming Encounters Date Type Department Care Team (Late st Contact Info) Description 04/26/2025 8:00 AM CDT Telemedicine Division of Nephrology and Hypertension in [place], [place] [address] [place] [address] Ángel Cleveland M.B.B.S. [address] [place] [address] Sylvia Jackman, RDN, LD [address] [place] [address] documented as of this encounter Visit Diagnoses Not on filedocumented in this encounter Care Teams Credit Control Assistant Relationship Specialty Start Date End Date Elsewhere, Pcp PCP - General Family Medicine 07/16/18 documented as of this encounter
--- OUTSIDE RECORDS SUMMARY | 2025-04-11 12:30 | XMS_ITS | Encounter Summary ---
Author Organization [facility] Address [address] [place] [address] Care Team Providers Care Field Marketing Coordinator Name Role Phone Elsewhere, Pcp Primary Care Provider Unavailabl e Reason for Referral * Outpatient (Routine) - Authorized Specialty Diagnoses / Procedures Referred By Parul chauhan Referred To Contact Nephrology and Hypertension Diagnoses Glomerulonephritis Immunoglobulin A (IgA Nephropathy) Ángel Cleveland M.B.B.S. [address] [place] [address] Phone: tel: fax: Qian Marie M.D. 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 [address] [place] [address] Phone: tel: fax: [facility] Referral ID Status Reason Start Date Expiration Date V isits Requested Visits Authorized [id number] Authorized 04/08/2025 10/08/2026 1 1 Scheduling Instructions This appointment should ideally be scheduled AFTER the Continuous Drier Operator Consults, but must at least be scheduled 48 hours after 24-hour urine collection is complete. Virtual visit is acceptable for this dietitian visit. 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 [address] [place] [address] Phone: tel: fax: [facility] Referral ID Status Reason Start Date Expiration Date Visits Re quested Visits Authorized [id number] Closed 03/24/2025 09/23/2026 1 1 Encounter Details Date Type Department Care Team (Latest Contact Info) Description 04/08/2025 1:00 PM CDT Comprehensive Visit Division of Nephrology and Hypertension in [place], [place] [address] [place] [phone] Qian Marie M.D. 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 of Occupat ional Health - [...] Master's degree (e.g., MA, MS, Viraj, MEd, MATTRESS FILLING MACHINE TENDER, SIMONE) 06/16/2019 Comments Unknown Sex and Gender Information Value Date Recorded Sex Assigned at Female 05/12/2018 9:12 AM CDT Legal Sex Female 5:22 PM ATTENDANT CHILD ACTIVITY Gender Identity Female 05/12/2018 9:12 AM CDT [...] 5. We will refer patient to a infrastructure architect/dietitian for additional recommendations regarding low protein diet [...] recommendations. This can be performed either in [place] or locally with her primary care provider. [...] blood pressure, patient remember referred to a pediatric radiologist and perform any kidney biopsy and being [...] evaluated for shortness of breath in [facility] in 2012, status post ENT subglottic stenosis [...] Total, S 1.0 Recent Labs 04/06/25 0526 [id number] ASSESSMENT / PLAN IgA nephropathy Proteinuria [...] additionally patient we will meet with a dietitian/infrastructure architect for additional management recommendations. Noted elevated hemoglobin [...] Telemedicine Division of Nephrology and Hypertension in [place], [place] [address] [place] [address] Ángel Cleveland M.B.B.S. [address] [place] [phone] Sylvia Jackman, VIRIDIANA, LD [address] [place] [phone] Scheduled Orders Name Type Priority Associated Diagnoses [...] Snoring documented in this encounter Care Teams Field Marketing Coordinator Relationship Specialty Start Date End Date Elsewhere, Pcp PCP - General Family Medicine 07/16/18 documented as of this encounter
--- OUTSIDE RECORDS SUMMARY | 2025-04-11 12:30 | XMS_ITS | Encounter Summary ---
Author Organization [facility] Address [address] [place] [address] Care Team Providers Care Assembler [employer] Name Role Phone Elsewhere, Pcp Primary Care Provider Unavailabl e Encounter Details Date Type Department Care Team (Latest Contact Info) Description 03/24/2025 2:30 PM CDT - 03/24/2025 11:59 PM CDT Hospital Encounter Department of Laboratory Medicine and Pathology, [facility] in [place], [place] [address] [place] [address] Qian Marie M.D. 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 of Occupat ional [facility] - Occupational Stress Questionnaire Answer Date [...] your living situation today? I have a [facility] place to live 03/30/2024 Education Answer Date Recorded What is the highest level of school you have completed or the highest degree you have received? Master's degree (e.g., MA, MS, Viraj, MEd, PICKER OPERATOR, SIMONE) 06/16/2019 Comments Unknown Sex and Gender Information Value Date Recorded Sex Assigned at Female 05/12/2018 9:12 AM CDT Legal Sex Female 5:22 PM EXERCISE EQUIPMENT SPECIALIST Gender Identity Female 05/12/2018 9:12 AM CDT [...] Telemedicine Division of Nephrology and Hypertension in [place], [place] [address] [place] [address] Ángel Cleveland M.B.B.S. [address] [place] [address] Sylvia Jackman, RDN, LD [address] [place] [phone] documented as of this encounter Procedures Procedure [...] M.D. LAB URINE ORDERABLES Final Resul t [facility] [address] [place] [address], [facility] [address] [place] [address] * (ABNORMAL) Protein, Total, 24 hour, Urine [...] URINE ORDERABLES Final Resul t [facility] [address] [place] [address], [facility] [address] [place] [address] * (ABNORMAL) Creatinine Clearance, Serum and 24 [...] 04/07/2025 1:31 PM CDT Narrative [facility] - 04/07/2025 2:41 PM CDT Specimen Information: Specimen ID: [id number] Specimen Type: Urine Specimen Collection Start Date: 04/06/2025 5:26 AM Specimen Received Date: 04/07/2025 1:31 PM Specimen ID: [id number] Specimen Type: Blood Specimen Collection Start Date: 04/05/2025 8:49 AM Specimen Received Date: 04/07/2025 1:42 PM Qian Marie M.D. 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
[2025-04-11 12:35] LABS: Troponin I* < 0.01 ng/mL (0.01-0.04)
[2025-04-11 12:38] LABS: Anion Gap 6 mEq/L (7-15); Sodium* 140 mmol/L (135-149)
[2025-04-11 12:50] LABS: Appearance Urine Clear (Clear); Bilirubin Urine Negative (Negative); Blood Urine Trace-intact (Negative); Color Urine Yellow (Yellow); Glucose Urine Negative (Negative); Ketones Urine Negative (Negative); Leukocyte Esterase Urine Negative (Negative); Nitrite Urine Negative (Negative); Protein Urine 1+ (Negative); Specific Gravity Urine 1.015 (1.000-1.030); Urobilinogen Urine 0.2 (0.2-1.0)
--- NOTE | 2025-04-11 12:53 | ED.GENADULT ---
HPI - General Adult General Chief complaint: Dizziness/Vertigo Stated complaint: Feeling light headed, dizzy wants BP checked Time Seen by Provider: 04/11/25 11:11 Source: patient Mode of arrival: ambulatory Limitations: no limitations History of Present Illness HPI narrative: Patient is a 45-year-old female presenting to the emergency department for an episode lightheadedness. She has a history of IgA nephropathy. She states she was driving to work when she became lightheaded and felt like she was going to pass out. She states she was very shaky at that time. She went home and started to feel better but still not completely back to normal. She was concerned she could be having blood pressure issues as she has IgA nephropathy which causes hypertension. She recently had some changes to her medications and the trigger of hydrocortisone and upped her candesartan. This is the 3rd time this has happened in the past month. Has never had these issues prior to that. 1st occurrence was on 03/18 and was relatively similar. Second occurrence was on 03/24 in occurred today after she drank alcohol since she thought it was related to the alcohol. Was doing well up until today. Does not talk to her providers yet about the symptoms. Feels asymptomatic at this time. No other concerns noted. Denies chest pain, shortness of breath, abdominal pain, headache, dizziness, fevers, chills, diarrhea constipation. Related Data Home Medications ?Medication ?Instructions ?Recorded ?Confirmed candesartan 4 mg tablet 8 mg PO QDAY 08/12/22 04/11/25 cetirizine 10 mg tablet (Zyrtec) 10 mg PO QDAY PRN 08/12/22 04/11/25 hydrochlorothiazide 12.5 mg tablet 12.5 mg PO Q OTHER DAY 08/12/22 04/11/25 Previous Rx's ?Medication ?Instructions ?Recorded norethindrone (contraceptive) 0.35 0.35 mg PO DAILY #84 tabs 06/22/24 mg tablet albuterol sulfate 90 mcg/actuation 2 puff inhalation Q4-6H PRN 12/02/24 aerosol inhaler shortness of breath or wheezing #8.5 grams Allergies Allergy/AdvReac Type Severity Reaction Status Date / Time erythromycin base Allergy Mild Rash Verified 12/17/24 14:53 midazolam Allergy Mild Hypotension Verified 12/17/24 14:53 Sulfa (Sulfonamide Allergy Mild Verified 12/17/24 14:53 Antibiotics) Review of Systems Status of ROS: Reports: 10 or more systems reviewed and unremarkable except as noted in History and below PFSH PFSH Medical History IBS (irritable bowel syndrome) ?K58.9 - Irritable bowel syndrome, unspecified (ICD-10) Foot pain, left ?M79.672 - Pain in left foot (ICD-10) Hx gestational diabetes ?Z86.32 - Personal history of gestational diabetes (ICD-10) Heart murmur ?R01.1 - Cardiac murmur, unspecified (ICD-10) Surgical History Status post operation on nasal septum (11/28/11) ?Z98.890 - Other specified postprocedural states (ICD-10) Hx of ventricular septal defect ?Z87.74 - Personal history of (corrected) congenital malformations of heart and circulatory system (ICD-10) Family History Maternal Grandmother Stroke Father High blood pressure Diabetes FH: mental illness Mother FH: mental illness Social History What is your current living situation?: I presently have a place to live Problems where you live: no known problems In the past 12 months, utilities in danger of being shut off: no In past 12 months, lack of transportation kept you from medical appts, meetings, work, or getting things needed for daily living: no In the past 12 mos, have been you worried that your food would run out before you had money to buy more?: never true In the past 12 mos, the food you bought just didn't last and you didn't have money to buy more?: never true Smoking Status: Never smoker Do you use any of these nicotine containing products: None How often do you have a drink containing alcohol: 2-4 times a month How many standard drinks containing alcohol do you have on a typical day: 1 or 2 How often do you have six or more drinks on one occasion: Never AUDIT-C Alcohol total score: 2 Non-prescribed substance use: denies use How often does anyone, including family, friends and others, physically hurt you: never How often does anyone, including family, friends and others, insult or talk down to you: never How often does anyone, including family, friends and others, threaten you with harm: never How often does anyone, including family, friends and others, scream or curse at you: never service: No Exam Narrative: Exam Narrative: Const: Well-nourished, Well-developed, in no distress Eyes: PERRL, no conjunctival injection, and symmetrical lids HENT: Atraumatic external nose and ears. Moist mucous membranes. Neck: Symmetric, trachea midline, No thyromegaly. CVS: RRR, No murmurs or gallops. Peripheral pulses 2+ and equal in all extremities RESP: Unlabored respiratory effort. Clear to auscultation bilaterally. GI: Nontender/Nondistended, No rebound or guarding. MSK:Extremities w/o deformity, Normal Active ROM Skin: Warm, Dry. No rashes or lesions. Neuro: Normal Muscle tone, No focal neurological deficits. Psych: Awake, Alert, & Oriented x3. Appropriate mood and affect. Const: Vital Signs, click to edit/add: Vital Signs - 24 hr 04/11/25 11:01 04/11/25 13:05 Temperature 98.1 F Pulse Rate [Pulse Oximeter] 71 62 Respiratory Rate 16 14 Blood Pressure [Ri ght Upper Arm] 143/87 H 137/87 Pulse Oximetry 100 99 Oxygen Delivery Me thod Room Air Room Air Course Vital Signs Vital signs: Initial Vital Signs Temperature 98.1 F 04/11/25 11:01 Temperature Source Temporal Artery Scan 04/11/25 11:01 Pulse Rate 71 04/11/25 11:01 Respiratory Rate 16 04/11/25 11:01 Blood Pressure 143/87 H 04/11/25 11:01 Blood Pressure Mean 105 04/11/25 11:01 Blood Pressure Position Sitting 04/11/25 11:01 Pulse Oximetry 100 04/11/25 11:01 Oxygen Delivery Method Room Air 04/11/25 11:01 Vital Signs Temperature 98.1 F 04/11/25 11:01 Pulse Rate 71 04/11/25 11:01 Respiratory Rate 16 04/11/25 11:01 Blood Pressure 143/87 H 04/11/25 11:01 Pulse Oximetry 100 04/11/25 11:01 Oxygen Delivery Method Room Air 04/11/25 11:01 Temperature 98.1 F 04/11/25 11:01 Pulse Rate 62 04/11/25 13:05 Respiratory Rate 14 04/11/25 13:05 Blood Pressure 137/87 04/11/25 13:05 Pulse Oximetry 99 04/11/25 13:05 Oxygen Delivery Method Room Air 04/11/25 13:05 Medical Decision Making MDM Narrative Medical decision making narrative: Patient is a 45-year-old female presenting to the emergency department for what sounds like a near syncopal episode. Will do viral swabs to check for lack cause. Also EKG and troponin to look for any cardiac abnormalities. Will check electrolytes, CBC, BMP. With her IgA nephropathy will do urinalysis to see if there is any concerning abnormalities there. Chest x-ray ordered to look for any intrathoracic abnormalities. Also add on a D-dimer improve. Lab work returned showing no acute concerning abnormalities. On my review vital signs are stable throughout time in in the emergency department. Oximetry stayed in the mid to high 90s. nuclear monitoring technician showed no concerning arrhythmias. EKG shows no acute concerning abnormalities. She is feeling well at this time. Chest x-ray reviewed by myself the radiologist shows no acute concerning abnormalities. I cannot say exactly was causing symptoms by did inform her she should have close follow-up with her foot setter and primary care provider about the symptoms. She is agreeable to this plan. Lab Data Labs: Lab Results 04/11/25 04/11/25 Range/Units 11:56 12:25 WBC 7.47 (4.50-11.00) K/uL RBC 4.78 (4.00-5.20) m/uL Hgb 14.7 (12.0-16.0) gm/dL Hct 44.5 (33.0-51.0) % MCV 93 (80-100) fL MCH 31 (26-34) pg MCHC 33 (32-36) gm/dL RDW Coeff of Van 12.2 (11.5-15.5) % Plt Count 248 (140-440) K/uL Neut % (Auto) 71.6 (42.0-72.0) % Lymph % (Auto) 19.9 L (20-44) % Stearns % (Auto) 6.4 (0.0-11.0) % Eos % (Auto) 1.3 (0.0-7.0) % Baso % (Auto) 0.5 (0.0-3.0) % Neut # (Auto) 5.34 (1.7-7.0) K/uL Lymph # (Auto) 1.50 (0.90-2.90) K/uL Stearns # (Auto) 0.50 (0.00-0.90) K/UL Eos # (Auto) 0.10 (0.00-0.50) K/uL Baso # (Auto) 0.04 (0.00-0.30) K/uL Abs Immat Gran (auto) 0.02 (0.00-0.30) K/uL Imm/Tot Granulo (auto) 0.3 % D-Dimer Quant (PE/DVT) < 0.27 (0.00-0.50) ug/ml Sodium 140 (135-149) mmol/L Potassium 4.5 (3.6-5.1) mmol/L Chloride 109 (96-114) mmol/L Carbon Dioxide 25 (20-32) mmol/L Anion Gap 6 L (7-15) mEq/L BUN 14 (5-24) mg/dL Creatinine 1.0 (0.5-1.5) mg/dL Estimated Creat Clear 68.36 Estimated GFR 70 ml/min Glucose 113 (60-115) mg/dL Calcium 9.3 (8.4-10.6) mg/dL Magnesium 2.1 (1.5-2.6) mg/dL Troponin I < 0.01 (0.01-0.04) ng/mL Urine Color Yellow (Yellow) Urine Appearance Clear (Clear) Urine pH 7.0 (5.0-8.5) Ur Specific [place] 1.015 (1.000-1.030) Urine Protein 1+ A (Negative) Urine Glucose (UA) Negative (Negative) Urine Ketones Negative (Negative) Urine Blood Trace-intact A (Negative) Urine Nitrite Negative (Negative) Urine Bilirubin Negative (Negative) Urine Urobilinogen 0.2 (0.2-1.0) Ur Leukocyte Esterase Negative (Negative) Urine RBC 0-2 (0-2) Urine WBC 0-2 (0-5) Ur Squamous Epith Cells None (None-Few) Urine Bacteria None (None) Imaging Data Chest x-ray: Attestation: I have reviewed the pertinent imaging results. Radiologist's impression: No evidence of active pulmonary disease. Dictated by Ge Steen MD @ 04/11/2025 1:47:31 PM ECG Data Attestation: I personally reviewed and interpreted this ECG as follows: Prior ECG tracings: not available for review Interpretation: Normal sinus rhythm with a rate of 67 beats per minute, first-degree AV block, normal QT interval, normal QRS, incomplete right bundle branch block, left axis deviation, no ST or T-wave abnormalities. Discharge Plan Discharge Clinical Impression: Near syncope Patient Disposition: Home, Self-Care Condition: Stable Instructions: Near Syncope (ED) Additional Instructions: It sounds like you are having near syncopal episodes. I do recommend he have close follow-up with your primary care provider and possibly foot setter also as this can be a blood pressure or heart issue. Return to emergency department for new or worsening symptoms. We will call you back with results of the viral swab if it is positive. Prescriptions: No Action norethindrone (contraceptive) 0.35 mg tablet 0.35 mg PO DAILY Qty: 84 4RF albuterol sulfate 90 mcg/actuation HFA aerosol inhaler 2 puff inhalation Q4-6H PRN (Reason: shortness of breath or wheezing) Qty: 8.5 0RF candesartan 4 mg tablet 8 mg PO QDAY hydrochlorothiazide 12.5 mg tablet 12.5 mg PO Q OTHER DAY cetirizine [Zyrtec] 10 mg tablet 10 mg PO QDAY PRN Follow Up/Referrals: Caity Lundberg, GEOSPATIAL INTELLIGENCE ANALYST [Primary Care Provider] - Stand Alone Forms: [employer] Info Instructions
[2025-04-11 12:54] LABS: RBC Urine 0-2 (0-2); WBC Urine 0-2 (0-5)
--- NOTE | 2025-04-11 12:57 | CRLHL7_ITS ---
For Patients: As a result of the Century Cures Act, medical imaging exams and procedure reports are released immediately into your electronic medical record. You may view this report before your referring provider. If you have questions, please contact your health care provider. INDICATION: Near syncope. History of VSD repair COMPARISON: December 13, 2024 TECHNIQUE: PA and lateral views of the chest were acquired FINDINGS: TUBES AND LINES: None. HEART AND MEDIASTINUM: The heart size is normal. The mediastinal contour appears normal for patient age.Sternotomy. LUNGS AND PLEURAL SPACES: The lungs appear normal.The pleural spaces are unremarkable. OSSEOUS STRUCTURES: Age-appropriate appearance. No acute focal finding. IMPRESSION: No evidence of active pulmonary disease. Dictated by Ge Steen MD @ 04/11/2025 1:47:31 PM (Electronically Signed)
[2025-04-11 13:05] VITALS: BP 137/87; PULSE 62; RESP 14; O2SAT 99
[2025-04-11 13:46] LABS: D Dimer Quantitative* < 0.27 ug/ml (0.00-0.50)
[2025-04-11 14:01] VITALS: BP 125/95; PULSE 70; RESP 16
[2025-04-11 15:21] LABS: PCR FLU A Negative PCR FLU A (Negative); PCR FLU B Negative PCR FLU B (Negative); PCR RSV Negative PCR RSV (Negative); SARS PCR* Negative SARS-CoV-2 (Negative)
== END 2025-04-11 14:02 | disposition home or self-care (01) ==
PROVIDERS: Emergency Provider Student in an Organized Health Care Education/Training Program; PCP Registered Nurse
DX: R55 Syncope and collapse (principal); N02.B1 Recurrent and persistent immunoglobulin A nephropathy with glomerular lesion
CPT/HCPCS: 36415; 71046; 80048; 81001; 83735; 84484; 85025; 85379; 87631; 93005; 99284; 99285

== ENCOUNTER 2025-05-20 10:33 | Outpatient (CLI) | payer OTHER, SELFPAY ==
--- OUTSIDE RECORDS SUMMARY | 2025-04-08 07:51 | XMS_ITS | Encounter Summary ---
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 [address] [place] [address] Phone: tel: fax: [facility] Referral ID Status Reason Start Date Expiration Date Visits Re quested Visits Authorized [id number] Closed 03/24/2025 06/24/2026 1 1 Encounter Details Date Type Department Care Team (Latest Contact Info) Description 04/08/2025 7:51 AM CDT - 04/08/2025 9:09 AM CDT Hospital Encounter Department of Radiology, [facility], in [place], [place] [address] [place] [address] Qian Marie M.D. 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 No 04/08/2025 Social Connection and Isolat ion Panel [NHANES] Answer Date Recorded Frequency of Communication w ith Friends and Family Three times a week 07/16/2019 Frequency of Social Gatherin gs with Friends and Family Once a week 07/16/2019 Attends Zoroastrianism Services More than 4 times per year 07/16/2019 Active Member of Clubs or Organizations No 07/16/2019 Attends Club or Organization Meetings Patient de clined 07/16/2019 Marital Status 07/16/2019 AUDIT-C Answer Date Recorded Frequency of Alcohol Consumption 2-4 times a mon 06/17/2019 Average Number of Drinks 1 or 2 019 Frequency of Binge Drinking Less than monthly Overall Financial Resource Strain (CARDIA) Answe r Date Recorded Difficulty of Paying Living Expenses Not hard at all 06/17/2019 [facility] [place] [facility] Occupat ional Health - Occupational Stress Questionnaire Answer Date Recorded Feeling of Stress Not at all 06/17/2019 Exercise Vital Sign Answer Date Recorde d On average, how many days pe r week do you engage in moderate to strenuous exercise (like a brisk walk)? 5 days 04/08/2025 On average, how many minutes do you engage in exercise at this level? 20 min 04/08/2025 Hunger Vital Sign Answer Date Recorded Within the past 12 months, y ou worried that your food would run out before you got the money to buy more. Never true 04/08/20 25 Within the past 12 months, t he food you bought just didn't last and you didn't have money to get more. Never true 04/08/2025 PRAPARE - Transportation Answer Date Re corded In the past 12 months, has l ack of transportation kept you from medical appointments or from getting medications? No 08/2025 In the past 12 months, has l ack of transportation kept you from meetings, work, or from getting things needed for daily living? No 04/08/2025 Nutrition Answer Date Recorded On average, how many serving s of fruits and vegetables do you eat per day (serving size is equal to 1 cup or approximately the size of a tennis ball)? 0-2 04/08/2025 Dental Answer Date Recorded Dental: Regular Dentist Yes 04/07/20 Employment Answer Date Recorded Employment status Employed and actively working without restrictions 04/08/2025 Housing Stability Answer Date Recorded What is your living situation today? I have a [facility] place to live 04/08/2025 Education Answer Date Recorded What is the highest level of school you have completed or the highest degree you have received? 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 fluticasone furoate (Arnuity Ellipta) 100 mcg/actuation diskus inhaler Inhale 1 puff daily. 30 each 11 03/01/2025 03/01/2026 norethindrone (NORLYDA) 0.35 mg tablet Take 1 tablet by mouth daily. 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 No renal artery stenosis. 2. No hydronephrosis. Narrative 04/08/2025 9:43 AM CDT EXAM: US KIDNEYS WITH RENAL ARTERY DOPPLER Exam performed with color and spectral Doppler analysis. COMPARISON: None. FINDINGS: Right kidney: Normal echogenicity and parenchymal thickness. No hydronephrosis. Right renal artery: Negative for stenosis; single vessel well seen. Left kidney: Normal echogenicity and parenchymal thickness. No hydronephrosis. Left renal artery: Negative for stenosis; single vessel well seen. Right Renal Measurements: Right renal length: 11.4 cm Right segmental artery - upper pole RI: 0.59 Right segmental artery - lower pole RI: 0.63 Right renal artery origin PSV: 61 cm/s Right renal artery prox PSV: 104 cm/s Right renal artery mid PSV: 120 cm/s Right renal artery distal PSV: 112 cm/s Left Renal Measurements: Left renal length: 11.1 cm Left segmental artery - upper pole RI: 0.65 Left segmental artery - lower pole RI: 0.61 Left renal artery origin PSV: 91 cm/s Left renal artery prox PSV: 81 cm/s Left renal artery mid PSV: 96 cm/s Left renal artery distal PSV: 75 cm/s Aorta: The distal abdominal aorta is poorly visualized sonographically due to overlying bowel gas. Bladder: Normal where seen. Procedure Note Millicent Moore M.D. - 04/08/2025 EXAM: US KIDNEYS WITH RENAL ARTERY DOPPLER Exam performed with color and spectral Doppler analysis. COMPARISON: None. FINDINGS: Right kidney: Normal echogenicity and parenchymal thickness. Nohydronephrosis. Right renal artery: Negative for stenosis; single vessel well seen. Left kidney: Normal echogenicity and parenchymal thickness. Nohydronephrosis. Left renal artery: Negative for stenosis; single vessel well seen. Right Renal Measurements: Right renal length: 11.4 cm Right segmental artery - upper pole RI: 0.59 Right segmental artery - lower pole RI: 0.63 Right renal artery origin PSV: 61 cm/s Right renal artery prox PSV: 104 cm/s Right renal artery mid PSV: 120 cm/s Right renal artery distal PSV: 112 cm/s Left Renal Measurements: Left renal length: 11.1 cm Left segmental artery - upper pole RI: 0.65 Left segmental artery - lower pole RI: 0.61 Left renal artery origin PSV: 91 cm/s Left renal artery prox PSV: 81 cm/s Left renal artery mid PSV: 96 cm/s Left renal artery distal PSV: 75 cm/s Aorta: The distal abdominal aorta is poorly visualized sonographically dueto overlying bowel gas. Bladder: Normal where seen. IMPRESSION: 1. No renal artery stenosis. 2. No hydronephrosis. us Qian Marie M.D. 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
--- OUTSIDE RECORDS SUMMARY | 2025-04-08 09:10 | XMS_ITS | Encounter Summary ---
Author Organization [facility] Address [address] [place] [address] Care Team Providers Care Yield Analyst Name Role Phone Elsewhere, Pcp Primary Care Provider Unavailabl e Encounter Details Date Type Department Care Team (Latest Contact Info) Description 04/08/2025 9:10 AM CDT - 04/08/2025 11:59 PM CDT Hospital Encounter Department of Laboratory Medicine and Pathology, [facility] in [place], [place] [address] [place] [address] Qian Marie M.D. 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) Discharge Disposition: Home or Self Care Social History Tobacco Use Types Packs/Day Years Used Date Smoking Tobacco: Never Smokeless Tobacco: Never Alcohol Use Standard Drinks/Week Comments Yes 2 (1 standard drink = 0.6 oz pur e alcohol) 1-2 per week [facility] Utilities Answer Date Recorded In the past [...] and Family Once a week 07/16/2019 Attends Faith Services More than 4 times per year 07/16/2019 Active Member of Clubs or Organizations No 07/16/2019 Attends Club or Organization Meetings Patient de clined 07/16/2019 Marital Status 07/16/2019 AUDIT-C Answer Date Recorded Frequency of Alcohol Consumption 2-4 times a mon th 06/17/2019 Average Number of Drinks 1 or 2 019 Frequency of Binge Drinking Less than monthly Overall Financial Resource Strain (CARDIA) Answe r Date Recorded Difficulty of Paying Living Expenses Not hard at all 06/17/2019 [facility] of [facility]at ional [facility] - Occupational Stress Questionnaire Answer Date Recorded [...] Date Recorded Dental: Regular Dentist Yes 04/07/20 24 Employment Answer Date Recorded Employment status Employed and actively working without restrictions 04/08/2025 Housing Stability Answer Date Recorded What is your living situation today? I have a [facility] place to live 04/08/2025 Education Answer Date Recorded What is the highest level of school you have completed or the highest degree you have received? 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 fluticasone furoate (Arnuity Ellipta) 100 mcg/actuation diskus inhaler Inhale 1 puff daily. 30 each 11 03/01/2025 6 norethindrone (NORLYDA) 0.35 mg tablet Take 1 tablet by mouth daily. candesartan (Atacand) 4 mg tabletIndications:Gl omerulonephritis Immunoglobulin A (IgA Nephropathy) Take 2 tablets (8 mg total) by mouth daily. 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) PARATHYROID HORMONE (PTH), S Routine 04/08/2025 9:52 AM CDT 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) COMPREHENSIVE METABOLIC PANEL, S/P Routine 04/08/2025 9:52 AM CDT 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) documented in this encounter Results * (ABNORMAL) Comprehensive Metabolic Panel (04/08/2025 9:52 AM CDT) [facility] Potassium, S 4.5 3.6 - 5.2 mmol/L 04/08/2025 10:55 AM CDT DTL Sodium, S 141 135 - 145 mmol/L 04/08/2025 10:55 AM CDT DTL Chloride, S 104 98 - 107 mmol/L 04/08/2025 10:55 AM CDT DTL Bicarbonate, S 27 22 - 29 mmol/L 04/08/2025 10:55 AM CDT DTL Anion Gap 10 7 - 15 04/08/2025 10:55 AM CDT DTL BUN (Blood Urea Nitrogen), S 23(H) 6 - 21 mg/dL 04/08/2025 10:55 AM CDT DTL Creatinine 1.19(H) 0.59 - 1.04 mg/dL 04/08/2025 10:55 AM CDT DTL Estimated GFR (eGFR) 57(L) >=60 mL/min/BS A 04/08/2025 10:55 AM CDT DTL Comment: Estimated GFR calculated using the 2020 CKD_EPI creatinine equation. Calcium, Total, S 10.1(H) 8.6 - 10.0 mg/dL 04/08/2025 10:55 AM CDT DTL Glucose, S 123 70 - 140 mg/dL 04/08/2025 10:55 AM CDT DTL Protein, Total, S 7.2 6.3 - 7.9 g/dL 04/08/2025 10:55 AM CDT DTL Albumin, S 4.5 3.5 - 5.0 g/dL 04/08/2025 10:55 AM CDT DTL Aspartate Aminotransferase (AST), S 14 8 - 43 U/L 04/08/2025 10:55 AM CDT DTL Alkaline Phosphatase, S 59 35 - 104 U/L 04/08/2025 10:55 AM CDT DTL Alanine Aminotransferase (ALT), S 22 7 - 45 U/L 04/08/2025 10:55 AM CDT DTL Bilirubin, Total, S 1.0 0.0 - 1.2 mg/dL 04/08/2025 10:55 AM CDT DTL Blood (Blood, Venous) 04/08/2025 9:52 AM CDT 04/08/2025 10:25 AM CDT Qian Marie M.D. LAB BLOOD ADD-ON Final Result [facility] [address] [place] [address], [facility] [address] [place] [address] * 1,25-Dihydroxyvitamin D (04/08/2025 9:52 AM CDT) 1, 25 DIHYDROXYVITAMIN D, S 35 18 - 78 pg/mL 04/11/2025 3:14 PM CDT [facility] Comment: ----ADDITIONAL INFORMATION---- This test was developed and its performance characteristics determined by [facility] in a manner consistent with CLIA requirements. This test has not been cleared or approved by the U.S. Food and Drug Administration. Blood (Blood, Venous) 04/08/2025 9:52 AM CDT 04/08/2025 12:21 PM CDT Qian Marie M.D. LAB BLOOD ADD-ON Final Result Performing Organization Address City/[facility]/ZIP Co de Phone Number [facility] [address] [place] [address] [facility] [address] [place] [address] [place] [address] * Phosphorus Inorganic (04/08/2025 9:52 AM CDT) Phosphorus (Inorganic), S 3.0 2.5 - 4.5 mg/dL 04/08/2025 10:55 AM CDT DT Blood (Blood, Venous) 04/08/2025 9:52 AM CDT 04/08/2025 10:25 AM CDT Qian Marie M.D. LAB BLOOD ADD-ON Final Result [facility] [address] [place] [address], [facility] [address] [place] [address] * 25-Hydroxyvitamin D2 and D3 (04/08/2025 9:52 AM CDT) 25-Hydroxy D2 <4.0 ng/mL 04/12/2025 2:44 PM CDT SDS 25-Hydroxy D3 28 ng/mL 04/12/2025 2:44 PM CDT SDS 25-Hydroxy D Total 28 ng/mL 2024 2:44 PM CDT [facility] Comment: ----REFERENCE VALUE---- 25-HYDROXY D TOTAL (D2+D3) Optimum levels in the healthy population are 20-50. ----ADDITIONAL INFORMATION---- This test was developed and its performance characteristics determined by [facility] in a manner consistent with CLIA requirements. This test has not been cleared or approved by the U.S. Food and Drug Administration. Blood (Blood, Venous) 04/08/2025 9:52 AM CDT 04/08/2025 12:29 PM CDT Qian Marie M.D. LAB BLOOD ADD-ON Final Result [facility] [address] [place] [address] [facility] [address] [place] [address] [place] [address] * Parathyroid Hormone (PTH) (04/08/2025 9:52 AM CDT) Parathyroid Hormone (PTH), S 56 15 - 65 pg/mL 04/08/2025 10:55 AM CDT DT Blood (Blood, Venous) 04/08/2025 9:52 AM CDT 04/08/2025 10:25 AM CDT Qian Marie M.D. LAB BLOOD ADD-ON Final Result 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
--- OUTSIDE RECORDS SUMMARY | 2025-04-08 13:00 | XMS_ITS | Encounter Summary ---
Author Organization [facility] Address [address] [place] [id number] Care Team Providers Care Meter/Relay Craftsman Name Role Phone Elsewhere, Pcp Primary Care Provider Unavailabl e Reason for Referral * Outpatient (Routine) - Authorized Specialty Diagnoses / Procedures Referred By Parul chauhan Referred To Contact Nephrology and Hypertension Diagnoses Glomerulonephritis Immunoglobulin A (IgA Nephropathy) Ángel Cleveland M.B.B.S. [address] [place] [phone] Phone: tel: fax: Qian Marie M.D. 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 [address] [place] [address] Phone: tel: fax: [facility] Referral ID Status Reason Start Date Expiration Date Visits Re quested Visits Authorized [id number] Closed 04/08/2025 10/08/2026 1 1 Scheduling Instructions This appointment should ideally be scheduled AFTER the Mental Health Practitioner Consults, but must at least be scheduled 48 hours after 24-hour urine collection is complete. Virtual visit is acceptable for this dietitian visit. 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 [address] [place] [address] Phone: tel: fax: [facility] Referral ID Status Reason Start Date Expiration Date Visits Re quested Visits Authorized [id number] Closed 03/24/2025 09/23/2026 1 1 Encounter Details Date Type Department Care Team (Latest Contact Info) Description 04/08/2025 1:00 PM CDT Comprehensive Visit Division of Nephrology and Hypertension in [place], [place] [address] [place] [phone] Qian Marie M.D. 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 No 04/08/2025 Social Connection and Isolat ion Panel [NHANES] Answer Date Recorded Frequency of Communication w ith Friends and Family Three times a week 07/16/2019 Frequency of Social Gatherin gs with Friends and Family Once a week 07/16/2019 Attends [employer] Services More than 4 times per year 07/16/2019 Active Member of Clubs or Organizations No 07/16/2019 Attends Club or Organization Meetings Patient sepulveda 07/16/2019 Marital Status 07/16/2019 AUDIT-C Answer Date Recorded Frequency of Alcohol Consumption 2-4 times a mon th 06/17/2019 Average Number of Drinks 1 or 2 019 Frequency of Binge Drinking Less than monthly Overall Financial Resource Strain (CARDIA) Answe r Date Recorded Difficulty of Paying Living Expenses Not hard at all 06/17/2019 [facility] - Occupational Stress [...] your living situation today? I have a st mini place to live 04/08/2025 Education Answer Date Recorded What is the highest level of school you have completed or the highest degree you have received? 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, SIMONE) 06/16/2019 Comments Unknown Sex and Gender Information Value Date Recorded Sex Assigned at Female 05/12/2018 9:12 AM CDT Legal Sex Female 5:22 PM PLATINUMSMITH Gender Identity Female 05/12/2018 9:12 AM CDT Sexual Orientation Straight 05/12/2018 9: 12 AM CDT documented as of this encounter Last Filed Vital Signs Vital Sign Reading Time Taken Comments Blood Pressure 114/79 04/08/2025 12:52 PM CDT Pulse 87 04/08/2025 12:52 PM CDT Temperature 36.9 C (98.4 F) 04/08/2025 12:52 PM CDT Respiratory Rate - - Oxygen Saturation - - Inhaled Oxygen Concentration - - Weight 91.7 kg (202 lb 4.4 oz) 04/08/2025 12:52 PM CDT Height 170.1 cm (5' 6.97) 04/08/2025 12:52 PM C DT Body Mass Index 31.71 04/08/2025 12:52 PM CDT documented in this encounter Patient Instructions * Patient Instructions* Ángel Cleveland M.B.B.SMatheus - 04/08/2025 1:00 PM CDT After visit recommendations: 1. Discontinue chlorthalidone due to the noted high serum calcium level. 2. Increase candesartan from 4 mg to 8 mg daily. 3. Continue monitoring your blood pressure at home with a blood pressure machine with a cough at the arm, we will recommend checking your blood pressure monitor for accuracy and calibration by bringing it to your primary care provider to make sure that it is accurate. Continue monitoring your bloodpressure at least 3 times weekly at the same time after resting for 3 minutes and keep the readings in a paper with a blood pressure and the heart rate until we see you next visit, goal blood pressures less than 130/80 with a out no lightheadedness or dizziness. If the blood pressure is lower than that you start to feel lightheaded or dizzy stopped your blood pressure medication and let us know. 4. Patient we will decrease her protein intake to only 0.8 g/kg body weight daily equivalent of about 70 g of protein daily and that can be divided into 3 meals. 5. We will refer patient to a civil preparedness training officer/dietitian for additional recommendations regarding low protein diet restriction currently she is doing amazing job with her salt intake goal is less than 2 g of salt per day. 6. Because of the elevated hemoglobin level we will recommend evaluation for sleep apnea, we will recommend doing a pulse oximetry overnight to see if there is any fluctuation in oxygen level while asleep. Previous abnormal patient should proceed with a sleep study to assess for additional recommendations. This can be performed either in [place] or locally with her primary care provider. 7. We will plan to have labs in 3 months and follow up office visit to discuss her monitoring labs and if there is any additional recommendations we need to do. documented in this encounter Consult Notes * Ángel Cleveland M.B.B.S. - 04/08/2025 1:00 PM CDT Glomerular Disease Consult Note Referring Provider: Atif Ambrose M.D. SUBJECTIVE CHIEF COMPLAINT / REASON FOR CONSULT IgA nephropathy HISTORY OF PRESENT ILLNESS Mrs. Vieira is a 45 y.o. female who is here for IgA nephropathy. 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 Patient reported and also from outside records noted for history of IgA nephropathy diagnosed at the age of [age] years old during episode of elevated blood pressure, patient remember referred to a customer development representative and perform any kidney biopsy and being told that she has IgA nephropathy, started CAROLYNE inhibitors with reported cough and then transitioned to ARBs and maintained on conservative medical management with RAAS inhibitors. Patient reportedno additional immunosuppression treatment history. During lifetime patient reported 3 pregnancies with the 1st in 2006 noted to be complicated with preeclampsia lower leg swelling patient was induced and delivered at 37 weeks and after which patient was maintained on chlorthalidone. During additionally patient antihypertensive medication managed accordingly. Patient denied anyhistory of eric hematuria, skin changes rash, history of kidney stones, previous history of long-term nicotine use. Outside records noted for urinalysis with persistent no hematuria and trace proteinuria with urine protein creatinine ratio of around less than 200s mg. Creatinine averaging 0.9 to 1.1. Patient was recently evaluated with the pulmonary clinic for subglottic stenosis history with a positive MPO associated vasculitis. Additional medical history include history of MPO associated ANCA vasculitis with subglottic stenosis when evaluated for shortness of breath in [facility] in 2012, status post ENT subglottic stenosis laser resection local injections and steroid therapy. Most recently noted patient noted to have worsening shortness of breath with exertion, MPO titer noted to be positive in 2018 and patient was started on oral prednisone 40 mg with a taper after evaluation with ENT noted for subglottic inflammation. Additional workup noted for acid reflux disease and started on o meprazole after ambulatory pH monitor. Reportedly patient have improved wean her symptoms while on oral prednisone therapy, eventually patient was tapered off steroids by 03/2018. Patient was monitored with pulmonology and ENT and was noted to be in clinical remission in until 2024, however noted slowly worsening creatinine at 1.2, MPO titers continued to be elevated, UA showed hemoglobinuria andproteinuria. PFTs showed normal results, no signs of MPO associated ANCA vasculitis activity recommended to continue monitoring with a no immunosuppression. patient was referred to Nephrology for additional management recommendations. Patient presented today reporting feeling well at baseline denying any lightheadedness or dizziness, shortness of breath or cough, chest pain or heart racing, change in bowel or urinary habits, change in urine color, lower leg swelling or skin rash. The following portions of the patient's history were reviewed and updated as appropriate: allergies, current medications, family history, medical history, social history, surgical history, and problem list. Medications Ordered Prior to Encounter[1] OBJECTIVE There were no vitals taken for this visit. PHYSICAL EXAMINATION General: Patient is alert, oriented x3, pleasant, not in distress. CVS: Regular rhythm. No added sounds RS: Clear to auscultation bilaterally. No added sounds Abdomen: Nondistended, positive bowel sounds, Soft, nontender. Extremity: No skin rash, no lower extremity swelling. DIAGNOSTICS Labs: Recent Results (from the past 72 hours) Protein, Total, 24 hour, Urine Collection Time: 04/06/25 5:26 AM Result Value Total Protein, 24 HR, U 432 (H) Collection Duration 24 Urine Volume 1200 Sodium, 24 hour, Urine Collection Time: 04/06/25 5:26 AM Result Value Sodium, 24 HR, U 80 Collection Duration 24 Urine Volume 1200 Parathyroid Hormone (PTH) Collection Time: 04/08/25 9:52 AM Result Value Parathyroid Hormone (PTH), S 56 Phosphorus Inorganic Collection Time: 04/08/25 9:52 AM Result Value Phosphorus (Inorganic), S 3.0 Comprehensive Metabolic Panel Collection Time: 04/08/25 9:52 AM Result Value Potassium, S 4.5 Sodium, S 141 Chloride, S 104 Bicarbonate, S 27 Anion Gap 10 BUN (Blood Urea Nitrogen), S 23 (H) Creatinine 1.19 (H) Estimated GFR (eGFR) 57 (L) Calcium, Total, S 10.1 (H) Glucose, S 123 Protein, Total, S 7.2 Albumin, S 4.5 Aspartate Aminotransferase (AST), S 14 Alkaline Phosphatase, S 59 Alanine Aminotransferase (ALT), S 22 Bilirubin, Total, S 1.0 Recent Labs 04/06/25 0526 [id number] ASSESSMENT / PLAN IgA nephropathy Proteinuria Hematuria CKD stage 3 Hypercalcemia in the setting of vitamin-D supplementation Hypertension History of MPO positive ANCA vasculitis limited to the subglottic region with a stenosis status post surgical resection 2012 and on remission Noted kidney function within baseline with creatinine 0.9 to 1.1, UA with proteinuria and hematuria, 24 hour urine collection noted for 400 mg of proteinuria. Noted outside records with UA with a persistently no hematuria and minimum trace proteinuria. After shared decision discussion we agreed to d iscontinue chlorthalidone due to the noted hypercalcemia, we will check vitamin- D level to assess for discontinuation of supplementation. We will increase candesartan to 8 mg daily. Patient we will monitor her blood pressure at home and calibrate her blood pressure monitor with her local provider for accuracy. We will plan to repeat labs with a follow up visit in 3 months to assess for additionalrecommendations. Patient recommended to adjust her protein intake to 0.8 g/kg body weight daily averaging about 70 gof protein daily additionally patient we will meet with a dietitian/civil preparedness training officer for additional management recommendations. Noted elevated hemoglobin with a history of subglottic stenosis, we will proceed with pulse oximetry to assess for obstructive sleep apnea. If abnormal patient should proceed with full sleep study. Patient/family questions answered to their satisfaction, verbalized understanding and agreement with the current management plan. Patient discussed with Dr. Cynthia BURNHAM. FIDEL Chin. Glomerular Disease Fellow, PGY-7 [1] Current Outpatient Medications on File Prior to Visit Medication Sig Dispense Refill amoxicillin-pot clavulanate (Augmentin) 875-125 mg per tablet Take 1 tablet by mouth 2 (two) times a day. candesartan (ATACAND) 4 mg tablet Take 1 tablet by mouth daily. cetirizine (ZyrTEC) 10 mg tablet Take 10 mg by mouth daily. cholecalciferol (Vitamin D3) 50 mcg (2,000 Unit) capsule Take 2,000 Units by mouth daily. (Patient taking differently: Take 2,000 Units by mouth as needed.) fluticasone furoate (Arnuity Ellipta) 100 mcg/actuation diskus inhaler Inhale 1 puff daily. 30 each11 fluticasone propionate (Flovent HFA) 110 mcg/actuation inhaler Inhale 2 puffs 2 (two) times a day. Rinse mouth with water after use to reduce aftertaste and incidence of candidiasis. Do not swallow. (Patient not taking: Reported on 03/21/2025) 12 g 11 hydroCHLOROthiazide (MICROZIDE) 12.5 mg capsule Take 12.5 mg by mouth as directed. Every other day (Patient taking differently: Take 12.5 mg by mouth every other day. Every other day) norethindrone (NORLYDA) 0.35 mg tablet Take 1 tablet by mouth daily. predniSONE (Deltasone) 20 mg tablet Take 20 mg by mouth daily. TAKE 2 TABLETS BY MOUTH DAILY FOR 3 DAYS THEN TAKE 1 TABLET BY MOUTH DAILY FOR 2 DAYS No current facility-administered medications on file prior to visit. Cosigned by Qian Marie M.D. at 04/08/2025 3:24 PM CDT Associated attestation - Qian Marie M.D. - 04/08/2025 3:24 PM CDT I saw and evaluated the patient, participating in the rivera portions of the service. I reviewed the resident/fellow???s note. I agree with the resident/fellow???s findings and plan. Patient is a 45-year-old female here for evaluation of IgA nephropathy. She recalls that she was diagnosed at age 15 while undergoing evaluation for VSD and was noted to be hypertensive. A kidney biopsy at that time was read as IgA nephropathy though we do not have access to this biopsy or the report. She was subsequently started on an CAROLYNE inhibitor that was subsequently switched to ARB. Later she was diagnosed with subglottic stenosis in the setting of positive MPO antibodies in 2018 for whichshe underwent resection and this has been well controlled since. She was treated with steroids but never require treatment with rituximab. She is referred here in the setting of rising creatinine and proteinuria. Her baseline creatinine is about 0.9-1. More recently was up to 1.24. During that time was noted that her calcium was also elevated at 10.4. She has a normal PTH level at 56 and occasionally has had low phosphorus levels. She denies any kidney stones. She does take hydrochlorothiazide 12.5 mg everyother day. She is also on candesartan 4 mg daily for blood pressure control. I reviewed with the patient that in the absence of any hematuria we need to focus on conservative management to help lower her proteinuria. We need to get a better sense of her blood pressure controland I have advised her to purchase a blood pressure machine and check it for accuracy and monitor blood pressure at home. I would recommend to discontinue the hydrochlorothiazide which may be contributing to her hypercalcemia and instead to increase the candesartan to 8 mg daily with goal blood pressure of less than 130/80. We will also screen her for sleep apnea especially in the setting of herelevated hemoglobin levels. We can consider addition of an SGLT2 inhibitor if she remains proteinuric. We also referred her to a dietitian to cut down on her protein intake as it currently is high at145 g per day. Weight reduction can also help alone her proteinuria. I plan to see her back in 3 months to assess the response to medication adjustments. documented in this encounter Plan of Treatment Scheduled Orders Name Type Priority Associated Diagnoses Orde r Schedule Cystatin C with Estimated GFR Lab Routine Glomerulonephritis Immunoglobulin A (IgA Nephropathy) Expected: 07/09/2025, Expires: 04/08/2026 Urinalysis, with Microscopic: Urine, Midstream Lab Routine Glomerulonephritis Immunoglobulin A (IgA Nephropathy) Expected: 07/09/2025, Expires: 07/09/2026 CBC with Differential, Blood Lab Routine Glomerulonephritis Immunoglobulin A (IgA Nephropathy) Expected: 07/09/2025, Expires: 04/08/2026 Comprehensive Metabolic Panel Lab Routine Glomerulonephritis Immunoglobulin A (IgA Nephropathy) Expected: 07/09/2025, Expires: 07/09/2026 CRP (C-Reactive Protein) Lab Routine Glomerulonephritis Immunoglobulin A (IgA Nephropathy) Expected: 07/09/2025, Expires: 04/08/2026 Creatinine Clearance, Serum and 24 hour Urine Lab Routine Glomerulonephritis Immunoglobulin A (IgA Nephropathy) Expected: 07/09/2025, Expires: 04/08/2026 Sodium, 24 hour, Urine Lab Routine Glomerulonephritis Immunoglobulin A (IgA Nephropathy) Expected: 07/09/2025, Expires: 04/08/2026 Sedimentation Rate Lab Routine Glomerulonephritis Immunoglobulin A (IgA Nephropathy) Expected: 07/09/2025, Expires: 04/08/2026 Protein, Total, 24 hour, Urine Lab Routine Glomerulonephritis Immunoglobulin A (IgA Nephropathy) Expected: 07/09/2025, Expires: 04/08/2026 Lipid Panel Lab Routine Glomerulonephritis Immunoglobulin A (IgA Nephropathy) Expected: 07/09/2025, Expires: 07/09/2026 25-Hydroxyvitamin D2 and D3 Lab Routine Glomerulonephritis Immunoglobulin A (IgA Nephropathy) Expected: 07/09/2025, Expires: 04/08/2026 Ferritin Lab Routine Glomerulonephritis Immunoglobulin A (IgA Nephropathy) Expected: 07/09/2025, Expires: 04/08/2026 Parathyroid Hormone (PTH) Lab Routine Glomerulonephritis Immunoglobulin A (IgA Nephropathy) Expected: 07/09/2025, Expires: 04/08/2026 Home Overnight Oximetry PFT Routine 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) Snoring Expected: 04/08/2025, Expires: 07/09/2026 Scheduled Referrals Name Type Priority Associated Diagnoses Orde r Schedule Nutrition - Nephrology medical nutrition therapy consult (clinic) Outpatient Referral Routine 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) Expected: 04/08/2025, Expires: 07/09/2026 Nephrology and Hypertension office visit (clinic) Outpatient Referral Routine Glomerulonephritis Immunoglobulin A (IgA Nephropathy) Expected: 07/09/2025, Expires: 07/09/2026 documented as of this encounter Visit Diagnoses Diagnosis Glomerulonephritis Immunoglobulin A (IgA Nephropathy)- Primary 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
--- OUTSIDE RECORDS SUMMARY | 2025-04-26 08:00 | XMS_ITS | Encounter Summary ---
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 [address] [place] [phone] Phone: tel: fax: [facility] Referral ID Status Reason Start Date Expiration Date Visits Re quested Visits Authorized [id number] Closed 04/08/2025 10/08/2026 1 1 Encounter Details Date Type Department Care Team (Latest Contact Info) Description 04/26/2025 8:00 AM CDT Telemedicine Division of Nephrology and Hypertension in [place], [place] [address] [place] [phone] Ángel Cleveland M.B.B.S. 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 No 04/19/2025 Social Connection and Isolat ion Panel [NHANES] Answer Date Recorded Frequency of Communication w ith Friends and Family Three times a week 07/16/2019 Frequency of Social Gatherin gs with Friends and Family Once a week 07/16/2019 Attends Evangelical Services More than 4 times per year [...] Health [facility] Occupat ional [facility] - Occupational [...] the money to buy more. Never true 04/19/20 25 Within the past 12 months, t he food you bought just didn't last and you didn't have money to get more. Never true 04/19/2025 PRAPARE - Transportation Answer Date Re corded In the past 12 months, has l ack of transportation kept you from medical appointments or from getting medications? No 04/01 In the past 12 months, has l ack of transportation kept you from meetings, work, or from getting things needed for daily living? No 04/19/2025 Nutrition Answer Date Recorded On average, how [...] your living situation today? [facility] have a [facility] place to live 04/19/2025 Education Answer Date Recorded What is the highest level of school you have completed or the highest degree you have received? 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 Gender Identity Female 05/12/2018 9:12 AM CDT Sexual Orientation Straight 05/12/2018 9: 12 AM CDT documented as of this encounter Last Filed Vital Signs Vital Sign Reading Time Taken Comments Blood Pressure - - Pulse - - Temperature - - Respiratory Rate - - Oxygen Saturation - - Inhaled Oxygen Concentration - - Weight 91.7 kg (202 lb 2.6 oz) 04/26/2025 8:01 A M CDT Height 170.1 cm (5' 6.97) 04/26/2025 8:01 AM CD T Body Mass Index 31.69 04/26/2025 8:01 AM CDT documented in this encounter Progress Notes * Sylvia Jackman RDN, LD - 04/26/2025 8:00 AM CDT CHIEF COMPLAINT/REASON FOR VISIT Patient referred by Ángel Cleveland M.B.B.S. 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 Consult conducted via real-time audio/video technology by Sylvia Jackman RDN, LD [facility] to the patient in Patient's Home Start time: 8:03 am End time: 8:45 am This is visit number 1 in this calendar year. Today's visit lasted 42 minutes. Including today's visit, cumulative minutes of MNT for this diagnosis this calendar year: 42 minutes. HISTORY OF PRESENT ILLNESS Pertinent PMH: .IgA nephropathy, HTN, CKD3, hypercalcemia Allergies: NKFA Past Dietitian Visits: 0 ASSESSMENT Relevant Social and Food/Nutrition Related History: Glendy Vieira reports she is working on losing weight and working with a nutrition leadership coach. Sheis counting macros and shooting for 145 g protein, 200 for carbs and 85 fat. After her visit with the general merchandise salesperson she cut protein down to 70 g per day, She uses my fitness pal to track her meals. She is getting about 1-2 veg, 2 fruit daily. She is not specifically reducing sodium, but does eat a low sodium diet. She is drinking about 48 oz of water and 16-20 oz of coffee daily. She reports exercising daily-walking miranda, resistance training, but the last couple of weeks have been busy and was unable to fit this into her schedule. Nutrition Questionnaire Breakfast: lao yogurt 20 g protein coffee with creamer Morning snack: - Lunch: bring lunch, leftovers, PB sandwich 2 tbsp, fruit/bananas and berries, apple smart pop Afternoon snack: rarely Evening meal: protein chicken, beef or pork, with potato or rice and a vegetable Bedtime snack: popcorn Beverage intake: 24 oz plus 24 oz sparkling water, 2 cups coffee with flavored creamer Alcohol intake: - Vitamins/Supplement Intake: no Pertinent labs: Ca: 10.1 Manager Contracting: 1.19 eGFR: 57 Weight History Ht Readings from Last 1 Encounters: 04/08/25 170.1 cm Wt Readings from Last 1 Encounters: 04/08/25 91.7 kg BMI Readings from Last 1 Encounters: 04/08/25 31.71 kg/m?? Wt Readings from Last 6 Encounters: 04/08/25 91.7 kg 03/24/25 93.2 kg 10/18/21 95.4 kg 10/15/19 95.2 kg 06/17/19 92.8 kg 06/19/18 86.2 kg Estimation of Nutritional Needs: PROTEIN Weight:92 kg (actual body weight) Protein Range: 0.8 grams/kg Protein Goal: 73 grams per day Energy Goal:1840 kcals -306=[id number] kcals for weight loss NUTRITION DIAGNOSIS Food- and nutrition-related knowledge deficit related to no prior exposure to specific nutritional guidelines for CKD as evidenced by patient questions and diet recall. Nutrition Prescription/Recommendation 5911-5333 mg sodium; 70 g protein, 3 balanced meals containing 3 food groups, using the plate method and mediterranean diet concepts to guide weight loss. INTERVENTION Counseling: Discussed limiting sodium intake to 1500- 2300 mg per day. Encouraged limiting processed foods Encouraged incorporating more plant based proteins into diet Discussed fluid intake Discussed adding more fruits and veggies into diet Encouraged physical activity Barriers identified to implementing recommendations: none Education Materials provided/reviewed: Guidelines on Controlling Sodium; Mediterranean diet and meal plan, Strategies for weight loss, protein handout Also See Patient Education Record for information. MONITORING AND EVALUATION: Nutrition parameter to monitor: Food/nutrient intake; Lab values Desired Outcome: Maintain nutrition related lab values within target range Plan/Patient Goal(s): 1. 1500- 2300 mg sodium 2. 70 gm total protein from both animal and plant-based sources 3. Limit processed foods 4. At least 5 fruits and vegetables daily 5. 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
[2025-05-20 11:13] LABS: Chloride* 108 mmol/L (96-114); Potassium* 4.2 mmol/L (3.6-5.1); Sodium* 140 mmol/L (135-149)
[2025-05-20 11:16] LABS: Anion Gap 8 mEq/L (7-15); Blood Urea Nitrogen* 12 mg/dL (5-24); Calcium* 9.5 mg/dL (8.4-10.6); Carbon Dioxide* 24 mmol/L (20-32); Creatinine* 0.9 mg/dL (0.5-1.5); Estimated Glomerular Filt Rate 80 ml/min; Glucose* 117 mg/dL (60-115)
--- OUTSIDE RECORDS SUMMARY | 2025-05-20 13:09 | XMS_ITS | Encounter Summary ---
Author Organization [facility] Address [address] [place] [id number] Care Team Providers Care Internet Architect Name Role Phone Elsewhere, Pcp Primary Care Provider Unavailabl e Reason for Visit * Reason Onset Date Comments Follow-up Orders 04/08/2025 Encounter Details Date Type Department Care Team (Latest Contact Info) Description 04/08/2025 Clinical Communication Division of Nephrology and Hypertension in [place], [place] [address] [place] [phone] Qian Marie M.D. [address] [place] [phone] Follow-up Orders Social History Tobacco Use Types Packs/Day Years Used Date Smoking Tobacco: Never Smokeless Tobacco: Never Alcohol Use Standard Drinks/Week Comments Yes 2 (1 standard drink = 0.6 oz pur e alcohol) 1-[address] per [address] [facility] Utilities Answer Date Recorded In the past 12 months has [employer], gas, oil, or water [employer] threatened to shut off services in your home? No 04/19/2025 Social Connection and Isolat ion Panel [NHANES] Answer Date Recorded Frequency of Communication w ith Friends and Family Three times a week 07/16/2019 Frequency of Social Gatherin gs with Friends and Family Once a week 07/16/2019 Attends Restorationist Services More than 4 times per year [...] Living Expenses Not hard at all 06/17/2019 [facility] of Occupat ional Health - Occupational Stress [...] have a st mini place to live 04/19/2025 Education Answer Date Recorded What is the highest level of school you have completed or the highest degree you have received? 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 Send to:Fax to facility Name of facility: [facility] Fax or Date of Orders/Encounter: 04/08/25 Provider: Qian Marie Lab order(s) to be sent: Home Overnight Oximetry [[id number]] Imaging order(s)to be sent: Infusion order(s) to be sent: Additional information: Upon receiving, please call patient to schedule at their convenience. documented in this encounter Plan of Treatment Not on file documented as of this encounter Visit Diagnoses Not on filedocumented in this encounter Care Teams Internet Architect Relationship Specialty Start Date End Date Elsewhere, Pcp PCP - General Family Medicine 07/16/18 documented as of this encounter
--- OUTSIDE RECORDS SUMMARY | 2025-05-20 13:09 | XMS_ITS | Encounter Summary ---
Author Organization [facility] Address [address] [place] [address] Care Team Providers Care Jewelry Sorter Name Role Phone Elsewhere, Pcp Primary Care Provider Unavailabl e Reason for Visit * Reason Onset Date Comments Med Refill 05/12/2025 Encounter Details Date Type Department Care Team (Late st Contact Info) Description 05/12/2025 Refill Division of Nephrology and Hypertension in [place], [place] [address] [place] [phone] Ángel Cleveland M.B.B.S. [address] [place] [phone] Med Refill Social History Tobacco Use Types Packs/Day Years Used Date Smoking Tobacco: Never Smokeless Tobacco: Never Alcohol Use Standard Drinks/Week Comments Yes 2 (1 standard drink = 0.6 oz pur e alcohol) 1-2 per week [facility] Utilities Answer Date Recorded In the past 12 months has [employer], gas, oil, or water [employer] threatened to shut off services in your home? No 04/19/2025 Social Connection and Isolat ion Panel [NHANES] Answer Date Recorded Frequency of Communication w ith Friends and Family Three times a week 07/16/2019 Frequency of Social Gatherin gs with Friends and Family Once a week 07/16/2019 Attends [employer] Services More than 4 times per year [...] Living Expenses Not hard at all 06/17/2019 [facility] [place] of Occupat ional Health - Occupational Stress [...] Master's degree (e.g., MA, MS, Viraj, MEd, PRIVACY COMPLIANCE MANAGER, SIMONE) 06/16/2019 Comments Unknown Sex and Gender Information Value Date Recorded Sex Assigned at Female 05/12/2018 9:12 AM CDT Legal 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
--- OUTSIDE RECORDS SUMMARY | 2025-05-20 13:09 | XMS_ITS | Encounter Summary ---
Author Organization [facility] Address [address] [place] [address] Care Team Providers Care Long Chain Dyeing Machine Operator Name Role Phone Elsewhere, Pcp Primary Care Provider Unavailabl e Encounter Details Date Type Department Care Team (Latest Contact Info) Description 04/15/2025 Results Follow-Up Division of Nephrology and Hypertension in [place], [place] [address] [place] [address] Qian Marie M.D. [address] [place] [address] Parathyroid Hormone (PTH), 25-Hydroxyvitamin D2 and D3, Phosphorus Inorganic, Additional followed-up results: 2 Social History Tobacco Use Types Packs/Day Years Used Date Smoking Tobacco: Never Smokeless Tobacco: Never Alcohol Use Standard Drinks/Week Comments Yes 2 (1 standard drink = 0.6 oz pur e alcohol) 1-2 per week [facility] Utilities Answer Date Recorded In the past 12 months has [employer], gas, oil, or water [employer] threatened to shut off services in your [...] Living Expenses Not hard at all 06/17/2019 [facility] [place] of Occupat ional Health - Occupational Stress [...] degree you have received? 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 - 05/13/2025 12:02 PM CDTAddended by: QIAN MARIE on: 05/13/2025 12:02 PM Modules accepted: Orders * Addendum Note - Tila Luna RMatheusNMatheus - 05/10/2025 4:41 PM CDTAddended by: TILA LUNA on: 05/10/2025 04:41 PM Modules accepted: Orders * Addendum Note - Tila Luna RMatheusNMatheus - 05/10/2025 2:58 PM CDTAddended by: TILA LUNA on: 05/10/2025 02:58 PM Modules accepted: Orders documented in this encounter Plan of Treatment Not on file documented as of this encounter Visit Diagnoses Diagnosis Glomerulonephritis Immunoglobulin A (IgA Nephropathy)- Primary documented in this encounter Care Teams Long Chain Dyeing Machine Operator Relationship Specialty Start Date End Date Elsewhere, Pcp PCP - General Family Medicine 07/16/18 documented as of this encounter
--- OUTSIDE RECORDS SUMMARY | 2025-05-20 13:09 | XMS_ITS | Clinical Summary ---
Author Organization [facility] Address [address] [place] [address] Care Team Providers Care Service Tester Name Role Phone Elsewhere, Pcp Primary Care Provider Unavailabl e Source Comments Patient records contain information from all sites at [facility]. For routine questions regarding patient records, call [phone] during business hours, M-F 8:00 AM - 5:00 PM Central Time. Record requests for emergency care only can be directed to [phone] at any time.[facility] Allergies Active Allergy Reactions Criticality Noted Date [...] Inhale 1 puff daily. 30 each 11 5 03/01/20 26 Active candesartan (Atacand) 8 mg tabletIndications: Glomerulonephritis Immunoglobulin A (IgA Nephropathy) Take 1 tablet (8 mg total) by mouth 2 (two) times a day. 180 tablet 3 5 Active candesartan (Atacand) 8 mg tabletIndications: Glomerulonephritis Immunoglobulin A (IgA Nephropathy) Take 1 tablet (8 mg total) by mouth 2 (two) times a day. 180 tablet 3 5 Active candesartan (Atacand) 4 mg tabletIndications: Glomerulonephritis Immunoglobulin A (IgA Nephropathy) Take 2 tablets (8 mg total) by mouth daily. 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 Date Type Department Care Team Description 5 Refill Division of Nephrology and Hypertension in [place], [place] [address] [place] [address] Ángel Cleveland M.B.B.S. Med Refill 5 8:00 AM CDT Telemedicine Division of Nephrology and Hypertension in [place], [place] [address] [place] [address] Ángel Cleveland M.B.B.S. 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 Parathyroid Hormone (PTH), 25-Hydroxyvitamin D2 and D3, Phosphorus Inorganic, Additional followed-up results: 2 5 1:00 PM CDT Comprehensive Visit Division of Nephrology and Hypertension in [place], [place] [address] [place] [address] Qian Marie M.D. 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) Discharge Disposition: Home or Self Care 5 Clinical Communication Division of Nephrology and Hypertension in [place], [place] [address] [place] [phone] Qian Marie M.D. Follow-up Orders 5 6:40 PM CDT Ancillary Procedure Department of Otorhinolaryngology 5 2:30 PM CDT - 5 11:59 PM CDT Hospital Encounter Department of Laboratory Medicine and Pathology, [facility] in [place], [place] [address] [place] [address] Qian Marie M.D. 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) Discharge Disposition: Home or Self Care 5 2:00 PM CDT Comprehensive Visit Division of Pulmonary Medicine in [place], [place] [address] [place] [phone] Atif Ambrose M.D. 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 Med Refill from Last 3 Months Family History Medical History Relation Name Comments Anxiety disorder Brother 1 ceasar muhle Hyperlipidemia Brother 1 ceasar muhle Sleep apnea Brother 1 ceasar muhle Anxiety disorder Brother 2 bryant marissae Anxiety disorder Father lucas muhle Depression Father lucas muhle Diabetes Father lucas muhle Hypertension Father lucas muhle Stroke Maternal Grandmother erika arriaga Diabetes Paternal Grandfather migel anne Parkinsonism Paternal Grandfather migel byrd Anxiety disorder Paternal Grandmother erika byrd Depression Paternal Grandmother erika byrd Relation Name Status Comments Brother 1 ceasar byrd Brother 2 bryant byrd Father lucas byrd Maternal Grandmother erika arriaga Paternal Grandfather migel byrd Paternal Grandmother erika byrd Social History Tobacco Use Types Packs/Day Years Used Date Smoking Tobacco: Never Smokeless Tobacco: Never Tobacco Cessation:Counseling Given: Not Answered Alcohol Use Standard Drinks/Week Comments Yes 2 (1 standard drink = 0.6 oz pur e alcohol) 1-[address] [facility] Utilities Answer Date Recorded In [...] and Family Once a week 07/16/2019 Attends [employer] Services More than 4 times per year [...] Expenses Not hard at all 06/17/2019 [facility] of Occupat ional Health - Occupational Stress [...] today? I have a [facility] place to live 04/19/2025 Education Answer Date Recorded What is the highest level of school you have completed or the highest degree you have received? 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 Comment: ----ADDITIONAL INFORMATION---- This test was developed and its performance characteristics determined by [facility] in a manner consistent with CLIA requirements. This test has not been cleared or approved by the U.S. Food and Drug Administration. Blood (Blood, Venous) 04/08/2025 9:52 AM CDT 04/08/2025 12:21 PM CDT Qian Marie M.D. LAB BLOOD ADD-ON Final Result Performing Organization Address [facility]/ZIP Co de Phone Number [facility] [address] [place] [address] [facility] [address] [place] [address] [place] [address] * 25-Hydroxyvitamin D2 and D3 (04/08/2025 9:52 AM CDT) 25-Hydroxy D2 <4.0 ng/mL 04/12/2025 2:44 PM CDT [facility] 25-Hydroxy D3 28 ng/mL 04/12/2025 2:44 PM CDT SDS 25-Hydroxy D Total 28 ng/mL 2024 2:44 PM CDT [facility] Comment: ----REFERENCE VALUE---- 25-HYDROXY D TOTAL (D2+D3) Optimum levels in the healthy population are 20-50. ----ADDITIONAL INFORMATION---- This test was developed and its performance characteristics determined by [facility] in a manner consistent with CLIA requirements. This test has not been cleared or approved by the U.S. Food and Drug Administration. Blood (Blood, Venous) 04/08/2025 9:52 AM CDT 04/08/2025 12:29 PM CDT Qian Marie M.D. LAB BLOOD ADD-ON Final Result Performing Organization Address City/[facility]/ZIP Co de Phone Number [facility] [address] [place] [address] [facility] [address] [place] [address] [place] [address] * Phosphorus Inorganic (04/08/2025 9:52 AM CDT) Only the most recent of2 resultswithin the time period is included. Phosphorus (Inorganic), S 3.0 2.5 - 4.5 mg/dL 04/08/2025 10:55 AM CDT D[facility] Blood (Blood, Venous) 04/08/2025 9:52 AM CDT 04/08/2025 10:25 AM CDT Qian Marie M.D. LAB BLOOD ADD-ON Final Result Performing Organization Address City/[facility]/ZIP Co de Phone Number [facility] [address] [place] [address] * Parathyroid Hormone (PTH) (04/08/2025 9:52 AM CDT) Pathologist [facility] Parathyroid Hormone (PTH), S 56 15 - 65 pg/mL 04/08/2025 10:55 AM CDT DTL Blood (Blood, Venous) 04/08/2025 9:52 AM CDT 04/08/2025 10:25 AM CDT Qian Marie M.D. LAB BLOOD ADD-ON Final Result Performing Organization Address City/[facility] Co de Phone Number [facility] 200 [place] [address], [place] [address] * (ABNORMAL) Comprehensive Metabolic Panel (04/08/2025 9:52 [...] Marie M.D. LAB BLOOD ADD-ON Final Result [place] [address] [place], [place] [address] DTL [facility] [address] [place] [address] * US Kidneys with Renal Artery Doppler [...] 24 hour, Urine (04/06/2025 5:26 AM CDT) Pathologist [facility] Sodium, 24 HR, U 80 22 - 328 mmol/24 h 04/07/2025 2:13 PM CDT DTL Collection Duration 24 h 04/07/2025 1:31 PM CDT DTL Urine Volume 1200 mL 04/07/2025 1:31 PM CDT DTL Urine (Urine, 24 Hours) 04/06/2025 5:26 AM CDT 04/07/2025 1:31 PM CDT Qian Marie M.D. LAB URINE ORDERABLES Final Resul t [facility] [address] [place] [address], [facility] [address] [place] [address] * (ABNORMAL) Protein, Total, 24 hour, Urine [...] M.D. LAB URINE ORDERABLES Final Resul t [facility] [address] [place] [address], [facility] [address] [place] [address] * (ABNORMAL) Creatinine Clearance, Serum and 24 [...] AM CDT 04/07/2025 1:31 PM CDT Narrative [facility] - 04/07/2025 2:41 PM CDT Specimen Information: Specimen ID: [id number] Specimen Type: Urine Specimen Collection Start Date: 04/06/2025 5:26 AM Specimen Received Date: 04/07/2025 1:31 PM Specimen ID: [id number] Specimen Type: Blood Specimen Collection Start Date: 04/05/2025 8:49 AM Specimen Received Date: 04/07/2025 1:42 PM Qian Marie M.D. LAB URINE ORDERABLES Final Resul t [facility] [address] [place] [address], [facility] [address] [place] [address] * Pulmonary Function Tests (03/24/2025 12:38 PM CDT) FVC 3.95 L 03/24/2025 1:29 PM CDT [facility] FEV1 3.08 L 03/24/2025 1:29 PM CDT [facility] FEV1/FVC 78.05 % 03/24/2025 1:29 PM CDT [facility] GTL34-68% 2.78 L/s 03/24/2025 1:29 PM CDT [facility] PEF PRE 5.84 L/s 03/24/2025 1:29 PM CDT [facility] PIF PRE 4.48 L/s 03/24/2025 1:29 PM CDT [facility] Pre FEF50/FIF50 121.20 % 03/24/2025 1:29 PM CDT [facility] FET PRE 11.48 sec 03/24/2025 1:29 PM CDT [facility] MVV 82.61 L/min 03/24/2025 1:29 PM CDT [facility] DLCO 25.04 ml/(min*mm Hg) 03/24/2025 1:29 PM CDT [facility] DLCOc 23.58 ml/(min*mm Hg) 03/24/2025 1:29 PM CDT [facility] HB 15.60 g(Hb)/dL 03/24/2025 1:29 PM CDT [facility] Pre % Pred [place] SINGLE BREATH 5.32 L 03/24/2025 1:29 PM CDT [facility] PulseRest 85.00 1/min 03/24/2025 1:29 PM CDT [facility] N0BhzEtei 98.00 % 03/24/2025 1:29 PM CDT [facility] PulseExer 109.00 1/min 03/24/2025 1:29 PM CDT [facility] EXER TIME 3.00 min 03/24/2025 1:29 PM CDT [facility] STEP HEIGHT PRE 9.00 Inch 03/24/2025 1:29 PM CDT [facility] 03/24/2025 12:3 8 PM CDT Impressions [facility] - 03/24/2025 1:29 PM CDT Abnormal. [...] Sales APRN, C.N.P. PFT ORDERABLES Final Result [facility] NA * Laryngopharyngoscopy-Otorhinolaryngology Image Exam (03/24/2025 11:50 AM CDT) Narrative [facility] - 03/24/2025 11:50 AM CDT This order has been created and auto-finalized to support the import of images acquired without order. The clinical documentation to support these images can be found on the encounter that produced images. us Provider Not In System IMG NON RAD IMAGING PROCE DURES Final Result Performing Organization Address City/[facility] Co de Phone Number [facility] NA * (ABNORMAL) Dipstick, Urine (03/24/2025 10:00 [...] ORDER PRUDENCE Final Result Performing Organization Address [facility] de Phone Number [facility] [address] DTL [facility] [address] [place] [address] * Microscopic Automated (03/24/2025 10:00 AM CDT) Pathologist [facility] Microscopy Normal 03/24/2025 10:27 AM CDT DTL RBC None Seen <3 /hpf 03/24/2025 10:27 AM CDT DTL WBC None Seen /hpf 03/24/2025 10:27 AM CDT DTL Comment: ----REFERENCE VALUE---- <4 (Males) <11 (Females) Urine 03/24/2025 10:0 0 AM CDT 03/24/2025 10:00 AM CDT Aleisha Sales APRN, C.N.P. LAB URINE ORDER PRUDENCE Final Result Performing Organization Address City/[facility]/ZIP Co de Phone Number [facility] [address] [place], [place] [address] [place] [address] [address] [place] [address] * pH, Urine (03/24/2025 10:00 AM CDT) pH, U 5.6 4.5 - 8.0 03/24/2025 10: 45 AM CDT DTL Urine 03/24/2025 10:0 0 AM CDT 03/24/2025 10:00 AM CDT Aleisha Sales APRN, C.N.P. LAB URINE ORDER PRUDENCE Final Result [facility] [address] [place] [address] * Osmolality, Urine (03/24/2025 10:00 AM CDT) Pathologist [facility] Osmolality, U 228 150 - 1150 mOsm/kg 03/24/2025 10:45 AM CDT DT Urine 03/24/2025 10:0 0 AM CDT 03/24/2025 10:00 AM CDT Aleisha Sales APRN, C.N.P. LAB URINE ORDER PRUDENCE Final Result [facility] [address] [place] [address] * (ABNORMAL) Urinalysis, with Microscopic: Urine, Midstream [...] C.N.P. LAB URINE ORDER PRUDENCE Final Result [facility] [address] [place] [address], [facility] [address] [place] [address] * (ABNORMAL) ANCA (Antineutrophil Cytoplasmic Antibodies) Vasculitis Panel (03/24/2025 9:27 AM CDT) Pathologist [facility] Myeloperoxidase Ab, S 7.7(H) <0.4 (Negative ) U 03/24/2025 1:38 PM CDT [facility] Comment:Interpretation: Posi tive (>=1.0) Proteinase 3 Ab (PR3), S <0.2 <0.4 (Negative ) U 03/24/2025 1:38 PM CDT [facility] Blood (Blood, Venous) 03/24/2025 9:27 AM CDT 03/24/2025 11:57 AM CDT us Aleisha Sales APRN, C.N.P. LAB BLOOD ADD-O N Final Result [facility] [address] [place] [address] [facility] [address] [place] [address] * (ABNORMAL) Cytoplasmic Neutrophil Antibodies (03/24/2025 9:27 AM CDT) c-ANCA Negative Negative 03/28/2025 9:33 AM CDT [facility] Perinuclear (P-ANCA) Positive(A) Negative 03/28/2025 9:33 AM CDT [facility] Comment: Positive for MPO antibodies by solid-phase immunoassay and pANCA pattern by immunofluorescence. Consistent with ANCA-associated vasculitis, if compatible clinical features are present. ----ADDITIONAL INFORMATION---- This test was developed and its performance characteristics determined by [facility] in a manner consistent with CLIA requirements. This test has not been cleared or approved by the U.S. Food and Drug Administration. Blood 03/24/2025 9:27 AM CDT 03/24/2025 1:46 PM CDT us Aleisha Sales APRN, C.N.P. LAB BLOOD ADD-O N Final Result [facility] [address] [place] [address] [facility] [address] [place] [address] [place] [address] * (ABNORMAL) CBC with Differential, Blood (03/24/2025 [...] ADD-O N Final Result Performing Organization Address City/[facility]/ZIP Co de Phone Number [facility] [address] [facility] [address] [place] [address] * (ABNORMAL) CRP (C-Reactive Protein) (03/24/2025 9:27 AM CDT) C-Reactive Protein (CRP), S 5.5(H) <5.0 mg/L 03/24/2025 10:42 AM CDT DTL Blood (Blood, Venous) 03/24/2025 9:27 AM CDT 03/24/2025 10:12 AM CDT us Aleisha Sales APRN, C.N.P. LAB BLOOD ADD-O N Final Result Performing Organization Address City/[facility]/ZIP Co de Phone Number [facility] [address] [facility] 200 [place] [address] * Uric Acid (03/24/2025 9:27 AM CDT) Uric Acid, S 5.6 2.7 - 6.1 mg/dL 03/24/2025 10:42 AM CDT DTL Blood (Blood, Venous) 03/24/2025 9:27 AM CDT 03/24/2025 10:12 AM CDT Aleisha Sales APRN, C.N.P. LAB BLOOD ADD-O N Final Result [facility] [address] [place] [address] * (ABNORMAL) Glucose, Fasting (03/24/2025 9:27 AM CDT) Glucose, P 117(H) 70 - 100 mg/dL 03/24/2025 11:07 AM CDT DTL Last Intake 3 hr 03/24/2025 10:01 AM CDT [facility] Blood (Blood, Venous) 03/24/2025 9:27 AM CDT 03/24/2025 10:01 AM CDT Aleisha Sales APRN, C.N.P. LAB BLOOD NON A DD-ON Final Result Performing Organization Address City/[facility]/ZIP Co de Phone Number [facility] [address] [facility] [address] [place] [address] from Last 3 Months Insurance [employer] [facility] [place] [id number] Care Teams Service Tester Relationship Specialty Start Date End Date Elsewhere, Pcp PCP - General Family Medicine 07/16/18
--- OUTSIDE RECORDS SUMMARY | 2025-05-20 13:09 | XMS_ITS | Encounter Summary ---
Author Organization [facility] Address [address] [place] [address] Care Team Providers Care Building Illuminating Engineer Name Role Phone Elsewhere, Pcp Primary Care Provider Unavailabl e Encounter Details Date Type Department Care Team (Late st Contact Info) Description 03/21/2025 Orders Only Virtual Review in [place], [place] [address] [place] [address] Beatris Mendiola Social History Tobacco Use Types Packs/Day Years Used Date Smoking Tobacco: Never Smokeless Tobacco: Never Alcohol Use Standard Drinks/Week Comments Yes 2 (1 standard drink = 0.6 oz pur e alcohol) 1-2 per week [facility] Utilities Answer Date Recorded In the [...] and Family Once a week 07/16/2019 Attends Mandaeism Services More than 4 times per year [...] Living Expenses Not hard at all 06/17/2019 [facility] [place] of Occupat ional Health - Occupational Stress [...] your living situation today? I have a [facility] place to live 03/30/2024 Education Answer Date Recorded What is the highest level of school you have completed or the highest degree you have received? 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
--- OUTSIDE RECORDS SUMMARY | 2025-05-20 13:09 | XMS_ITS | Encounter Summary ---
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 [address] [place] [address] Phone: tel: fax: [facility] Referral ID Status Reason Start Date Expiration Date Visits Re quested Visits Authorized [id number] Closed 03/24/2025 06/24/2026 1 1 Encounter Details Date Type Department Care Team (Late st Contact Info) Description 03/24/2025 Orders Only Division of Nephrology and Hypertension in [place], [place] [address] [place] [phone] Qian Marie M.D. 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 I have a [facility] place to live 04/08/2025 Education Answer Date Recorded What is the highest level of school you have completed or the highest degree you have received? 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 LAB BLOOD ADD-ON Final Result [address] [address], [address] [address] * 1,25-Dihydroxyvitamin D (04/08/2025 9:52 AM CDT) [facility] 1, 25 DIHYDROXYVITAMIN D, S 35 18 - 78 pg/mL 04/11/2025 3:14 PM CDT [facility] Comment: ----ADDITIONAL INFORMATION---- This test was developed and its performance characteristics determined by [facility] in a manner consistent with CLIA requirements. This test has not been cleared or approved by the U.S. Food and Drug Administration. Blood (Blood, Venous) 04/08/2025 9:52 AM CDT 04/08/2025 12:21 PM CDT Qian Marie M.D. LAB BLOOD ADD-ON Final Result Performing Organization Address [facility] Co de Phone Number [facility] [address] [place] [address] [facility] [address] [place] [address] [place] [address] * Phosphorus Inorganic (04/08/2025 9:52 AM CDT) Phosphorus (Inorganic), S 3.0 2.5 - 4.5 mg/dL 04/08/2025 10:55 AM CDT DTL Blood (Blood, Venous) 04/08/2025 9:52 AM CDT 04/08/2025 10:25 AM CDT us Qian Marie M.D. LAB BLOOD ADD-ON Final Result Performing Organization Address [facility] de Phone Number [facility] [address] [place] [address], [facility] [address] [place] [address] * 25-Hydroxyvitamin D2 and D3 (04/08/2025 9:52 AM CDT) 25-Hydroxy D2 <4.0 ng/mL 04/12/2025 2:44 PM CDT SDS 25-Hydroxy D3 28 ng/mL 04/12/2025 2:44 PM CDT SDS 25-Hydroxy D Total 28 ng/mL 2024 2:44 PM CDT [facility] Comment: ----REFERENCE VALUE---- 25-HYDROXY D TOTAL (D2+D3) Optimum levels in the healthy population are 20-50. ----ADDITIONAL INFORMATION---- This test was developed and its performance characteristics determined by [facility] in a manner consistent with CLIA requirements. This test has not been cleared or approved by the U.S. Food and Drug Administration. Blood (Blood, Venous) 04/08/2025 9:52 AM CDT 04/08/2025 12:29 PM CDT us Qian Marie M.D. LAB BLOOD ADD-ON Final Result [facility] [address] [place] [address] [facility] [address] [place] [address] [place] [address] * Parathyroid Hormone (PTH) (04/08/2025 9:52 AM CDT) Parathyroid Hormone (PTH), S 56 15 - 65 pg/mL 04/08/2025 10:55 AM CDT DTL Blood (Blood, Venous) 04/08/2025 9:52 AM CDT 04/08/2025 10:25 AM CDT us Qian Marie M.D. LAB BLOOD ADD-ON Final Result Performing Organization Address City/[facility]/ZIP Co de Phone Number [facility] [address] [place] [address], [facility] [address] [place] [address] * US Kidneys with Renal Artery Doppler [...] stenosis. 2. No hydronephrosis. Qian Marie M.D. IM US PROCEDURES Final Result * Sodium, 24 [...] M.D. LAB URINE ORDERABLES Final Resul t Performing Organization Address [facility] de Phone Number [facility] [address] [place] [address], [facility] [address] [place] [address] * (ABNORMAL) Protein, Total, 24 hour, Urine [...] M.D. LAB URINE ORDERABLES Final Resul t Performing Organization Address [facility] de Phone Number [facility] [address] [place] [address], [facility] [address] [place] [address] * (ABNORMAL) Creatinine Clearance, Serum and 24 [...] CDT 04/07/2025 1:31 PM CDT Narrative [facility] - 04/07/2025 2:41 PM CDT Specimen Information: Specimen ID: [id number] Specimen Type: Urine Specimen Collection Start Date: 04/06/2025 5:26 AM Specimen Received Date: 04/07/2025 1:31 PM Specimen ID: [id number] Specimen Type: Blood Specimen Collection Start Date: 04/05/2025 8:49 AM Specimen Received Date: 04/07/2025 1:42 PM Qian Marie M.D. 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
--- OUTSIDE RECORDS SUMMARY | 2025-05-21 00:26 | XMS_ITS | Encounter Summary ---
Author Organization [facility] Address [address] [place] [address] Phone Care Team Providers Care Clay Grinder Name Role Phone Flores Carter MD Primary Care Provider [phone] Reason for Visit * Reason Comments Med Refill Encounter Details Date Type Department Care Team (Late st Contact Info) Description 10/11/2022 Refill [facility] [address] [place], [place] [phone] Micky Chandra PA [address] [place], [place] [address] Chronic kidney disease stage 2; IgA nephropathy; [...] specified documented in this encounter Care Teams Clay Grinder Relationship Specialty Start Date End Date Flores Carter MD [address] [place] [address] PCP - General 06/12/23 documented as of this encounter
--- OUTSIDE RECORDS SUMMARY | 2025-05-21 00:26 | XMS_ITS | Clinical Summary ---
Author Organization [facility] Address [address] [place] [address] Care Team Providers Care Certified Pharmacist Assistant Name Role Phone Ambrocio Sue DO Primary Care Provider + Allergies Active Allergy [...] (DME)Indications :Gastrocnemius equinus, unspecified laterality,Plant ar fasciitis [phone] Plantar Fascia Night Splint, Medium 1 Each 12/10/2022 Active Active Problems Problem Noted Date Diagnosed Date Nephritis and nephropathy, n ot specified as acute or chronic, with unspecified pathological lesion in kidney 02/21/2006 Ventricular septal defect 02/21/2006 Need for desensitization to allergens 02/21/2006 Encounters Date Type Department Care Team Description 04/13/2025 Transcribe Orders [facility] [address] [place] [address] Ángel [place] MD from Last 3 Months Immunizations Immunization Administration Dates Next Due Td, [...] on file 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 Gender Identity Not on file Sexual Orientation [...] Comments Blood Pressure 125/85 12/10/2022 3:33 PM CAFETERIA OPERATOR tow er Pulse 72 12/10/2022 3:33 PM CAFETERIA OPERATOR Temperature 36.5 C (97.7 F) 10/02/2010 9:27 AM CDT Respiratory Rate 16 09/14/2010 2:34 PM CDT Oxygen Saturation 97% 12/10/2022 3:33 PM CAFETERIA OPERATOR Inhaled Oxygen Concentration - - Weight 98 kg (216 lb) 12/10/2022 3:33 PM CAFETERIA OPERATOR Height 171.5 cm (5' 7.5) 01/02/2010 9:02 AM CAFETERIA OPERATOR Body Mass Index - - Plan of Treatment Upcoming Encounters Date Type Department Care Team (Late st Contact Info) Description 06/08/2025 3:00 PM CDT Office Visit [facility] [address] [place] [address] Juice Christy MD [address] [place] [address] Health Maintenance Due Date Last Done Comments Depression screening for age 12+ 1991 HIV for age 15-65 1994 BMI (ht and wt on same day) for age 18+ 1997 Hepatitis C screening for ag e 18-79 1997 Hepatitis B series for 19+ ( 1 of 3 - 19+ 3-dose series) 1998 Pneumococcal series for age 6-49 (1 of 2 - PCV) 1998 Tetanus booster 07/05/2018 07/05/2008, 12/01/1996 Colonoscopy through age 75 01/31/2024 Lipids for age 45-75 01/31/2024 07/05/2008, 01/24/20 05 Mammogram for age 45-75 01/31/2024 COVID-19 vaccine series ( season) 2024 10/19/2021, 2021, 01/02/2021 Influenza Vaccine [...] 16 Negative Negative 06/26/2023 1:50 PM CDT [facility] TYPE 18 Negative Negative 06/26/2023 1:50 PM CDT [facility] OTHER HIGH RISK TYPES Negative Negative 06/26/2023 1:50 PM CDT [facility] Other (Cervical) 06/20/2023 4:30 PM CDT 06/25/2023 11:53 AM CDT Narrative [facility] - 06/26/2023 1:50 PM CDT HPV types 16, 18, 31, 33, 35, 39, 45, 51, 52, 56, 58, 59, 66 and 68 DNA were undetectable or below the pre-set threshold. Methodology: Rohini Cristiano 4800 HPV Test Maame Palacios PRINCIPAL SOFTWARE ARCHITECT MICROBIOLOGY Final Res ult [facility] [address] [place] [address], * LIPID PANEL (07/05/2008 11:21 AM CDT) [facility] CHOLESTEROL,TOTAL 131 110 - 199 mg/dL [facility] TRIGLYCERIDES 101 40 - 149 mg/dL [facility] HDL CHOLESTEROL 43 >40 mg/dL [facility] CHOL/HDL RATIO 3.05 <4.51 [facility] LDL CHOLESTEROL 68 <131 mg/dL [facility] PATIENT STATUS Fasting [facility] Blood specimen (specimen) BLOOD SPECIMEN / Unknown 07/05/2008 11:21 AM CDT 07/05/2008 11:15 AM CDT Ambrocio Sue DO CHEMISTRY Final Re sult [facility] INTERNAL ZIP [address] [place] [address] from Last 3 Months or Most Recently Relevant to Health Maintenance Insurance [facility] [employer] Care Teams Certified Pharmacist Assistant Relationship Specialty Start Date End Date Ambrocio Sue DO [address] [place] [address] PCP - General 12/17/05
--- OUTSIDE RECORDS SUMMARY | 2025-05-21 00:27 | XMS_ITS | Clinical Summary ---
Author Organization [facility] Address [address] [place] [address] Phone Care Team Providers Care Chicken Cutter Name Role Phone Flores Carter MD Primary Care Provider [phone] Allergies Active Allergy Reactions Criticality Noted Date Comments Erythromycin Rash Low 12/17/2005 Sulfa Antibiotics Itching Low 07/28/2024 Midazolam 01/19/2020 Medications cetirizine (ZyrTEC) 10 MG tablet Take 10 mg by mouth 1 (one) time each day Active norethindrone (MICRONOR) 0.35 MG tablet Take 1 tablet by mouth 1 (one) time each day Active Cholecalcifero l (Vitamin D) 50 MCG (1999) capsule Take 2,000 Units by mouth 1 (one) time each day Active candesartan (ATACAND) 4 MG tabletIndicati ons:Chronic kidney disease stage 2,IgA nephropathy,Es sential (primary) hypertension,P roteinuria, not otherwise specified TAKE 1 TABLET(4 MG) BY MOUTH EVERY DAY 90 tablet 3 5 Active Additional Information Patient taking differently: 8 mg Oral 2 times daily, Morning, Evening, Reported on 05/05/2025 hydroCHLOROthi azide 12.5 MG tablet TAKE 1 TABLET(12.5 MG) BY MOUTH EVERY OTHER DAY 45 tablet 3 5 05/05/20 25 Discontin ued(Thera py completed ) Active Problems Problem Noted Date Diagnosed Date Hyperglycemia 06/12/2023 Other specified disease of upper respiratory tra ct 02/18/2019 Chronic kidney disease stage 2 10/03/2016 Acute upper respiratory infection 10/03/2016 Diarrhea 10/03/2016 IgA nephropathy 03/21/2016 Proteinuria 03/23/2015 Essential (primary) hypertension 08/16/2013 Encounters Date Type Department Care Team Description 05/05/2025 [employer] [address] [place] [address] Nikole Trujillo RN from Last 3 Months Immunizations Immunization Administration Dates Next Due Influenza, [...] INTERFACED INSURANCE PM INTERFACED INSURANCE Care Teams Chicken Cutter Relationship Specialty Start Date End Date Flores Carter MD [address] [place] [address] PCP - General 06/12/23
--- OUTSIDE RECORDS SUMMARY | 2025-05-21 00:27 | XMS_ITS | Encounter Summary ---
Author Organization [facility] Address [address] [place] [address] Phone Care Team Providers Care Blower Operator Name Role Phone Flores Carter MD Primary Care Provider [phone] Encounter Details Date Type Department Care Team (Late st Contact Info) Description 05/05/2025 Telephone [employer] [address] [place] [address] Nikole Trujillo RN Social History Tobacco Use Types Packs/Day Years [...] on file documented as of this encounter Miscellaneous Notes * Telephone Encounter - Nikole Trujillo RN - 05/05/2025 2:33 PM CDT Reviewed with patient. She is planning on coming to her appointment in August with Dr. Erazo. We did discuss a little [facility] recommendation for 70 g/daily for protein intake. Advised this is reasonable. She was a on high protein diet for weight loss. She will continue to work for [facility] for current medication changes etc. Can discuss further with at August visit and whether she plans to continue with , [facility] or a combination of both. * Telephone Encounter - Radhames Erazo MD - 05/05/2025 11:26 AM CDT Yes. Calcium was a little high. So coming off of the thiazide makes sense. Increasing the ARB also good. 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 I am happy to continue to see her but of course [facility] is close by. I think they may even have a nephrology clinic in [place]. Dr. Degroot used to be there. * Telephone Encounter - Nikole Trujillo RN - 05/05/2025 10:36 AM CDT Glendy was seen at [facility] and creatinine was noted to be lower. She was referred to nephrology there and visited with them. Notes available in CareEverywhere. She notes changes to medications, increase in proteinuria and GFR of 57. It is unclear if she planson continuing with [facility] or understands that she doesn't need to have two nephrologists as she just left a message and I didn't speak to her directly. She does want your opinion as to whether or not the medication changes are appropriate etc. documented in this encounter Plan of Treatment Not on file documented as of this encounter Visit Diagnoses Not on filedocumented in this encounter Care Teams Blower Operator Relationship Specialty Start Date End Date Flores Carter MD [address] [place] [address] PCP - General 06/12/23 documented as of this encounter
== END 2025-05-20 10:34 | disposition home or self-care (01) ==
PROVIDERS: PCP Registered Nurse; Visit Provider Internal Medicine
DX: N02.8 Recurrent and persistent hematuria with other morphologic changes (principal)
CPT/HCPCS: 36415; 80048

== ENCOUNTER 2025-06-27 07:50 | Outpatient (CLI) | payer BC, SELFPAY | END 2025-06-27 07:51 | disposition home or self-care (01) | PROVIDERS: Referring Provider Registered Nurse; Visit Provider Registered Nurse | DX: F41.9 Anxiety disorder, unspecified (principal); Z13.6 Encounter for screening for cardiovascular disorders | CPT/HCPCS: 80061; 84443 ==

== ENCOUNTER 2025-08-04 14:57 | Outpatient (CLI) | payer BC, SELFPAY ==
--- NOTE | 2025-08-04 15:20 | CRLHL7_ITS ---
For Patients: As a result of the Century Cures Act, medical imaging exams and procedure reports are released immediately into your electronic medical record. You may view this report before your referring provider. If you have questions, please contact your health care provider. INDICATION: BILATERAL SCREENING MAMMOGRAM, ASYMPTOMATIC 45 Y/O FEMALE COMPARISON: 02/06/2024, 01/31/2023, 10/01/2021 TECHNIQUE: Digital mammogram in CC and MLO projections including computer-aided detection (CAD) and tomosynthesis. BREAST COMPOSITION: There are scattered areas of fibroglandular density. FINDINGS: No suspicious findings. ASSESSMENT: BI-RADS 2 Benign RECOMMENDATION: Annual screening mammogram. A lay language report of this examination will be provided to the patient. Dictated by: Radhames Carlos MD @ 08/05/2025 08:43:42 (Electronically Signed)
== END 2025-08-04 14:58 | disposition home or self-care (01) ==
LOC: MAMMO 14:57
PROVIDERS: Visit Provider Registered Nurse
DX: Z12.31 Encounter for screening mammogram for malignant neoplasm of breast (principal)
CPT/HCPCS: 77063; 77067

== ENCOUNTER 2025-08-24 20:53 | Outpatient (CLI) | payer BC, SELFPAY | END 2025-08-24 20:54 | disposition home or self-care (01) | LOC: SLEEP 20:54 | PROVIDERS: Visit Provider Internal Medicine | DX: G47.33 Obstructive sleep apnea (adult) (pediatric) (principal) | CPT/HCPCS: 95811 ==